=== PATIENT | male | born 1970 ===

== ENCOUNTER 2020-07-17 12:56 | Outpatient (REF) | payer OTHER, SELFPAY | END 2020-07-17 12:57 | disposition home or self-care (01) | LOC: HO.LAB 12:56 | PROVIDERS: Visit Provider Internal Medicine | DX: Z20.828 Contact with and (suspected) exposure to other viral communicable diseases (principal) | CPT/HCPCS: 36415; 87635 ==

== ENCOUNTER → 2020-08-03 09:22 | Outpatient (BNVA) | payer OTHER, SELFPAY | PROVIDERS: Visit Provider Internal Medicine Gastroenterology | DX: K29.70 Gastritis, unspecified, without bleeding (principal); K57.30 Diverticulosis of large intestine without perforation or abscess without bleeding; D12.6 Benign neoplasm of colon, unspecified; F11.90 Opioid use, unspecified, uncomplicated; Z98.890 Other specified postprocedural states | CPT/HCPCS: 99212 ==

== ENCOUNTER 2020-09-14 10:16 | Outpatient (REF) | payer OTHER, SELFPAY | END 2020-09-14 10:17 | disposition home or self-care (01) | LOC: HO.LAB 10:16 | PROVIDERS: Visit Provider Internal Medicine | DX: Z20.828 Contact with and (suspected) exposure to other viral communicable diseases (principal) | CPT/HCPCS: C9803; U0003 ==

== ENCOUNTER 2020-10-12 20:07 | Inpatient (IN) | payer OTHER, SELFPAY ==
--- NOTE | 2020-10-12 | XR_ITS ---
EXAMINATION: XR FINGER, LEFT CLINICAL INFORMATION: Index finger swelling. COMPARISON: No old films available for comparison at TECHNIQUE: 3 views of the left index finger. FINDINGS: There are 2 pins traversing the DIP joint and mid segment mid phalanx fracture second digit. A third pin is seen. Traversing obliquely through the fracture. There is moderate soft tissue swelling distal index finger. Is amputation of third digit beyond the proximal phalanx. No other abnormality seen. XR/XR finger LT min 2V IMPRESSION: Satisfactory alignment of mid segment mid phalanx fracture second digit with [address] There are 2 pins traversing the PIP joint. There is moderate soft tissue swelling involving the index finger. There is amputation of third digit beyond the proximal phalanx.
[2020-10-12 21:14] VITALS: BP 156/95; PULSE 111; RESP 18; TEMP 37.2; O2SAT 98; BMI 34.0
[2020-10-12 22:46] LABS: MANUAL DIFF FLAG NO
[2020-10-12 22:47] LABS: Basophils Percent Auto 0.2 % (0-2); Eosinophils Percent Auto 0.3 % (0-4); Hematocrit 44.1 % (42-52); Hemoglobin 15.7 g/dl (14.0-18.0); Imm Gran Abs Auto 0.04 X10*3/uL (0.00-0.03); Imm Gran Pct Auto 0.3 % (0.0-0.4); Lymphocytes Absolute Auto 1.8 X10*3/uL (1.2-4.9); Lymphocytes Percent Auto 14.3 % (20-40); Mean Corpuscular HGB Conc 35.6 g/dl (31.0-36.0); Mean Corpuscular Hemoglobin 29.5 pg (27.0-33.0); Mean Corpuscular Volume 82.9 fL (80-98); Monocytes Absolute Auto 0.9 X10*3/uL (0.1-1.2); Monocytes Percent Auto 7.1 % (2-11); Neutrophils Absolute Auto 9.8 X10*3/uL (2.0-8.3); Neutrophils Percent Auto 77.8 % (45-73); Platelet Count 212 X10*3/uL (160-400); Red Blood Count 5.32 X10*6/uL (4.60-5.80); Red Cell Distribution Width 12.2 % (11.0-16.0); White Blood Count 12.5 X10*3/uL (4.8-10.8)
[2020-10-12 23:05] LABS: Anion Gap 14 (12-20); Blood Urea Nitrogen 21 mg/dL (9-16); Calcium 9.1 mg/dL (8.4-10.2); Carbon Dioxide 27 mmol/L (22-29); Chloride 104 mmol/L (96-108); Creatinine Clr Calc Pharmacy 100.9; Estimated Glomerular Filt Rate > 60; Glucose Random 106 mg/dL (60-115); Potassium 4.1 mmol/l (3.3-5.1); Sodium 141 mmol/L (135-145)
[2020-10-12 23:07] LABS: INTERNATIONAL NORM RATIO 1.1 (0.9-1.1)
[2020-10-12 23:10] LABS: Partial Thromboplastin Time 32.9 SEC (24.1-38.0)
[2020-10-13] VITALS (8 sets, daily range): BP systolic 116–148; BP diastolic 64–108; PULSE 52–89; RESP 14–18; TEMP 36.6–36.9; O2SAT 95–99
--- NOTE | 2020-10-13 00:43 | CT_ITS ---
Patient name: Camilo Alejandre Date of : 1970 EXAMINATION: CT HEAD, LEFT WITH CONTRAST CLINICAL INFORMATION: Swelling of the left index finger. Question tenosynovitis. COMPARISON: Radiographs 10/12/2020 TECHNIQUE: Multidetector volumetric imaging of the left hand performed after administration of 85 mL of Omnipaque 350 IV contrast. Coronal and sagittal reformatted images are obtained and reviewed. This CT examination was performed using dose optimization techniques as appropriate, variously including the following: *Automated exposure control *Adjustment of mA and/or kV according to patient size (this includes techniques or standardized protocols for targeted exams where dose is matched to indication/reason for exam; i.e. extremities or head) *Use of iterative reconstruction technique DLP: 123 mGy-cm FINDINGS: There is a radiopaque pin in place in the second digit across the distal interphalangeal joint. There is a separate radiopaque wire at the middle phalanx. Alignment is maintained. There is soft tissue swelling of the second digit distally. No gross evidence of fluid collection. There is no definite fluid seen along the course of the extensor flexor tendons. Chronic appearing posttraumatic deformity at the distal radius. Amputation of the third digit at the head of the proximal phalanx. CT/CT hand LT w con IMPRESSION: Soft tissue swelling of the distal aspect of the second digit. No definite fluid collection. No gross evidence of fluid tracking along the tendon sheaths.
--- NOTE | 2020-10-13 01:07 | ED_ITS ---
HPI - Extremity Problem General Chief complaint: Extremity Injury, Upper Stated complaint: FINGER INFECTION Time Seen by Provider: 10/13/20 00:39 Source: patient Mode of arrival: ambulatory Limitations: no limitations History of Present Illness HPI Narrative: Patient presents to the left index finger swelling/redness, and pain that has been occurring since . Patient has history of crush injury and right index finger that had multiple wires placed by [facility] hand surgeon Dr. Vela. Patient states since incident he was informed by the surgeon he would not be able to flex his finger all the way. . Patient states small pus from fingertip MD Complaint: extremity pain Related Data Allergies Allergy/AdvReac Type Severity Reaction Status Date / Time No Known Allergies Allergy Verified 10/12/20 21:14 [No Known Allergies*] none Allergy Unknown Unknown Uncoded 10/12/20 21:14 Review of Systems Review of Systems: Yes all other systems are reviewed and are negative Constitutional: Constitutional: Reports as per HPI and Reports no additional constitutional complaints Eyes: Eyes: Reports as per HPI and Reports no additional eye complaints ENT: Reports system reviewed and no additional complaints, except as documented and Reports as per HPI Cardiovascular: Cardiovascular: Reports as per HPI and Reports no additional cardiovascular complaints Respiratory: Respiratory: Reports as per HPI and Reports no additional r espiratory complaints Gastrointestinal: Gastrointestinal: Reports as per HPI and Reports no additi onal gastrointestinal complaints Genitourinary: Genitourinary: Reports no additional male genitourinary complaints and Reports as per HPI Musculoskeletal: Musculoskeletal: Reports no additional musculoskeletal complaints and Reports as per HPI Comments: Right index finger swollen PAIN. Neurologic: Reports system reviewed and no additional complaints, except as documented and Reports as per HPI Psychiatric: Psychiatric: Reports no additional psychiatric complaints and Reports as per HPI [facility] Past Medical History Surgical History (Updated 08/03/20 @ 09:27 by Nazia Hooper MA) History of colonoscopy Family History Family History (Updated 08/03/20 @ 09:30 by Nazia Hooper MA) Father History of cancer Mother History of high blood pressure Social History Social History (Updated 08/03/20 @ 09:28 by Nazia Hooper MA) Alcohol intake: never Smoking Status: Current every day smoker Tobacco Type: Cigarette Packs Per Day: 0.5 Cigarettes Per Day: 10.0 Use of substances other than those prescribed or required for medical reasons: No Advance Directives: No Advance Directives Information Provided: No Physical Exam Vital Signs: Vital Signs: Last Vital Signs Temp 98.5 F 10/13/20 00:24 Pulse 67 10/13/20 03:05 Resp 16 10/13/20 03:05 BP 121/86 10/13/20 03:05 Pulse Ox 97 10/13/20 00:24 Body Mass Index 34.0 Const: General: cooperative, healthy appearing, comfortable, no acute distress, well developed, alert and awake Orientation/consciousness: patient oriented x3 HENMT: Head: Yes normal to inspection and Yes No palpable skull fracture present Eyes: General: appearance normal, both eyes and all related structures Neck: Neck: Yes normal visual inspection, Yes full ROM, Yes no lymphadenopathy, Yes no meningeal signs, Yes trachea midline, Yes supple and No tender Chest: Chest palpation & inspection: normal inspection of the chest and normal palpation of entire chest wall Breast/axilla inspection: normal inspection of the breasts Resp: Effort & Inspection: normal respiratory effort and able to speak in complete sentences Auscultation: clear to auscultation bilaterally Cardio: Jugular venous distension: no JVD Heart sounds: S1 normal heart sound present and S2 normal heart sound present GI: Inspection: Yes normal to inspection and No abdominal wall ecchymosis Palpation (GI): Soft to palpation, not firm, nontender, no guarding and not rigid : General: Yes no CVA tenderness Back/Spine/Pelvis: Back: no CVA tenderness and No back tenderness Skin: General skin exam: no rashes or lesions noted and elasticity normal Neuro: General: patient oriented x3, gait normal, no meningeal signs and CN's II-XI intact bilaterally Cranial nerves: Yes CN's II-XII intact bilaterally Extrem: Other: left index finger is swollen with decreased flexion and mild serosangous liquid drainage from fingertip. finger is red.. Psych: Appearance: grossly normal, well kempt and not disheveled Course Course Course Narrative: Patient will have labs and be sent for CT scan to rule out for tenosynovitis. Patient started on antibiotics IV. Reevaluation(s) Reevaluation #1: CASE SIGNED OUT TO DR. ORNELAS. PENDING CT SCAN OF HAND RESULTS Time: 02:09 Reevaluation #2: PATIENT'S CT SCAN OF THE Hand NEGATIVE FOR ANY TENOSYNOVITIS, ABSCESS, OR CELLULITIS. Time: 03:00 Reevaluation #3: Patient to be admitted to hospitalist for IV antibiotics. Hospitalist accepted case Time: 04:02 MDM - Extremity (Nontraumatic) MDM Narrative Medical decision making narrative: Left index finger cellulitis Lab Data Result diagrams: 10/12/20 22:38 10/12/20 22:38 Labs: Lab Results 10/12/20 10/12/20 10/12/20 Range/Units 22:38 22:38 22:38 WBC 12.5 H (4.8-10.8) X10*3/uL RBC 5.32 (4.60-5.80) X10*6/uL Hgb 15.7 (14.0-18.0) g/dl Hct 44.1 (42-52) % MCV 82.9 (80-98) fL MCH 29.5 (27.0-33.0) pg MCHC 35.6 (31.0-36.0) g/dl RDW 12.2 (11.0-16.0) % Plt Count 212 (160-400) X10*3/uL MPV 10.0 (9.4-12.4) fL Immature Gran % (Auto) 0.3 (0.0-0.4) % Neut % (Auto) 77.8 H (45-73) % Lymph % (Auto) 14.3 L (20-40) % [place] % (Auto) 7.1 (2-11) % Eos % (Auto) 0.3 (0-4) % Baso % (Auto) 0.2 (0-2) % Lymph # (Auto) 1.8 (1.2-4.9) X10*3/uL [place] # (Auto) 0.9 (0.1-1.2) X10*3/uL Eos # (Auto) 0.0 (0.0-0.4) X10*3/uL Baso # (Auto) 0.0 (0.0-0.2) X10*3/uL Abs Immat Gran (auto) 0.04 H (0.00-0.03) X10*3/uL Absolute Neuts (auto) 9.8 H (2.0-8.3) X10*3/uL Absolute Nucleated RBC 0.000 (0.0-0.012) X10*3/uL Nucleated RBC % (auto) 0.0 (0.0-0.2) /100WBC PT 13.0 (10.8-13.0) SEC INR 1.1 (0.9-1.1) APTT 32.9 (24.1-38.0) SEC Sodium 141 (135-145) mmol/L Potassium 4.1 (3.3-5.1) mmol/l Chloride 104 (96-108) mmol/L Carbon Dioxide 27 (22-29) mmol/L Anion Gap 14 (12-20) BUN 21 H (9-16) mg/dL Creatinine 1.03 (0.5-1.4) mg/dL Estim Creat Clear Calc 100.9 Estimated GFR > 60 Random Glucose 106 (60-115) mg/dL Lactic Acid (0.5-2.0) mmol/L Calcium 9.1 (8.4-10.2) mg/dL COVID-19 ([facility]) (Negative) COVID-19 Clin Com 10/13/20 10/13/20 Range/Units 01:11 03:40 WBC (4.8-10.8) X10*3/uL RBC (4.60-5.80) X10*6/uL Hgb (14.0-18.0) g/dl Hct (42-52) % MCV (80-98) fL MCH (27.0-33.0) pg MCHC (31.0-36.0) g/dl RDW (11.0-16.0) % Plt Count (160-400) X10*3/uL MPV (9.4-12.4) fL Immature Gran % (Auto) (0.0-0.4) % Neut % (Auto) (45-73) % Lymph % (Auto) (20-40) % [place] % (Auto) (2-11) % Eos % (Auto) (0-4) % Baso % (Auto) (0-2) % Lymph # (Auto) (1.2-4.9) X10*3/uL [place] # (Auto) (0.1-1.2) X10*3/uL Eos # (Auto) (0.0-0.4) X10*3/uL Baso # (Auto) (0.0-0.2) X10*3/uL Abs Immat Gran (auto) (0.00-0.03) X10*3/uL Absolute Neuts (auto) (2.0-8.3) X10*3/uL Absolute Nucleated RBC (0.0-0.012) X10*3/uL Nucleated RBC % (auto) (0.0-0.2) /100WBC PT (10.8-13.0) SEC INR (0.9-1.1) APTT (24.1-38.0) SEC Sodium (135-145) mmol/L Potassium (3.3-5.1) mmol/l Chloride (96-108) mmol/L Carbon Dioxide (22-29) mmol/L Anion Gap (12-20) BUN (9-16) mg/dL Creatinine (0.5-1.4) mg/dL Estim Creat Clear Calc Estimated GFR Random Glucose (60-115) mg/dL Lactic Acid 0.7 (0.5-2.0) mmol/L Calcium (8.4-10.2) mg/dL COVID-19 ([facility]) Negative (Negative) COVID-19 Clin Com See Note Discharge Plan Discharge Clinical Impression: Cellulitis Patient Disposition: Admitted As Inpatient
[2020-10-13 01:33] LABS: Lactic Acid 0.7 mmol/L (0.5-2.0)
[2020-10-13] MEDS: Piperacillin Sodium/Tazobactam 3.375 GM in 0.9 % Sodium Chloride 50 ML IV ×4 (01:39→20:11)
--- NOTE | 2020-10-13 02:24 | PC.NURSE ---
20 left ac placed, panfilo well no complications
[2020-10-13] MEDS: iohexoL 350 MG/ML 100 ML INFUS..BTL 85 ML IV (02:25)
--- NOTE | 2020-10-13 03:58 | PM.IMHP ---
History of Present Illness Date of Service: 10/13/20 Chief Complaint: Right index finger pain and swelling 50-year-old male with a past medical history of IV drug abuse, hep C, tobacco dependence, recent history of right index finger surgery after fracture with wires in place about a month ago at [facility] by Dr. Vela; not able to completely flex the finger since the surgery; has been having increased pain and swelling and some discharge from the index finger tip since [place]. The symptoms were not improving decided to come to the ER for further help. Denies any fever chills cough. Denies any recent travel or sick contacts. Denies any numbness tingling. Review of all other systems is negative except mentioned above ER course: For ER team finger noted to be swollen, decreased flexion as mentioned prior, CT scan showed soft tissue swelling; Given broad-spectrum IV antibiotics, blood cultures were sent, admitted to the hospital for further management Review of Systems Neurologic: Reports system reviewed and no additional complaints, except as documented and Reports as per [facility] Family History (Updated 08/03/20 @ 09:30 by Nazia Hooper MA) Father History of cancer Mother History of high blood pressure Surgical History (Updated 08/03/20 @ 09:27 by Nazia Hooper MA) History of colonoscopy Social History (Updated 08/03/20 @ 09:28 by Nazia Hooper MA) Alcohol intake: never Smoking Status: Current every day smoker Tobacco Type: Cigarette Packs Per Day: 0.5 Cigarettes Per Day: 10.0 Use of substances other than those prescribed or required for medical reasons: No Advance Directives: No Advance Directives Information Provided: No Meds Allergies Allergy/AdvReac Type Severity Reaction Status Date / Time No Known Allergies Allergy Verified 10/12/20 21:14 [No Known Allergies*] none Allergy Unknown Unknown Uncoded 10/12/20 21:14 Physical Exam Vital Signs and Narrative: Vital Signs: Last Vital Signs Temp 98.5 F 10/13/20 00:24 Pulse 67 10/13/20 03:05 Resp 16 10/13/20 03:05 BP 121/86 10/13/20 03:05 Pulse Ox 97 10/13/20 00:24 Body Mass Index 34.0 Gen: Appears be in no acute distress HEENT: NCAT, Moist mucosa. Pulmonary: Vesicular breath sounds, fair air entry CVS: Normal S1-S2 Abdomen: BS+, Soft, Nontender Extremities: Warm well perfused; right index finger is swollen, erythematous on the dorsum and tender. Right middle finger is amputated. Neuro: Alert and awake. Results Labs CBC and Chem 7: 10/12/20 22:38 10/12/20 22:38 Labs: Laboratory Results - last 24 hr 10/12/20 10/12/20 10/12/20 22:38 22:38 22:38 MCV 82.9 MCH 29.5 MCHC 35.6 RDW 12.2 Plt Count 212 MPV 10.0 Immature Gran % (Auto) 0.3 Neut % (Auto) 77.8 H Lymph % (Auto) 14.3 L [place] % (Auto) 7.1 Eos % (Auto) 0.3 Baso % (Auto) 0.2 Lymph # (Auto) 1.8 [place] # (Auto) 0.9 Eos # (Auto) 0.0 Baso # (Auto) 0.0 Abs Immat Gran (auto) 0.04 H Absolute Neuts (auto) 9.8 H Absolute Nucleated RBC 0.000 Nucleated RBC % (auto) 0.0 PT 13.0 INR 1.1 APTT 32.9 Anion Gap 14 Estim Creat Clear Calc 100.9 Estimated GFR > 60 Random Glucose 106 Lactic Acid Calcium 9.1 10/13/20 01:11 MCV MCH MCHC RDW Plt Count MPV Immature Gran % (Auto) Neut % (Auto) Lymph % (Auto) [place] % (Auto) Eos % (Auto) Baso % (Auto) Lymph # (Auto) [place] # (Auto) Eos # (Auto) Baso # (Auto) Abs Immat Gran (auto) Absolute Neuts (auto) Absolute Nucleated RBC Nucleated RBC % (auto) PT INR APTT Anion Gap Estim Creat Clear Calc Estimated GFR Random Glucose Lactic Acid 0.7 Calcium Imaging Radiologist's Impressions: Impressions Finger X-Ray 10/12/20 00:00 IMPRESSION: Satisfactory alignment of mid segment mid phalanx fracture second digit with [address] There are 2 pins traversing the PIP joint. There is moderate soft tissue swelling involving the index finger. There is amputation of third digit beyond the proximal phalanx. Hand CT 10/13/20 00:43 IMPRESSION: Soft tissue swelling of the distal aspect of the second digit. No definite fluid collection. No gross evidence of fluid tracking along the tendon sheaths. Assessment and Plan (1) Cellulitis: Status: Acute 50-year-old male with a past medical history of tobacco dependence, IV drug abuse, hep C, recent history of right finger surgery at [facility] presented with pain/swelling for the past 4 days. Noted to have cellulitis. Admitted to the hospital for further management Right hand index finger cellulitis: No crepitus noticed CT scan showed soft tissue swelling Continue IV vanc and Zosyn Hand surgery consulted Pain control Tobacco dependence: Offered nicotine patch DVT prophylaxis: Subcu heparin Full code
[2020-10-13 04:00] LABS: COVID-19 Test Negative (Negative)
[2020-10-13] MEDS: 0.9 % Sodium Chloride 1,000 ML 100 ML IVCONT ×2 (04:41→15:37)
[2020-10-13] MEDS: Heparin Sodium,Porcine 5,000 UNIT/ML VIAL 5000 UNIT SUBCUT (06:45)
--- NOTE | 2020-10-13 07:07 | PC.NURSE ---
attempted to give report to [facility]. no one answered the phone when transfered to the pod.
--- NOTE | 2020-10-13 08:11 | PC.NURSE ---
REPORT TO [facility].
[2020-10-13] MEDS: Nicotine 14 MG PATCH.TD24 TRANSDERMA (09:30)
--- NOTE | 2020-10-13 12:26 | MHC.CM.PN ---
Male 50 Dx Hand Cellulitis He lives with Family. He works and is independent all functional mobility. PCP is @ [facility]. He will be evaluated by a Hand Surgeon. DP home no services family transport. CM will follow.
[2020-10-13 13:59] LABS: Vancomycin Trough 9.7 mcg/mL (10.0-20.0)
[2020-10-13] MEDS: vancomycin HCL 1,000 MG in 0.9 % Sodium Chloride 250 ML 270 MG IV (15:00)
[2020-10-14] VITALS (15 sets, daily range): BP systolic 116–141; BP diastolic 71–99; PULSE 50–87; RESP 16–18; TEMP 36.1–36.9; O2SAT 96–99; BMI 34.0
[2020-10-14] MEDS: Piperacillin Sodium/Tazobactam 3.375 GM in 0.9 % Sodium Chloride 50 ML IV ×4 (01:15→19:22)
[2020-10-14] MEDS: 0.9 % Sodium Chloride 1,000 ML 100 ML IVCONT (01:41)
[2020-10-14] MEDS: vancomycin HCL 1,000 MG in 0.9 % Sodium Chloride 250 ML 270 MG IV ×2 (01:42→17:47)
[2020-10-14 06:00] LABS: Hematocrit 41.1 % (42-52); Hemoglobin 14.5 g/dl (14.0-18.0); Mean Corpuscular HGB Conc 35.3 g/dl (31.0-36.0); Mean Corpuscular Hemoglobin 29.5 pg (27.0-33.0); Mean Corpuscular Volume 83.5 fL (80-98); Mean Platelet Volume 10.8 fL (9.4-12.4); Platelet Count 182 X10*3/uL (160-400); Red Blood Count 4.92 X10*6/uL (4.60-5.80); Red Cell Distribution Width 12.1 % (11.0-16.0); White Blood Count 6.4 X10*3/uL (4.8-10.8)
[2020-10-14 06:48] LABS: Anion Gap 13 (12-20); Blood Urea Nitrogen 18 mg/dL (9-16); Calcium 8.4 mg/dL (8.4-10.2); Carbon Dioxide 23 mmol/L (22-29); Chloride 108 mmol/L (96-108); Creatinine Clr Calc Pharmacy 119.5; Estimated Glomerular Filt Rate > 60; Glucose Random 86 mg/dL (60-115); Potassium 4.2 mmol/l (3.3-5.1); Sodium 140 mmol/L (135-145)
[2020-10-14] MEDS: Nicotine 14 MG PATCH.TD24 TRANSDERMA (09:13)
[2020-10-14] MEDS: 0.9 % Sodium Chloride Flush 3 ML SYRINGE IVFLUSH ×2 (09:15→22:20)
--- NOTE | 2020-10-14 10:32 | MHC.CDI.CONC ---
CDI Concurrent Query Service Date: 10/14/20 Documentation Clarification: Please clarify if you are treating a probable/suspected/likely or confirmed: Please clarify laterality: Left index finger cellulitis Right index finger cellulitis Provider Response: Other Other Diagnosis: Left index finger cellulitis PLEASE DO NOT DELETE/MODIFY EXISTING CONTENT Additional information is needed in order to code to the highest accuracy and appropriate Severity of Illness (SOI). Please clarify the information noted below in your progress notes and discharge summary. Risk Factors/Clinical Indicators/Treatments 50 year old male admitted with upper extremity injury. Recent finger surgery at [facility]. Per ED Impression: Left Index Finger Cellulitis Per H&P: Right Index Finger Cellulitis CDS: Monica Wang RN Contact Number: [phone] Please Review the information above and exercise your independent professional judgment in responding to the query. If you concur, pleas document in the PROGRESS NOTES and DISCHARGE SUMMARY. If you do not agree with the query, please document in the query above. THIS QUERY IS PART OF THE PERMANENT MEDICAL RECORD
--- NOTE | 2020-10-14 11:57 | P.HPSUR_ITS ---
Pre-Procedural Eval Section A The patient is an INPATIENT: Yes Section B Chief Complaint: Hand Cellulitis Details of Present Illness: Left index finger infection with retained implants. Relevant Family History (Specify if Yes): No Relevant Social History: Other (specify) (ivdu hx) Present Medications: see Short Stay Collaborative assessment Medical History: Significant History (ivdu) History of Previous Operations: Relevant previous surgery/procedure and date(s) (left IF CRPP at [facility] approx 2 mos ago) Allergies: Allergies Allergy/AdvReac Type Severity Reaction Status Date / Time No Known Allergies Allergy Verified 10/12/20 21:14 [No Known Allergies*] none Allergy Unknown Unknown Uncoded 10/12/20 21:14 Review of Systems Sugical H&P ROS: Negative: Constitution, Cardiovascular, Respiratory, Neurological, Psychiatric, Hem-Onc, Allergic/Immunologic, Gastrointestinal, Genitourinary, Integumentary, Endocrine and Eyes/Ears/Nose/Throat and Yes, Specify: Musculoskeletal (s/p crpp at outside facility 2 mos ago. drainage x approx 5 days) Exam Surgical H&P Exam: Not Evaluated: HEENT, Not Evaluated: Heart and Not Evaluated: Lungs and Significant Findings: Extremities (left index finger + red, swollen , mild ttp, + purulent drainage from tip. XR shows kwires x3 and comminuted partially healed fx of P2 with radiolucency about 2 kwires) Plan Diagnosis/Plan: Unchanged I have reviewed the history and physical and performed a pertinent physical examination on my patient. No changes have occurred unless specified. Pt for Left IF I& D, and removal of implants
--- NOTE | 2020-10-14 13:11 | MHC.CM.PN ---
Patient is on IV Zosyn and IV Vanco for cellulitis of left index finger and does have a history of IVDA. Per surgical cons, patient will be going for I&D and hardware removal. Discharge plan is home no services. CM will continue to follow patient for discharge needs.
--- NOTE | 2020-10-14 13:27 | MHC.CM.PN ---
Patient is currently on IV Zosyn and IV Vanco for cellulitis to left index finger. Per surgical cons patient will need I&D with hardware removal. Patient does have a history of IVDA. Discharge plan is home no services at this time. CM will continue to follow patient for discharge needs.
--- NOTE | 2020-10-14 14:13 | P.PNIM_ITS ---
Subjective Subjective Date of Service: 10/14/20 Interval History: the patient was seen and evaluated this morning Laying in bed, feels comfortable Denies any fever, chills or shortness of breath Swelling and pain in his left index finger No reported other overnight events. Systemic review: No fever, chills or weakness No chest pain, palpitation No shortness of breath or coughing No abdominal pain, nausea or vomiting No urinary symptoms Left index finger swelling and pain Physical Exam Vital Signs: Vital Signs: Last Vital Signs Temp 97.7 F 10/14/20 11:38 Pulse 61 10/14/20 11:38 Resp 18 10/14/20 11:38 BP 140/90 H 10/14/20 11:38 Pulse Ox 97 10/14/20 11:38 Body Mass Index 34.0 Constitutional : Alert, oriented, not in distress Neck : Normal inspection, Supple Cardiovascular : RRR, S1 S2, no lower extremity edema Respiratory : Good bilateral air entry, no crackles, wheezes or rhonchi Gastrointestinal: soft, lax, Normal bowel sounds, Non tender Skin : Warm/Dry, No rash Musculoskeletal: Left index finger swollen, erythematous, tender to touch, puncture area with dry secretions. Lost the middle finger and left hand. Neurological : Alert & oriented x3, No focal deficit Objective Data Current Medications Generic Name Dose Route Start Last Admin Trade Name Freq PRN Reason Stop Dose Admin Acetaminophen 650 mg 10/13/20 03:31 Acetaminophen 325 Mg Tablet PO Q6H PRN Pain, Mild (Pain Scale 1-3) Heparin Sodium (Porcine) 5,000 unit 10/13/20 04:00 10/14/20 13:02 Heparin Sodium,Porcine 5,000 Unit/Ml Vial SUBCUT Not Given Q8H [place] Hydroxyzine HCl 50 mg 10/13/20 17:26 Hydroxyzine Hcl 50 Mg Tablet PO Q6H PRN anxiety/restlessness Piperacillin Sod/Tazobactam 50 mls @ 100 mls/hr 10/13/20 08:00 10/14/20 13:14 Sod 3.375 gm/ Sodium Chloride IV 100 mls/hr Q6H [place] Administration Vancomycin HCl 1,000 mg/ 270 mls @ 270 mls/hr 10/13/20 14:00 10/14/20 03:02 Sodium Chloride IV Infused Q12H [place] Infusion Ketorolac Tromethamine 15 mg 10/13/20 03:31 Ketorolac Tromethamine 15 Mg/Ml Vial IV 10/18/20 03:30 Q6H PRN Pain, Severe (Pain Scale 7-10) Nicotine 14 mg 10/13/20 09:00 10/14/20 09:13 Nicotine 14 Mg Patch.Td24 TRANSDERMA 14 mg DAILY [place] Administration Sodium Chloride 3 ml 10/13/20 08:00 10/14/20 09:15 0.9 % Sodium Chloride Flush 3 Ml Syringe IVFLUSH 3 ml QSHIFT [place] Administration Labs CBC & Chem 7: 10/14/20 05:20 10/14/20 05:20 Microbiology Microbiology Results: Microbiology 10/13/20 01:11 Blood - Venous Blood Culture - Preliminary No growth after 24 hours. 10/13/20 01:11 Blood - Venous Blood Culture - Preliminary No growth after 24 hours. Assessment and Plan (1) Cellulitis: Status: Acute Assessment and Plan: 50-year-old male with a past medical history of tobacco dependence, IV drug abuse, hep C, recent history of right finger surgery at [facility] presented with pain/swelling for the past 4 days. Noted to have cellulitis. Admitted to the hospital for further management Left index finger cellulitis Retained implants in the finger post operation previously Not septic CT scan showed soft tissue swelling Continue IV vanc and Zosyn Follow vancomycin trough Follow BMP Hand surgery input appreciated, for I&D and removal of the implants today Pain control Tobacco dependence: Offered nicotine patch DVT prophylaxis Subcu heparin
--- NOTE | 2020-10-14 14:40 | P.CONAN_ITS ---
HPI - Anesthesia Eval Consult details Narrative: 50 M with hx of heroine use p/f I&D PMFSH Family History Family History Father History of cancer Mother History of high blood pressure Surgical History Surgical History History of colonoscopy Social History Social History Household Members: Family Housing: House Alcohol intake: never Smoking Status: Current every day smoker Tobacco Type: Cigarette Packs Per Day: 0.5 Cigarettes Per Day: 10.0 Substance Use Type: Heroin service: No Current occupational status: employed Meds Allergies Allergy/AdvReac Type Severity Reaction Status Date / Time No Known Allergies Allergy Verified 10/12/20 21:14 [No Known Allergies*] none Allergy Unknown Unknown Uncoded 10/12/20 21:14 Home Medications Medication Instructions Recorded Confirmed Type No Known Home Meds 10/13/20 10/13/20 History Exam Exam Date and Time: October 14, 2020 1440 Height,Weight and Vital Signs: Height 5 ft 9 in Weight 104.326 kg Last Vital Signs Temp 97.3 F 10/14/20 14:02 Pulse 56 10/14/20 14:02 Resp 16 10/14/20 14:02 BP 141/99 H 10/14/20 14:02 Pulse Ox 98 10/14/20 14:02 Pertinent Lab Results Pertinent Lab Results: Laboratory Tests 10/12/20 10/12/20 10/12/20 22:38 22:38 22:38 WBC 12.5 H RBC 5.32 Hgb 15.7 Hct 44.1 MCV 82.9 MCH 29.5 MCHC 35.6 RDW 12.2 Plt Count 212 MPV 10.0 Immature Gran % (Auto) 0.3 Neut % (Auto) 77.8 H Lymph % (Auto) 14.3 L [place] % (Auto) 7.1 Eos % (Auto) 0.3 Baso % (Auto) 0.2 Lymph # (Auto) 1.8 [place] # (Auto) 0.9 Eos # (Auto) 0.0 Baso # (Auto) 0.0 Abs Immat Gran (auto) 0.04 H Absolute Neuts (auto) 9.8 H Absolute Nucleated RBC 0.000 Nucleated RBC % (auto) 0.0 PT 13.0 INR 1.1 APTT 32.9 Sodium 141 Potassium 4.1 Chloride 104 Carbon Dioxide 27 Anion Gap 14 BUN 21 H Creatinine 1.03 Estim Creat Clear Calc 100.9 Estimated GFR > 60 Random Glucose 106 Lactic Acid Calcium 9.1 Vancomycin Trough COVID-19 ([facility]) COVID-19 Clin Com 10/13/20 10/13/20 10/13/20 01:11 03:40 13:08 WBC RBC Hgb Hct MCV MCH MCHC RDW Plt Count MPV Immature Gran % (Auto) Neut % (Auto) Lymph % (Auto) [place] % (Auto) Eos % (Auto) Baso % (Auto) Lymph # (Auto) [place] # (Auto) Eos # (Auto) Baso # (Auto) Abs Immat Gran (auto) Absolute Neuts (auto) Absolute Nucleated RBC Nucleated RBC % (auto) PT INR APTT Sodium Potassium Chloride Carbon Dioxide Anion Gap BUN Creatinine Estim Creat Clear Calc Estimated GFR Random Glucose Lactic Acid 0.7 Calcium Vancomycin Trough 9.7 L COVID-19 ([facility]) Negative COVID-19 Clin Com See Note 10/14/20 10/14/20 05:20 05:20 WBC 6.4 RBC 4.92 Hgb 14.5 Hct 41.1 L MCV 83.5 MCH 29.5 MCHC 35.3 RDW 12.1 Plt Count 182 MPV 10.8 Immature Gran % (Auto) Neut % (Auto) Lymph % (Auto) [place] % (Auto) Eos % (Auto) Baso % (Auto) Lymph # (Auto) [place] # (Auto) Eos # (Auto) Baso # (Auto) Abs Immat Gran (auto) Absolute Neuts (auto) Absolute Nucleated RBC 0.000 Nucleated RBC % (auto) 0.0 PT INR APTT Sodium 140 Potassium 4.2 Chloride 108 Carbon Dioxide 23 Anion Gap 13 BUN 18 H Creatinine 0.87 Estim Creat Clear Calc 119.5 Estimated GFR > 60 Random Glucose 86 Lactic Acid Calcium 8.4 D Vancomycin Trough COVID-19 ([facility]) COVID-19 Clin Com Airway Mallampati Class: III TM Dist: >3cm Neck ROM: Full Loose/Missing/Broken Teeth: No Heart: RRR Lungs: NL Other: AO Assessment and Plan Assessment Anesthesia Assessment: Anesthesia Plan Discussed Final Anesthetic Review NPO: Yes ASA Class: III Final Preanesthetic Review: No Changes in Pt Med Stat, Meds/Allgs Chart R lily, Consent Obtained/Reviewed and Anes Risks/Benef Reviewed Patient Risk: Intermediate Procedure Risk: Low Anesthetic Plan Anesthetic Plan: GA Disposition: Standard PACU
--- NOTE | 2020-10-14 14:44 | FL_ITS ---
EXAMINATION: XR FLUOROSCOPY WITH IMAGES CLINICAL INFORMATION: Hardware removal left index finger. COMPARISON: CT of the left hand dated 10/13/2020. TECHNIQUE: Fluoroscopy performed by Maggie Colon. Fluoroscopy time: 23.3 seconds DAP: 33874.7 mGycm2 Images: 3 FINDINGS: Fluoroscopic images demonstrate interval removal of fixation hardware in the second middle phalanx as well as pin fixation through the second DIP joint. FL/FL guidance in OR IMPRESSION: Interval removal of hardware previously extending through the second DIP joint and in the second middle phalanx.
[2020-10-14] MEDS: Lactated Ringers 1,000 ML 50 ML IVCONT (14:45)
[2020-10-14 15:08] LABS: Vancomycin Trough 11.1 mcg/mL (10.0-20.0)
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
[2020-10-15] VITALS (7 sets, daily range): BP systolic 119–148; BP diastolic 67–92; PULSE 55–70; RESP 16–20; TEMP 36.3–37.1; O2SAT 95–99
[2020-10-15] MEDS: Piperacillin Sodium/Tazobactam 3.375 GM in 0.9 % Sodium Chloride 50 ML IV ×4 (02:01→21:02)
[2020-10-15] MEDS: Heparin Sodium,Porcine 5,000 UNIT/ML VIAL 5000 UNIT SUBCUT ×2 (04:12→12:58)
[2020-10-15] MEDS: vancomycin HCL 1,000 MG in 0.9 % Sodium Chloride 250 ML 270 MG IV ×2 (05:49→18:10)
[2020-10-15 07:04] LABS: Anion Gap 15 (12-20); Blood Urea Nitrogen 15 mg/dL (9-16); Calcium 8.5 mg/dL (8.4-10.2); Carbon Dioxide 22 mmol/L (22-29); Chloride 106 mmol/L (96-108); Creatinine Clr Calc Pharmacy 108.3; Estimated Glomerular Filt Rate > 60; Glucose Random 93 mg/dL (60-115); Sodium 139 mmol/L (135-145)
--- NOTE | 2020-10-15 08:56 | HO.POSTANES ---
Post Anesthesia Evaluation Post Anesthesia Evaluation Vital Signs: Vital Signs Temp Pulse Resp BP Pulse Ox 10/15/20 08:00 97.8 F 55 17 140/86 H 99 10/15/20 03:34 98 F 56 18 119/67 95 10/15/20 00:00 98.1 F 64 18 130/85 96 Anesthesia: General LMA Mental Status: Sedated Pain Control: Satisfactory Nausea/Vomiting: None Hydration: Adequate Anesthesia-Related Issues: No Anes. Related Issues
[2020-10-15] MEDS: Nicotine 14 MG PATCH.TD24 TRANSDERMA (09:38)
[2020-10-15] MEDS: 0.9 % Sodium Chloride Flush 3 ML SYRINGE IVFLUSH (09:39)
[2020-10-15] MEDS: oxyCODONE HCl Immed Release 5 MG TABLET PO (09:39)
--- NOTE | 2020-10-15 14:38 | HO.PM.IMPN ---
Subjective Subjective Date of Service: 10/15/20 Interval History: seen and examined with sign builder supervisor services no complaints willing to go to [facility] if needed ROS General - no fevers or chills Cardiovascular - no chest pain Respiratory - no shortness of breath or cough Abdominal- no abdominal pain, nausea, vomiting, diarrhea Physical Exam Vital Signs: Vital Signs: Last Vital Signs Temp 97.3 F 10/15/20 11:50 Pulse 66 10/15/20 11:50 Resp 16 10/15/20 11:50 BP 126/81 10/15/20 11:50 Pulse Ox 98 10/15/20 13:59 Body Mass Index 34.0 Const: Other: General - no acute distress, appears comfortable Cardiovascular - regular rate and rhythm, S1-S2 Lungs - normal respiratory effort, clear to auscultation bilaterally, no wheezing Abdomen - soft, nontender, no rebound or guarding Extremities - no edema bilaterally Neuro - awake and alert, no focal deficits Skin - L index in dressing Objective Data Current Medications Generic Name Dose Route Start Last Admin Trade Name Freq PRN Reason Stop Dose Admin Acetaminophen 650 mg 10/13/20 03:31 Acetaminophen 325 Mg Tablet PO Q6H PRN Pain, Mild (Pain Scale 1-3) Heparin Sodium (Porcine) 5,000 unit 10/13/20 04:00 10/15/20 12:58 Heparin Sodium,Porcine 5,000 Unit/Ml Vial SUBCUT 5,000 unit Q8H FR[facility]LIN Administration Hydromorphone HCl 0.25 mg 10/14/20 14:44 Hydromorphone Hcl 0.5 Mg/0.5 Ml Syringe IVPUSH Q5M PRN Pain, Severe (Pain Scale 7-10) Hydroxyzine HCl 50 mg 10/13/20 17:26 Hydroxyzine Hcl 50 Mg Tablet PO Q6H PRN anxiety/restlessness Piperacillin Sod/Tazobactam 50 mls @ 100 mls/hr 10/13/20 08:00 10/15/20 13:30 Sod 3.375 gm/ Sodium Chloride IV Infused Q6H FR[facility]LIN Infusion Lactated Ringer's 1,000 mls @ 50 mls/hr 10/14/20 14:45 10/15/20 13:35 Lr IVCONT Not Given .Q20H FRANKLIN Promethazine HCl 12.5 mg/ 50.5 mls @ 202 mls/hr 10/14/20 14:44 Sodium Chloride IV ONCE PRN Nausea and Vomiting Vancomycin HCl 1,000 mg/ 270 mls @ 270 mls/hr 10/14/20 18:00 10/15/20 06:53 Sodium Chloride IV Infused Q12H [facility]LIN Infusion Ketorolac Tromethamine 15 mg 10/13/20 03:31 Ketorolac Tromethamine 15 Mg/Ml Vial IV 10/18/20 03:30 Q6H PRN Pain, Severe (Pain Scale 7-10) Ketorolac Tromethamine 15 mg 10/14/20 14:44 Ketorolac Tromethamine 15 Mg/Ml Vial IVPUSH ONCE PRN Pain, Moderate (Pain Scale 4-6 Nicotine 14 mg 10/13/20 09:00 10/15/20 09:38 Nicotine 14 Mg Patch.Td24 TRANSDERMA 14 mg DAILY [facility]LIN Administration Ondansetron HCl 4 mg 10/14/20 14:44 Ondansetron Hcl 4 Mg/2 Ml Vial IVPUSH ONCE PRN Nausea and Vomiting Sodium Chloride 3 ml 10/13/20 08:00 10/15/20 09:39 0.9 % Sodium Chloride Flush 3 Ml Syringe IVFLUSH 3 ml QSHIFT FRANKLIN Administration Labs CBC & Chem 7: 10/14/20 05:20 10/15/20 06:02 Microbiology Microbiology Results: Microbiology 10/14/20 Unknown Finger Left Index Gram Stain - Final 10/14/20 Unknown Finger Left Index Routine Culture - Preliminary Gram negative ty 10/14/20 Unknown Bone Gram Stain - Final 10/14/20 Unknown Bone Routine Culture - Preliminary Gram negative ty 10/13/20 01:11 Blood - Venous Blood Culture - Preliminary No growth after 48 hours. 10/13/20 01:11 Blood - Venous Blood Culture - Preliminary No growth after 48 hours. Assessment and Plan (1) Osteomyelitis of finger of left hand: Status: Acute Assessment and Plan: 50 yo M with a PMH of documented IV drug abuse (which he denies), tobacco dependence, hep C, recent finger surgery at [facility] who presented with pain and swelling for pain / swelling for 4 days prior to admission. 1. L Index finger cellulitis / osteo s/p I&D in the OR with bone + soft tissue cx growing GNB thus far vacocmyin + zosyn for now, tailor cultures pending results blood cx negative to date BMP daily while on vancomcyin 2. Tobacco dependence patch if patient desires educated on cessation 3. Opiate dependence denies IV use, reports snorting offered MAT, declines at this time Full Code DVT pptx, heparin
--- NOTE | 2020-10-15 16:00 | MHC.CM.PN ---
CM met with pt with the assistance of a hand shaper. Pt is aware he will need 6 weeks of IV Abx and will have to go to a facility. Pt reports he does not have a preference regarding which facility he goes to. pt did ask if he could go home in between DC and SNF admission to drop off his car, get clothes and check on his children however CM explained this would not be possible. He reports his car is outside but he will see if someone can pick it up for him. he reports his is in [place] until the 27 of October. CM explained if he could not get anyone to pick it up soon he should let CM know so security can be alerted as to how long the car will be in the lot. Pt is aware he will likely be here through the weekend and during that time, CM will attempt to secure a facility. LOU received a call from pts daughter, Ragini ([phone]) who reported she spoke to her father but did not think he was giving her accurate information. She reports he told her he was going to a different facility for 6 weeks of Abx but she did not think that could be correct. She reports she called her mother in [place] who told her the Abx could only be 6 says. CM explained the pt would need 6 weeks of IV Abx and would have to fo to a facility. CM explained the facility was not yet secured but when it was she would be notified of which one it would be.
--- NOTE | 2020-10-15 18:43 | P.CNID_ITS ---
History of Present Illness Data of Consult Service Date: 10/15/20 Requesting physician: Luisito Olivares Primary Care Provider: Unknown Physician HPI Reason for consult: osteomyelitis finger He presents to hospital with discomfo rt left hand as well as purulence from index finger, worse over last month. He was well until July 27 when had degloving injury after getting hand stuck in machine at work. He had degloving injury and fractures left hand as well as partial traumatic amputation of 3rd finger. He had left index finger middle phalanx fracture and had ORIF with.045 K wires and then K wires exposed He had some purulence from K wires and no cultures seen but took Keflex twice. He was scheduled for removal K-wires on October 01 but cancelled due to snow and was rescheduled to 10/14 but presented to ER here He has been seen by Hand Surgeon and has had debridement and K wires removed and cultures taken. Gram negative rods appear so far. Review of Systems Review of Systems: Yes all other systems are reviewed and are negative Neurologic: Reports system reviewed and no additional complaints, except as documented and Reports as per HPI COUNT INCLUDES [facility] Family History Family History Father History of cancer Mother History of high blood pressure Family history: reviewed and not pertinent Surgical History Surgical History History of colonoscopy Social History Social History Household Members: Family Housing: House Alcohol intake: never Smoking Status: Current every day smoker Tobacco Type: Cigarette Packs Per Day: 0.5 Cigarettes Per Day: 10.0 Substance Use Type: Heroin service: No Current occupational status: employed Meds Allergies Allergy/AdvReac Type Severity Reaction Status Date / Time No Known Allergies Allergy Verified 10/12/20 21:14 [No Known Allergies*] none Allergy Unknown Unknown Uncoded 10/12/20 21:14 Home Medications Medication Instructions Recorded Confirmed Type No Known Home Meds 10/13/20 10/13/20 History Physical Exam Vital Signs: Vital Signs: Last Vital Signs Temp 98.5 F 10/15/20 15:23 Pulse 70 10/15/20 15:23 Resp 20 10/15/20 15:23 BP 148/92 H 10/15/20 15:23 Pulse Ox 97 10/15/20 15:23 Body Mass Index 34.0 Const: General: cooperative Orientation/consciousness: oriented to person, oriented to place and oriented to time HENMT: Head: Yes normal to inspection Mouth: Normal oral and palatal mucosa present Resp: Effort & Inspection: normal respiratory effort Cardio: Rate: regular rate Rhythm: regular rhythm GI: Palpation (GI): Soft to palpation and nontender : General: Yes no CVA tenderness Back/Spine/Pelvis: Back: no CVA tenderness Skin: General skin exam: no rashes or lesions noted Neuro: Other: extremity see above picture General: oriented to person, oriented to place and oriented to time Assessment and Plan (1) Osteomyelitis of finger of left hand: Problem details: He has ORIF in finger and this is infected and patient with osteomyelitis after injury Possibly gram negative or gram positive [facility] records reviewed, Dr Vela [facility] Dr Colon is seeing patient here Status: Acute Patient will need 6 weeks IV or oral depending on culture results. (2) Displaced fracture of middle phalanx of left index finger with delayed healing: Status: Acute Results Labs CBC & Chem 7: 10/14/20 05:20 10/15/20 06:02 Labs: BMP 10/15/20 06:02 Sodium 139 Potassium 4.0 Chloride 106 Carbon Dioxide 22 BUN 15 Creatinine 0.96 Calcium 8.5 Microbiology Microbiology Results: Microbiology 10/14/20 Unknown Finger Left Index Gram Stain - Final 10/14/20 Unknown Finger Left Index Routine Culture - Preliminary Gram negative ty 10/14/20 Unknown Bone Gram Stain - Final 10/14/20 Unknown Bone Routine Culture - Preliminary Gram negative ty 10/13/20 01:11 Blood - Venous Blood Culture - Preliminary No growth after 48 hours. 10/13/20 01:11 Blood - Venous Blood Culture - Preliminary No growth after 48 hours.
[2020-10-15] MEDS: Enoxaparin Sodium 40 MG/0.4 ML SYRINGE SUBCUT (21:02)
[2020-10-16] VITALS (7 sets, daily range): BP systolic 123–148; BP diastolic 83–91; PULSE 54–78; RESP 16–20; TEMP 36.4–37.1; O2SAT 95–97
[2020-10-16] MEDS: Acetaminophen 325 MG TABLET 650 MG PO ×2 (00:16→18:02)
[2020-10-16] MEDS: 0.9 % Sodium Chloride Flush 3 ML SYRINGE IVFLUSH ×3 (00:16→17:48)
[2020-10-16] MEDS: Piperacillin Sodium/Tazobactam 3.375 GM in 0.9 % Sodium Chloride 50 ML IV ×4 (02:50→19:41)
[2020-10-16 05:18] LABS: Anion Gap 14 (12-20); Blood Urea Nitrogen 11 mg/dL (9-16); Carbon Dioxide 24 mmol/L (22-29); Chloride 107 mmol/L (96-108); Creatinine Clr Calc Pharmacy 101.9; Estimated Glomerular Filt Rate > 60; Glucose Random 105 mg/dL (60-115); Potassium 3.7 mmol/l (3.3-5.1); Sodium 141 mmol/L (135-145)
[2020-10-16 05:22] LABS: Vancomycin Trough 10.3 mcg/mL (10.0-20.0)
[2020-10-16] MEDS: vancomycin HCL 1,000 MG in 0.9 % Sodium Chloride 250 ML 270 MG IV ×2 (06:16→17:49)
[2020-10-16] MEDS: Nicotine 14 MG PATCH.TD24 TRANSDERMA (08:00)
--- NOTE | 2020-10-16 10:34 | HO.PM.IMPN ---
Subjective Subjective Date of Service: 10/16/20 Interval History: seen and examined with diplomatic interpreter/translator services no complaints pain controlled this AM ROS General - no fevers or chills Cardiovascular - no chest pain Respiratory - no shortness of breath or cough Abdominal- no abdominal pain, nausea, vomiting, diarrhea Physical Exam Vital Signs: Vital Signs: Last Vital Signs Temp 97.8 F 10/16/20 04:30 Pulse 54 10/16/20 10:14 Resp 16 10/16/20 10:14 BP 134/83 10/16/20 10:14 Pulse Ox 95 10/16/20 10:14 Body Mass Index 34.0 Const: Other: General - no acute distress, appears comfortable Cardiovascular - regular rate and rhythm, S1-S2 Lungs - normal respiratory effort, clear to auscultation bilaterally, no wheezing Abdomen - soft, nontender, no rebound or guarding Extremities - no edema bilaterally Neuro - awake and alert, no focal deficits Skin - L index in dressing Objective Data Current Medications Generic Name Dose Route Start Last Admin Trade Name Freq PRN Reason Stop Dose Admin Acetaminophen 650 mg 10/13/20 03:31 10/16/20 00:16 Acetaminophen 325 Mg Tablet PO 650 mg Q6H PRN Administration Pain, Mild (Pain Scale 1-3) Enoxaparin Sodium 40 mg 10/15/20 21:00 10/15/20 21:02 Enoxaparin Sodium 40 Mg/0.4 Ml Syringe SUBCUT 40 mg Q24H FRANKLIN Administration Hydromorphone HCl 0.25 mg 10/14/20 14:44 Hydromorphone Hcl 0.5 Mg/0.5 Ml Syringe IVPUSH Q5M PRN Pain, Severe (Pain Scale 7-10) Hydroxyzine HCl 50 mg 10/13/20 17:26 Hydroxyzine Hcl 50 Mg Tablet PO Q6H PRN anxiety/restlessness Piperacillin Sod/Tazobactam 50 mls @ 100 mls/hr 10/13/20 08:00 10/16/20 08:31 Sod 3.375 gm/ Sodium Chloride IV Infused Q6H FRANKLIN Infusion Promethazine HCl 12.5 mg/ 50.5 mls @ 202 mls/hr 10/14/20 14:44 Sodium Chloride IV ONCE PRN Nausea and Vomiting Vancomycin HCl 1,000 mg/ 270 mls @ 270 mls/hr 10/14/20 18:00 10/16/20 07:36 Sodium Chloride IV Infused Q12H FRANKLIN Infusion Ketorolac Tromethamine 15 mg 10/14/20 14:44 Ketorolac Tromethamine 15 Mg/Ml Vial IVPUSH ONCE PRN Pain, Moderate (Pain Scale 4-6 Nicotine 14 mg 10/13/20 09:00 10/16/20 08:00 Nicotine 14 Mg Patch.Td24 TRANSDERMA 14 mg DAILY FRANKLIN Administration Ondansetron HCl 4 mg 10/14/20 14:44 Ondansetron Hcl 4 Mg/2 Ml Vial IVPUSH ONCE PRN Nausea and Vomiting Sodium Chloride 3 ml 10/13/20 08:00 10/16/20 07:36 0.9 % Sodium Chloride Flush 3 Ml Syringe IVFLUSH 3 ml QSHIFT FRANKLIN Administration Labs CBC & Chem 7: 10/14/20 05:20 10/16/20 04:46 Microbiology Microbiology Results: Microbiology 10/14/20 Unknown Bone Gram Stain - Final 10/14/20 Unknown Bone Routine Culture - Final Escherichia coli 10/14/20 Unknown Finger Left Index Gram Stain - Final 10/14/20 Unknown Finger Left Index Routine Culture - Preliminary Gram negative ty 10/13/20 01:11 Blood - Venous Blood Culture - Preliminary No growth after 48 hours. 10/13/20 01:11 Blood - Venous Blood Culture - Preliminary No growth after 48 hours. Assessment and Plan (1) Osteomyelitis of finger of left hand: Status: Acute Assessment and Plan: 50 yo M with a PMH of documented IV drug abuse (which he denies), tobacco dependence, hep C, recent finger surgery at [facility] who presented with pain and swelling for pain / swelling for 4 days prior to admission. 1. L Index finger cellulitis / osteo s/p I&D in the OR with bone + soft tissue cx growing GNB thus far vacocmyin + zosyn for now, tailor cultures pending results blood cx negative to date BMP daily while on vancomcyin ID input appreciated -- likely 6 weeks 2. Tobacco dependence patch if patient desires educated on cessation 3. Opiate dependence denies IV use, reports snorting offered MAT, declines at this time Full Code DVT pptx, heparin
--- NOTE | 2020-10-16 13:22 | MHC.CM.PN ---
NURSE CARE MANGER NOTE ELECTRONIC MEDICAL RECORD REFIEWED ALONG WITH CASE DISCUSSED WITH STAFF NURSE , PATIENT PER DOCUMENTATION WITH IV DRUG USE (WHICH PATIENT DENIES) SWELING PAINFUL INDEX FINGER. CELULITIS WITH OSTEOMYELITIS S/P INCISIONA AND DRAINAGE IN THE OR WITH BONE AND SPOFT TISSUE GROWING GRAM NEGATIVE BACILLIUS HE IS NOW ON IV VANCOMYCIN AND IV ZOSYN FINAL CULTURE REPORTS PENDING PLAN CONTINUE IV ANTIBIIOTICS AND PAIN MEDIUCATIONS , MONITOR FR FINAL CULTURESS , DAILY LABS BMP LABS WHILE ON VAN=OMYCIN PER DOCUEMNETATIN DENIES IV DRUG ABUSE ADMITS TO SNORTING OFFEREDMAT AND DECLINED DISCHARGE PLAN ANTICIPATE NEED FOR [facility] IV ABX , ONCE CULTURES CVOME BACK , PLAN FOR PIC LINE INSERTIONS IF PATIEN T AGREES TO GO TO REHAB. VIA ALL SCRIPT UPDATES SENT TO THEM
[2020-10-16] MEDS: Enoxaparin Sodium 40 MG/0.4 ML SYRINGE SUBCUT (19:42)
[2020-10-17] MEDS: Piperacillin Sodium/Tazobactam 3.375 GM in 0.9 % Sodium Chloride 50 ML IV (01:08)
[2020-10-17] MEDS: 0.9 % Sodium Chloride Flush 3 ML SYRINGE IVFLUSH ×2 (01:09→08:40)
[2020-10-17 04:00] VITALS: BP 130/80; PULSE 59; RESP 18; TEMP 36.4; O2SAT 97
[2020-10-17] MEDS: vancomycin HCL 1,000 MG in 0.9 % Sodium Chloride 250 ML 166.7 MG IV (06:19)
[2020-10-17 07:41] VITALS: BP 148/89; PULSE 61; RESP 16; TEMP 36.4; O2SAT 99
[2020-10-17 07:44] LABS: Anion Gap 13 (12-20); Blood Urea Nitrogen 14 mg/dL (9-16); Carbon Dioxide 25 mmol/L (22-29); Chloride 108 mmol/L (96-108); Creatinine Clr Calc Pharmacy 115.5; Estimated Glomerular Filt Rate > 60; Glucose Random 101 mg/dL (60-115); Potassium 3.8 mmol/l (3.3-5.1); Sodium 142 mmol/L (135-145)
[2020-10-17] MEDS: levoFLOXacin 750 MG TABLET PO (08:40)
[2020-10-17] MEDS: Nicotine 14 MG PATCH.TD24 TRANSDERMA (08:40)
[2020-10-17 11:34] VITALS: BP 154/88; PULSE 88; RESP 18; TEMP 36.2; O2SAT 98
--- NOTE | 2020-10-17 12:45 | HO.PM.IMPN ---
Subjective Subjective Date of Service: 10/17/20 Interval History: seen and examined with director experimental medicine services no complaints d/w him re: antibiotics ROS General - no fevers or chills Cardiovascular - no chest pain Respiratory - no shortness of breath or cough Abdominal- no abdominal pain, nausea, vomiting, diarrhea Physical Exam Vital Signs: Vital Signs: Last Vital Signs Temp 97.2 F 10/17/20 11:34 Pulse 88 10/17/20 11:34 Resp 18 10/17/20 11:34 BP 154/88 H 10/17/20 11:34 Pulse Ox 98 10/17/20 11:34 Body Mass Index 34.0 Const: Other: General - no acute distress, appears comfortable Cardiovascular - regular rate and rhythm, S1-S2 Lungs - normal respiratory effort, clear to auscultation bilaterally, no wheezing Abdomen - soft, nontender, no rebound or guarding Extremities - no edema bilaterally Neuro - awake and alert, no focal deficits Skin - L index in dressing Objective Data Current Medications Generic Name Dose Route Start Last Admin Trade Name Freq PRN Reason Stop Dose Admin Acetaminophen 650 mg 10/13/20 03:31 10/16/20 18:02 Acetaminophen 325 Mg Tablet PO 650 mg Q6H PRN Administration Pain, Mild (Pain Scale 1-3) Enoxaparin Sodium 40 mg 10/15/20 21:00 10/16/20 19:42 Enoxaparin Sodium 40 Mg/0.4 Ml Syringe SUBCUT 40 mg Q24H FRANKLIN Administration Hydroxyzine HCl 50 mg 10/13/20 17:26 Hydroxyzine Hcl 50 Mg Tablet PO Q6H PRN anxiety/restlessness Levofloxacin 750 mg 10/17/20 09:00 10/17/20 08:40 Levofloxacin 750 Mg Tablet PO 750 mg Q24H FRANKLIN Administration Nicotine 14 mg 10/13/20 09:00 10/17/20 08:40 Nicotine 14 Mg Patch.Td24 TRANSDERMA 14 mg DAILY FRANKLIN Administration Sodium Chloride 3 ml 10/13/20 08:00 10/17/20 08:40 0.9 % Sodium Chloride Flush 3 Ml Syringe IVFLUSH 3 ml QSHIFT FRANKLIN Administration Labs CBC & Chem 7: 10/14/20 05:20 10/17/20 07:11 Microbiology Microbiology Results: Microbiology 10/14/20 Unknown Bone Gram Stain - Final 10/14/20 Unknown Bone Routine Culture - Final Escherichia coli 10/14/20 Unknown Bone Anaerobic Culture - Preliminary Culture in progress. 10/14/20 Unknown Finger Left Index Gram Stain - Final 10/14/20 Unknown Finger Left Index Routine Culture - Final Escherichia coli 10/13/20 01:11 Blood - Venous Blood Culture - Preliminary No growth after 48 hours. 10/13/20 01:11 Blood - Venous Blood Culture - Preliminary No growth after 48 hours. Assessment and Plan (1) Osteomyelitis of finger of left hand: Status: Acute Assessment and Plan: 50 yo M with a PMH of documented IV drug abuse (which he denies), tobacco dependence, hep C, [place] [facility] [place] presented with pain and swelling for pain / swelling for 4 days prior to admission. 1. L Index finger cellulitis / osteo s/p I&D Cultures growing E. Coli sensitive to Levaquin. Changed today. Will d/w ID today about final antibiotics. If PICC not required -- will d/c on PO levaquin 2. Tobacco dependence patch if patient desires educated on cessation 3. Opiate dependence denies IV use, reports snorting offered MAT, declines at this time Full Code DVT pptx, heparin dispo: possibly home this afternoon pending final discussion with ID
--- NOTE | 2020-10-17 15:29 | P.DS_ITS ---
DS: Providers Provider Date of admission: 10/13/20 03:31 Primary care physician: [facility] Consults: 10/13/20 03:31 Consult to Orthopedics Routine Consulting Provider: Kayce Colon Reason for consultation: recent finger surgery; now cellulitis. Has provider been notified: No 10/14/20 12:52 Consult to Infectious Diseases Routine Consulting Provider: Luz Spain Reason for consultation: Cellulitis of index finger, Hx surgery, for your kind eval DS: Diagnosis Discharge Diagnosis (1) Osteomyelitis of finger of left hand: Status: Acute (2) Cellulitis: Status: Acute DS: Medications Discharge Medications Home Medications: Previous Rx's Medication Instructions Recorded levofloxacin 750 mg PO Q24H #41 tab 10/17/20 DS: Summary Hospital Course Hospital Course: Patient presented with left index finger cellulitis and concern for oste omyelitis. He was seen in consultation by Orthopedics and subsequently underwent I and D in the OR along with soft tissue and bone cultures which ultimately returned positive for E coli which was sensitive to Levaquin. Infectious Disease was consulted and recommended p.o. Levaquin 750 mg for total 6 weeks. Patient needs to follow up next week with both Infectious Disease (to determine if he needs any further antibiotics, final anaerobic cultures are pending at this time) as well as Orthopedics. He has been informed of this information with the help of a Veterinarian Laboratory Animal Care. Time Spent with Patient Time attestation: Total time spent providing and/or coordinating discharge services: Physical Exam Vital Signs: Vital Signs: Last Vital Signs Temp 97.2 F 10/17/20 11:34 Pulse 88 10/17/20 11:34 Resp 18 10/17/20 11:34 BP 154/88 H 10/17/20 11:34 Pulse Ox 98 10/17/20 11:34 Body Mass Index 34.0 Const: Other: General - no acute distress, appears comfortable Cardiovascular - regular rate and rhythm, S1-S2 Lungs - normal respiratory effort, clear to auscultation bilaterally, no wheezing Abdomen - soft, nontender, no rebound or guarding Extremities - no edema bilaterally; LUE in dressing Neuro - awake and alert, no focal deficits DS: Data Data Completed and Pending Labs on day of discharge: Laboratory Last Values WBC 6.4 X10*3/uL (4.8-10.8) 10/14/20 05:20 RBC 4.92 X10*6/uL (4.60-5.80) 10/14/20 05:20 Hgb 14.5 g/dl (14.0-18.0) 10/14/20 05:20 Hct 41.1 % (42-52) L 10/14/20 05:20 MCV 83.5 fL (80-98) 10/14/20 05:20 MCH 29.5 pg (27.0-33.0) 10/14/20 05:20 MCHC 35.3 g/dl (31.0-36.0) 10/14/20 05:20 RDW 12.1 % (11.0-16.0) 10/14/20 05:20 Plt Count 182 X10*3/uL (160-400) 10/14/20 05:20 MPV 10.8 fL (9.4-12.4) 10/14/20 05:20 Immature Gran % (Auto) 0.3 % (0.0-0.4) 10/12/20 22:38 Neut % (Auto) 77.8 % (45-73) H 10/12/20 22:38 Lymph % (Auto) 14.3 % (20-40) L 10/12/20 22:38 Hawkins % (Auto) 7.1 % (2-11) 10/12/20 22:38 Eos % (Auto) 0.3 % (0-4) 10/12/20 22:38 Baso % (Auto) 0.2 % (0-2) 10/12/20 22:38 Lymph # (Auto) 1.8 X10*3/uL (1.2-4.9) 10/12/20 22:38 Hawkins # (Auto) 0.9 X10*3/uL (0.1-1.2) 10/12/20 22:38 Eos # (Auto) 0.0 X10*3/uL (0.0-0.4) 10/12/20 22:38 Baso # (Auto) 0.0 X10*3/uL (0.0-0.2) 10/12/20 22:38 Abs Immat Gran (auto) 0.04 X10*3/uL (0.00-0.03) H 10/12/20 22:38 Absolute Neuts (auto) 9.8 X10*3/uL (2.0-8.3) H 10/12/20 22:38 Absolute Nucleated RBC 0.000 X10*3/uL (0.0-0.012) 10/14/20 05:20 Nucleated RBC % (auto) 0.0 /100WBC (0.0-0.2) 10/14/20 05:20 PT 13.0 SEC (10.8-13.0) 10/12/20 22:38 INR 1.1 (0.9-1.1) 10/12/20 22:38 APTT 32.9 SEC (24.1-38.0) 10/12/20 22:38 Sodium 142 mmol/L (135-145) 10/17/20 07:11 Potassium 3.8 mmol/l (3.3-5.1) 10/17/20 07:11 Chloride 108 mmol/L (96-108) 10/17/20 07:11 Carbon Dioxide 25 mmol/L (22-29) 10/17/20 07:11 Anion Gap 13 (12-20) 10/17/20 07:11 BUN 14 mg/dL (9-16) 10/17/20 07:11 Creatinine 0.90 mg/dL (0.5-1.4) 10/17/20 07:11 Estim Creat Clear Calc 115.5 10/17/20 07:11 Estimated GFR > 60 10/17/20 07:11 Random Glucose 101 mg/dL (60-115) 10/17/20 07:11 Lactic Acid 0.7 mmol/L (0.5-2.0) 10/13/20 01:11 Calcium 9.0 mg/dL (8.4-10.2) 10/17/20 07:11 Vancomycin Trough 10.3 mcg/mL (10.0-20.0) 10/16/20 04:46 COVID-19 (MARQUIS) Negative (Negative) 10/13/20 03:40 COVID-19 Clin Com See Note 10/13/20 03:40 Preliminary micro results at discharge 10/14/20 Unknown Anaerobic Culture - Preliminary Bone Culture in progress. 10/13/20 01:11 Blood Culture - Preliminary Blood - Venous No growth after 48 hours. 10/13/20 01:11 Blood Culture - Preliminary Blood - Venous No growth after 48 hours. Discharge Plan Discharge Patient Disposition: Home, Self-Care Referrals: Luz Spain MD [Physician] - 10/20/20 (call office to schedule follow up) Kayce Colon MD [Physician] - 10/20/20 (call office to schedule follow up) Physician,Unknown [Primary Care Provider] - Name,MD Greg [Physician] - Discharge Medications: New levofloxacin 750 mg Tablet 750 mg PO Q24H Qty: 41 RF: 0 Discharge Orders: Discharge Order (Routine); Ordered 10/17/20 Ordered By: Luisito Olivares Diet: advance to usual diet Activity on Discharge: As tolerated Visit Report Forms: Patient Portal Discharge page Care Plan Goals: To stay healthy and out of the hospital. Health Concerns: Bone Infection Plan of Treatment: Take Levaquin (Levofloxacin for 41 more days). Call to follow up Dr. Spain (ID) next week Call to follow up Dr. Shi (Ortho) next week
--- NOTE | 2020-10-17 15:41 | MHC.CM.PN ---
NURSE PHYSICS TEACHER NOTE ELECTRONIC MEDICAL RECORD REVIEWED ALONG WITH CASE DISCUSSED WITH STAFF NURSE, PATIENT WILL BE DISCHARGED HOME TODAY NO SERVICES , SHE WILL HAVE A NEW SCRIPT TO FILL FOR LEVOFLOXACIN DISCHARGED HOME NO SERVICES TRANSPORTATION PATIENT TO SELF ARRANGE PCP PATIENT TO CALL FOR POST HOSPITAL DISCHARGE FOLLOW UP
== END 2020-10-17 16:15 | disposition home or self-care (01) | DRG 711 ==
LOC: HO.ED 10-13 04:08 → HO.IMC 10-13 07:01 → HO.S3 10-14 18:59
PROVIDERS: Orthopaedic Surgery; Physician Assistant; Student in an Organized Health Care Education/Training Program; Admitting Provider Hospitalist; Emergency Provider Emergency Medicine; Visit Provider Family Medicine
PROC: 0J9K0ZZ Drainage of Left Hand Subcutaneous Tissue and Fascia, Open Approach (ICD-10-PCS; principal; 2020-10-14 15:00)
DX: T85.79XA Infection and inflammatory reaction due to other internal prosthetic devices, implants and grafts, initial encounter (principal); F11.20 Opioid dependence, uncomplicated; M86.9 Osteomyelitis, unspecified; S62.621 Displaced fracture of middle phalanx of left index finger; X58.XXXD Exposure to other specified factors, subsequent encounter; B96.20 Unspecified Escherichia coli [E. coli] as the cause of diseases classified elsewhere; F17.210 Nicotine dependence, cigarettes, uncomplicated; L03.012 Cellulitis of left finger; Z20.828 Contact with and (suspected) exposure to other viral communicable diseases; Z71.6 Tobacco abuse counseling
CPT/HCPCS: 36415; 73140; 73201; 80048; 80202; 83605; 85025; 85027; 85610; 85730; 87040; 87071; 87073; 87077; 87186; 87205; 87635; 96365; 96367; 99284; 99285; J1650; J2250; J2543; J3010; J3370; Q9967

== ENCOUNTER 2020-10-20 12:31 | Outpatient (REF) | payer SELFPAY ==
--- NOTE | 2020-10-20 12:50 | XR_ITS ---
EXAMINATION: XR HAND, LEFT CLINICAL INFORMATION: Trauma, followup. COMPARISON: Radiographs left hand 10/12/2020 TECHNIQUE: PA, lateral, and oblique views of the left hand. FINDINGS: When compared with prior study 10/12/2020, the orthopedic pin fixation hardware has been removed. Fracture fragments mid phalanx index finger in near-anatomic alignment. There is callus formation although the fracture line is still clearly visible. Again, there is osteolysis involving distal phalangeal tuft of the index finger and degenerative changes DIP joint. Old post-traumatic changes again seen distal radius and prior amputation 3rd finger at level neck proximal phalanx again seen. There is widening neck 4th finger proximal phalanx perhaps related to old injury or benign cortical lesion, stable. XR/XR hand LT min 3V IMPRESSION: 1. Hardware removed index finger. Some interval callus formation. Fracture line still visible. 2. Osteolysis distal phalangeal tuft index finger, similar to prior study.
== END 2020-10-20 12:32 | disposition home or self-care (01) ==
LOC: HO.HOSX 12:31
PROVIDERS: Visit Provider Orthopaedic Surgery
DX: S62.621 Displaced fracture of middle phalanx of left index finger (principal); M86.9 Osteomyelitis, unspecified
CPT/HCPCS: 73130; 99212

== ENCOUNTER → 2020-10-27 12:23 | Outpatient (BNVA) | payer OTHER, SELFPAY | PROVIDERS: Visit Provider Orthopaedic Surgery | DX: Z48.817 Encounter for surgical aftercare following surgery on the skin and subcutaneous tissue (principal); M86.9 Osteomyelitis, unspecified; L03.90 Cellulitis, unspecified; S62.621 Displaced fracture of middle phalanx of left index finger | CPT/HCPCS: 99212 ==

== ENCOUNTER → 2020-11-17 11:21 | Outpatient (BNVA) | payer OTHER, SELFPAY | PROVIDERS: Visit Provider Internal Medicine | DX: M86.9 Osteomyelitis, unspecified (principal) | CPT/HCPCS: 99212 ==

== ENCOUNTER → 2020-11-24 09:09 | Outpatient (BNVA) | payer OTHER, SELFPAY | PROVIDERS: Visit Provider Orthopaedic Surgery | DX: M86.9 Osteomyelitis, unspecified (principal); S62.621 Displaced fracture of middle phalanx of left index finger | CPT/HCPCS: 99212 ==

== ENCOUNTER 2021-01-01 11:08 | Outpatient (REF) | payer OTHER, SELFPAY ==
--- NOTE | ~2021-01-01 | XR_ITS ---
EXAMINATION: XR HAND, LEFT CLINICAL INFORMATION: M79.642 - Pain in left hand COMPARISON: Radiographs left hand 10/20/2020 and left index finger 10/12/2020. TECHNIQUE: PA, lateral, and oblique views of the left hand. FINDINGS: There is some interval osseous bridging of the fracture middle phalanx index finger since prior exam 10/20/2020. Fracture line is still faintly seen on the lateral view. There is prior fixation pin track along the long axis of the index finger. Other findings as previously described are stable. There is no acute fracture, dislocation, or destructive process. XR/XR hand LT min 3V IMPRESSION: Healing fracture middle phalanx index finger.
== END 2021-01-01 11:09 | disposition home or self-care (01) ==
LOC: HO.HOSX 11:08
PROVIDERS: Visit Provider Orthopaedic Surgery
DX: M86.9 Osteomyelitis, unspecified (principal); S62.621 Displaced fracture of middle phalanx of left index finger; M79.642 Pain in left hand; F17.210 Nicotine dependence, cigarettes, uncomplicated
CPT/HCPCS: 73130; 99212

== ENCOUNTER 2021-01-11 18:42 | Emergency (ER) | payer OTHER, SELFPAY ==
[2021-01-11 20:10] VITALS: BP 178/96; PULSE 85; RESP 16; TEMP 37.1; O2SAT 99; BMI 35.4
--- NOTE | 2021-01-11 22:38 | ED.EYEPROB ---
HPI - Eye Problem General Chief complaint: Eye Problems Stated complaint: ?Fb in eye and ear Time Seen by Provider: 01/11/21 22:24 Source: patient Mode of arrival: ambulatory Limitations: no limitations History of Present Illness HPI Narrative: 50-year-old male with past medical history of tubular adenoma of colon, and active heroin addiction presents with suspected foreign body to his left eye since Monday and bilateral ear pain. He reports using heroin just prior to arrival, reports that his eye is in 10/10 pain and that he sees little spots to the left eye. He states that the heroin has been helping him with pain. Does not know when his last Tdap vaccine was updated. He was not wearing eye protection while working under his car. He denies fevers, chills, chest pain or pressure, palpitations, shortness of breath, abdominal pain, abdominal distention, dysuria, hematuria, and any other concerning symptoms. 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 hammering/grinding Severity: severe Severity scale (1-10): 10 If Pain, Quality: burning Associated symptoms: other (Bilateral ear pain) Treatments Prior to Arrival: irrigated eye Related Data Patient tetanus UTD: No Previous Rx's Medication Instructions Recorded levofloxacin 750 mg PO Q24H #41 tab 10/17/20 amoxicillin-pot clavulanate 1 tab PO Q12H 10 Days #20 tab 01/11/21 [Augmentin] erythromycin 0.5 inch OPHTHALMIC (EYE) Q4H 7 01/11/21 Days #1 g Allergies Allergy/AdvReac Type Severity Reaction Status Date / Time No Known Allergies Allergy Verified 01/01/21 11:43 [No Known Allergies*] none Allergy Unknown Unknown Uncoded 10/12/20 21:14 Review of Systems Review of Systems: Constitutional: Positive headache, No Fever, No Chills ENT/Mouth: Positive bilateral ear pain, No sore throat, No Rhinorrhea Eyes: Positive left Eye Pain, No Swelling, positive Redness Cardiovascular: No Chest Pain, No SOB Respiratory: No Cough, No Sputum Gastrointestinal: No Nausea, No Vomiting, No Diarrhea, No abdominal Pain Genitourinary: No Dysuria, No Hematuria Musculoskeletal: No joint pain, No Myalgias, No Joint Swelling Skin: No Skin Lesions, No rash Neuro: No Weakness, No Numbness, No Loss of Consciousness, No Dizziness, No Headache Psych: Positive substance abuse, No Anxiety, No Depression, No SI/HI/AH/VH Heme/Lymph: No Bruising, No Bleeding,No Lymphadenopathy Endocrine: No Polyuria, No Polydipsia Yes all other systems are reviewed and are negative [facility] Past Medical History Attestation statement: The following information was validated with the patient. Source: old records reviewed Medical History (Updated 01/11/21 @ 23:46 by Lucille Calvo NP) Patient denies significant medical history Surgical History History of colonoscopy Family History Family History Father History of cancer Mother History of high blood pressure Social History Social History Household Members: Family Housing: House Alcohol intake: unknown Smoking Status: Unknown if ever smoked Tobacco Type: Cigarette Packs Per Day: 0.5 Cigarettes Per Day: 10.0 Use of substances other than those prescribed or required for medical reasons: Yes Substance Use Type: Heroin Substance Use Frequency: Daily Last Used Substance: Hours (ago) Advance Directives: No Advance Directives Information Provided: Yes service: No Current occupational status: employed Physical Exam Vital Signs: Vital Signs: Last Vital Signs Temp 98.1 F 01/12/21 00:00 Pulse 92 01/12/21 00:00 Resp 17 01/12/21 00:00 BP 148/83 H 01/12/21 00:00 Pulse Ox 96 01/12/21 00:00 Body Mass Index 35.4 Appearance: Alert. Oriented X3. Moderate distress. Eyes: Pupils equal, round and reactive to light. EOMI, visible foreign body to the left conjunctiva, positive fluorescein uptake ENT: Pharynx normal. Bilateral otitis media, tympanic membranes are bulging and supportive without perforation Neck: Normal inspection. Neck supple. No cervical lymphadenopathy noted CVS: Normal heart rate and rhythm. Pulses normal. Respiratory: No respiratory distress. Breath sounds normal. Abdomen: Soft and nontender. Skin: Skin warm and dry. Normal skin color. Normal skin turgor. Extremities: No lower extremity edema. Neuro: No motor deficit. No sensory deficit. Course Course Course Narrative: 50-year-old male presents for left eye foreign body and bilateral earache. Exam indicates bulging tympanic membranes, supportive without perforation. Will treat with Augmentin Left eye positive for corneal abrasion, multiple fragments of metal removed from his eye, small metal maame to the cornea with abrasion unable to be removed. We updated Tdap, and referred to Ophthalmology. Detailed discussion with patient regarding importance of following up with ophthalmology tomorrow. He does decline detox and recovery rn assistance at this time. Patient verbalized understanding of and agrees plan of care discharge home. quality lab technician utilized for all correspondence, Google translate utilized for discharge instructions. Procedures FB Removal Eye Location: eye (L) Topical anesthetic used: tetracaine Foreign body: metal Evidence of corneal penetration: No Technique: irrigation, cotton tip swab and needle Procedure performed under: direct visualization with magnification Post-procedure medication: ophthalmic antibiotic and topical anesthetic Patient tolerated procedure: well and no complications Complications: incomplete foreign body removal and residual rust ring MDM - Eye Problem MDM Narrative Medical decision making narrative: Otitis media, eustachian tube dysfunction, otitis externa Differential Diagnosis Differential diagnosis: Likely corneal abrasion, conjunctivitis, acute iritis, hyphema and corneal ulcer Medical Records Attestation: I reviewed the patient's medical records. Lab Data Attestation: I reviewed the patient's lab results. Discharge Plan Discharge Clinical Impression: Corneal abrasion Qualifiers: Encounter type: initial encounter Laterality: left Qualified Code(s): S05.02XA - Injury of conjunctiva and corneal abrasion without foreign body, left eye, initial encounter Acute foreign body of left cornea Qualifiers: Encounter type: initial encounter Qualified Code(s): T15.02XA - Foreign body in cornea, left eye, initial encounter Otitis media Qualifiers: Otitis media type: suppurative Chronicity: acute Laterality: bilateral Recurrence: non-recurrent Spontaneous tympanic membrane rupture: without spontaneous rupture Qualified Code(s): H66.003 - Acute suppurative otitis media without spontaneous rupture of ear drum, bilateral Patient Disposition: Home, Self-Care Instructions: Corneal Abrasion (ED), Ear Infection (ED), Eye Foreign Body (ED) Additional Instructions: Te evaluaron por metal en el natalie. Quit? varios trozos de metal, sin embargo todav?a te queda yoshi pieza en la c?rnea. Debes hacer un seguimiento con Oftalmolog?aIvnoe De León por la ma?nyasia para yoshi imelda. Use carola?ento ocular de eritromicina cada 4 horas mientras est? despierto. L?vese las mynro antes y despu?s de aplicar el carola?ento ocular. Te estamos tratando para otitis media, que es yoshi infecci?n del o?do. Por favor, tome Augmentin patricia se indica. Complete todo el curso de jonathon medicamento. Por favor, considere la desintoxicaci?n para la adicci?n a la hero?na. Nestor por elegir jonathon departamento de emergencias para [place] evaluaci?n. Por favor, kamlesh un seguimiento con el m?dico de atenci?n primaria seg?n sea necesario. Regrese al servicio de emergencias para cualquier s?ntoma nuevo, preocupante o que empeore. You were evaluated for metal in your eye. I removed several pieces of metal, however you still have a piece left on your cornea. You must follow-up with Ophthalmology. Please call Dr. De León in the morning for an appointment. Use erythromycin eye ointment every 4 hours while awake. Wash your hands before and after applying the eye ointment. We are treating you for otitis media, which is an ear infection. Please take Augmentin as directed. Complete the entire course of this medication. Please consider detox for heroin addiction. Thank you for choosing this emergency department for evaluation. Please follow-up with primary care physician as needed. Return to the emergency department for any new, concerning, or worsening symptoms. Prescriptions: New amoxicillin-pot clavulanate [Augmentin] 875-125 mg tablet 1 tab PO Q12H 10 Days Qty: 20 RF: 0 erythromycin 5 mg/gram (0.5 %) ointment 0.5 inch ophthalmic (eye) Q4H 7 Days Qty: 1 RF: 0 No Action levofloxacin 750 mg Tablet 750 mg PO Q24H Qty: 41 RF: 0 Referrals: Vikash De León [Physician] - 2 days (Corneal abrasion with foreign body) Interventions: ED Discharge Assessment Last Done: 01/12/21 00:25 Discharge Date/Time: 01/12/21 00:27
[2021-01-11] MEDS: Fluorescein Sodium STRIP 1 STRIP EYE-LEFT (22:53)
[2021-01-11] MEDS: Eye Irrigation Solution 118 ML IRRIG.SOLN 1 APPL EYE-LEFT (22:53)
[2021-01-11] MEDS: Diphth,Pertus(ACell),Tet Adult 0.5 ML SYRINGE IM (22:54)
[2021-01-11] MEDS: Erythromycin Base 0.5% Oph Oin 1 GM TUBE 1 CM EYE-LEFT (22:54)
[2021-01-11] MEDS: Tetracaine HCl/PF 0.5% Oph Sol 4 ML DROPS 3 DROP EYE-LEFT (22:54)
[2021-01-12] VITALS: BP 148/83; PULSE 92; RESP 17; TEMP 36.7; O2SAT 96
[2021-01-12] MEDS: Amoxicillin/Potassium Clav 875 MG TABLET PO (00:06)
== END 2021-01-12 00:27 | disposition home or self-care (01) ==
PROVIDERS: Emergency Provider Emergency Medicine Emergency Medical Services
DX: H66.003 Acute suppurative otitis media without spontaneous rupture of ear drum, bilateral (principal); T15.02XA Foreign body in cornea, left eye, initial encounter; X58.XXXA Exposure to other specified factors, initial encounter; F11.10 Opioid abuse, uncomplicated; Y93.89 Activity, other specified; Y92.015 Private garage of single-family (private) house as the place of occurrence of the external cause; Y99.9 Unspecified external cause status
CPT/HCPCS: 65220; 90471; 90715; 99284

== ENCOUNTER 2021-01-25 21:37 | Emergency (ER) | payer OTHER, SELFPAY ==
--- NOTE | ~2021-01-25 | XR_ITS ---
EXAMINATION: XR CHEST CLINICAL INFORMATION: Chest pain COMPARISON: 11/11/2019 chest radiograph and 09/03/2019 CT abdomen pelvis TECHNIQUE: Frontal view of the chest was obtained. FINDINGS: No significant abnormality is noted involving the heart, lungs, mediastinum, bony thorax or soft tissues. 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
--- NOTE | 2021-01-25 21:40 | ECG_ITS ---
Test Reason : CHEST PAIN Blood Pressure : / mmHG Vent. Rate : 107 BPM Atrial Rate : 107 BPM P-R Int : 158 ms QRS Dur : 102 ms QT Int : 354 ms P-R-T Axes : 039 -04 037 degrees QTc Int : 472 ms Sinus tachycardia Incomplete right bundle branch block Minimal voltage criteria for LVH, may be normal variant Borderline ECG When compared with ECG of 19-DEC-2019 21:54, No significant change was found Referred By: Generic ED Physician Electronically Signed By:CRIS ROBLERO
[2021-01-25 22:30] VITALS: BP 144/95; PULSE 110; RESP 18; TEMP 36.8; O2SAT 95; BMI 35.4
[2021-01-25 22:36] LABS: MANUAL DIFF FLAG NO
[2021-01-25 22:37] LABS: Basophils Percent Auto 0.1 % (0-2); Eosinophils Percent Auto 0.1 % (0-4); Hematocrit 48.1 % (42-52); Hemoglobin 16.8 g/dl (14.0-18.0); Imm Gran Abs Auto 0.04 X10*3/uL (0.00-0.03); Imm Gran Pct Auto 0.3 % (0.0-0.4); Lymphocytes Absolute Auto 1.5 X10*3/uL (1.2-4.9); Lymphocytes Percent Auto 11.1 % (20-40); Mean Corpuscular HGB Conc 34.9 g/dl (31.0-36.0); Mean Corpuscular Hemoglobin 28.8 pg (27.0-33.0); Mean Corpuscular Volume 82.5 fL (80-98); Monocytes Absolute Auto 0.8 X10*3/uL (0.1-1.2); Monocytes Percent Auto 5.9 % (2-11); Neutrophils Absolute Auto 11.1 X10*3/uL (2.0-8.3); Neutrophils Percent Auto 82.5 % (45-73); Platelet Count 285 X10*3/uL (160-400); Red Blood Count 5.83 X10*6/uL (4.60-5.80); Red Cell Distribution Width 12.6 % (11.0-16.0); White Blood Count 13.5 X10*3/uL (4.8-10.8)
[2021-01-25 23:02] LABS: Anion Gap 17 (12-20); Blood Urea Nitrogen 22 mg/dL (9-16); Calcium 9.9 mg/dL (8.4-10.2); Carbon Dioxide 27 mmol/L (22-29); Chloride 103 mmol/L (96-108); Creatinine Clr Calc Pharmacy 81.1; Estimated Glomerular Filt Rate 58; Glucose Random 122 mg/dL (60-115); Potassium 4.7 mmol/L (3.3-5.1); Sodium 142 mmol/L (135-145)
[2021-01-25 23:08] LABS: Troponin-I High Sensitivity 27.1 ng/L (<3.5-35.0)
[2021-01-25 23:48] VITALS: BP 153/107; PULSE 102; RESP 18; TEMP 36.9; O2SAT 98
--- NOTE | 2021-01-26 00:30 | PC.NURSE ---
Attempted to call patient into room, pt not in waiting room
--- NOTE | 2021-01-26 00:46 | PC.NURSE ---
Attempted to call patient into room, no answer in waiting room
== END 2021-01-26 00:50 | disposition left against medical advice (07) ==
LOC: HO.ED 01-26 00:49
PROVIDERS: Emergency Provider Emergency Medicine
DX: R07.9 Chest pain, unspecified (principal)
CPT/HCPCS: 36415; 71045; 80048; 84484; 85025; 93005; 99283

== ENCOUNTER 2021-03-26 20:53 | Emergency (ER) | payer OTHER, SELFPAY ==
--- NOTE | ~2021-03-26 | XR_ITS ---
EXAMINATION: XR FOREARM, LEFT CLINICAL INFORMATION: Abscess with question of foreign body COMPARISON: None TECHNIQUE: AP and lateral views of the left forearm were obtained. FINDINGS: There is what appears to be a 1.3 cm needle fragment present ventral surface of the mid left forearm. Soft tissue swelling is present. No bony abnormality is seen. There is evidence of an old healed fracture involving the distal radius with degenerative changes at the wrist. XR/XR forearm LT 2V IMPRESSION: Needle fragment present in the forearm as described above.
[2021-03-26 22:36] VITALS: BP 130/97; PULSE 66; RESP 18; TEMP 36.5; O2SAT 100; BMI 34.0
--- NOTE | 2021-03-26 23:24 | ED_ITS ---
HPI - Skin/Abscess/Foreign Bdy General Chief complaint: Skin/Abscess/Foreign Body Stated complaint: abcess Source: patient Mode of arrival: ambulatory Limitations: language barrier History of Present Illness HPI narrative: 50-year-old male with history of IVDA heroin abuse presents with abscess to the left forearm. States that he injected earlier and he thinks that a needle might have broken off. He does not report any fevers or chills, chest pain or pressure, palpitations, shortness breath, abdominal pain, abdominal distention, dysuria, hematuria, or any other concerning symptoms. MD complaint: abscess/boil and foreign body Onset (ago): day(s) (Several) Tetanus up to date: no Location: LUE Severity: moderate Severity scale (1-10): 6 Quality: aching Pain Consistency: constant Relieving factors: none Exacerbating factors: palpation and movement Context: IVDA Associated symptoms: denies other symptoms Treatments prior to arrival: none Related Data Previous Rx's Medication Instructions Recorded levofloxacin 750 mg PO Q24H #41 tab 10/17/20 amoxicillin-pot clavulanate 1 tab PO Q12H 10 Days #20 tab 01/11/21 [Augmentin] erythromycin 0.5 inch OPHTHALMIC (EYE) Q4H 7 01/11/21 Days #1 g amoxicillin-pot clavulanate 1 tab PO Q12H 10 Days #20 tab 03/26/21 [Augmentin] Allergies Allergy/AdvReac Type Severity Reaction Status Date / Time No Known Allergies Allergy Verified 03/26/21 22:36 [No Known Allergies*] none Allergy Unknown Unknown Uncoded 10/12/20 21:14 Review of Systems Review of Systems: Constitutional: No Fever, No Chills ENT/Mouth: No Ear Pain, No Hoarseness, No sore throat Eyes: No Eye Pain, No Swelling, No Redness, No Foreign Body Cardiovascular: No Chest Pain, No SOB Respiratory: No Cough, No Dyspnea Gastrointestinal: No Nausea, No Vomiting, No Diarrhea, No abdominal Pain Genitourinary: No Dysuria, No Hematuria Musculoskeletal: positive left forearm pain and swelling, No Myalgias, No Joint Swelling Skin: Positive abscess to left forearm, No Skin lacerations, No rash Neuro: No Weakness, No Numbness, No Paresthesias, No Loss of Consciousness, No Dizziness, No Headache Psych: No Anxiety/Panic, No Depression Heme/Lymph: no easy bruising, no Lymphadenopathy Endocrine: No Polyuria, No Polydipsia Yes all other systems are reviewed and are negative [facility] Past Medical History Attestation statement: The following information was validated with the patient. Source: old records reviewed Medical History (Updated 03/26/21 @ 23:51 by Lucille Calvo NP) Patient denies significant medical history Surgical History History of colonoscopy Family History Family History Father History of cancer Mother History of high blood pressure Social History Social History Household Members: Family Housing: House Alcohol intake: unknown Cigarette Packs Per Day: 0.5 Cigarettes Per Day: 10.0 Substance Use Type: Heroin Advance Directives: No service: No Current occupational status: employed Physical Exam Vital Signs: Vital Signs: Last Vital Signs Temp 97.7 F 03/26/21 22:36 Pulse 66 03/26/21 22:36 Resp 18 03/26/21 22:36 BP 130/97 H 03/26/21 22:36 Pulse Ox 100 03/26/21 22:36 Body Mass Index 34.0 Appearance: Alert. Oriented X3. No acute distress. Eyes: Pupils equal, round and reactive to light. ENT: Pharynx normal. Neck: Normal inspection. Neck supple. CVS: Normal heart rate and rhythm. Pulses normal. Respiratory: No respiratory distress. Breath sounds normal. Abdomen: Soft and nontender. Skin: Skin warm and dry. Normal skin color. Normal skin turgor. Extremities: Positive swelling and erythema to the left dorsal aspect of the forearm. Open indurated area. Full range of motion to the extremity, strength 5/5, equal pulses and brisk capillary refill. Neuro: No motor deficit. No sensory deficit. Course Course Course Narrative: 50-year-old male presents with abscess to left forearm after injecting heroin. Does not know how long the swelling has been on his forearm however he does think that he may have broken a needle off in his arm. Wound cleaned, irrigated and dressed with topical antibiotic ointment and Cachorro. X-rays positive for foreign body, will refer to surgery as an outpatient and start Augmentin twice a day. Detailed discussion with patient regarding need for follow-up with surgery as well as taking antibiotics. Patient is not interested in detox at this time. Tdap vaccine updated today. Patient verbalized understanding of and agrees to plan of care discharge home. MDM - Skin/Abscess/Foreign Bdy MDM Narrative Medical decision making narrative: Foreign body Differential Diagnosis Differential diagnosis: Likely abscess of skin or subcutaneous tissue Medical Records Attestation: I reviewed the patient's medical records. Lab Data Attestation: I reviewed the patient's lab results. Imaging Data Left forearm x-ray: Attestation: I personally reviewed and interpreted this imaging study as follows: Radiologist's impression: TECHNIQUE: AP and lateral views of the left forearm were obtained. FINDINGS: There is what appears to be a 1.3 cm needle fragment present ventral surface of the mid left forearm. Soft tissue swelling is present. No bony abnormality is seen. There is evidence of an old healed fracture involving the distal radius with degenerative changes at the wrist. XR/XR forearm LT 2V IMPRESSION: Needle fragment present in the forearm as described above. Discharge Plan Discharge Clinical Impression: Heroin use, Foreign body (FB) in soft tissue Abscess of skin or subcutaneous tissue Qualifiers: Site of cutaneous abscess: extremity Site of cutaneous abscess of extremity: upper extremity Laterality: left Qualified Code(s): L02.414 - Cutaneous abscess of left upper limb Patient Disposition: Home, Self-Care Instructions: Soft Tissue Foreign Body (ED) Additional Instructions: Fue evaluado por inflamaci?n del brazo harish. Las radiograf?as muestran yoshi aguja alojada en el antebrazo harish. Debe hacer un seguimiento con un cirujano. Te recomend? al Dr. Montes De Oca?nae. [place] Augmentin dos veces al d?a. Jonathon medicamento es un antibi?savanna y se usa para ayudar a las infecciones. Debe ger jonathon medicamento. Tiene riesgo de sepsis. La sepsis es yoshi infecci?n de la ema. Si tiene fiebre, escalofr?os, diaforesis o cualquier enfermedad que no se sienta patricia s?ntomas de abstinencia, regrese al departamento de emergencias de inmediato para yoshi evaluaci?n. Nestor por elegir jonathon departamento de emergencias para [place] evaluaci?n. Candice un seguimiento con [place] m?dico de atenci?n primaria seg?n sea necesario. Regrese al departamento de emergencias por cualquier s?ntoma nuevo, preocupante o que empeore. Divine esta declaraci?n al Dr. Montes De Oca?nae. Me evaluaron en el departamento de emergencias por hinchaz?n en el antebrazo harish. La radiograf?a muestra yoshi aguja rota. El departamento de emergencias no pudo obtener la aguja y necesito yoshi consulta quir?rgica para retirar la aguja. El departamento de emergencias me recet? Augmentin 875 mg que he estado tomando dos veces al d?a. El departamento de emergencias actualiz? mi vacuna contra el t?tanos mientras estuve all?. You were evaluated for left arm swelling. X-rays show a needle lodged in the left forearm. You must follow-up with a surgeon. I referred you to Dr. Gunn. Please take Augmentin twice a day. This medication is an antibiotic and is used to help infections. You must take this medication. You are at risk for sepsis. Sepsis is a blood infection. If you develop fevers, chills, diaphoresis, or any illness that does not feel like withdrawal symptoms please return to the emergency department immediately for evaluation. Thank you for choosing this emergency department for evaluation. Please follow-up with primary care physician as needed. Return to the emergency department for any new, concerning, or worsening symptoms. Please read this statement to Dr. Gunn. I was evaluated in the emergency department for swelling to the left forearm. The x-ray shows a broken needle. The emergency department was unable to obtain the needle and I need a surgical consult to remove the needle. The emergency department prescribed me Augmentin 875 mg which I have been taking twice a day. The emergency department updated my tetanus vaccine while I was there. Prescriptions: New amoxicillin-pot clavulanate [Augmentin] 875-125 mg tablet 1 tab PO Q12H 10 Days Qty: 20 RF: 0 No Action levofloxacin 750 mg Tablet 750 mg PO Q24H Qty: 41 RF: 0 amoxicillin-pot clavulanate [Augmentin] 875-125 mg tablet 1 tab PO Q12H 10 Days Qty: 20 RF: 0 erythromycin 5 mg/gram (0.5 %) ointment 0.5 inch ophthalmic (eye) Q4H 7 Days Qty: 1 RF: 0 Referrals: Kashif Gunn MD [Physician] - 2 days (Broken needle in left forearm) Interventions: ED Discharge Assessment Last Done: 03/27/21 00:16 Discharge Date/Time: 03/27/21 00:17
[2021-03-27] MEDS: Amoxicillin/Potassium Clav 875 MG TABLET PO (00:06)
[2021-03-27] MEDS: Diphth,Pertus(ACell),Tet Adult 0.5 ML SYRINGE IM (00:06)
== END 2021-03-27 00:17 | disposition home or self-care (01) ==
PROVIDERS: Emergency Provider Emergency Medicine Emergency Medical Services
DX: L02.414 Cutaneous abscess of left upper limb (principal); M79.5 Residual foreign body in soft tissue; F11.10 Opioid abuse, uncomplicated
CPT/HCPCS: 73090; 90471; 90715; 99282; 99284

== ENCOUNTER → 2021-04-01 10:42 | Outpatient (BNVA) | payer OTHER, SELFPAY | PROVIDERS: Visit Provider Surgery | DX: M79.5 Residual foreign body in soft tissue (principal) | CPT/HCPCS: 99202 ==

== ENCOUNTER 2021-04-09 14:13 | Outpatient (REF) | payer OTHER, SELFPAY ==
--- NOTE | ~2021-04-09 | US_ITS ---
EXAMINATION: ULTRASOUND EXTREMITY NONVASCULAR CLINICAL INFORMATION: Rule out foreign body COMPARISON: Previous x-ray 09/04/2020 TECHNIQUE: Grayscale and color imaging of the left forearm is a severe FINDINGS: There is a linear echogenic density in the soft tissues along the radial side that measures 1.1 x 0.1 x 0.1 cm in longitudinal AP and transverse dimension. This likely corresponds to the foreign body on x-ray 03/26/2021 compatible with a broken needle. This is 0.9 cm deep from the skin surface. This area could be marked preoperatively if that would be helpful. US/US extremity nonvascular vickers IMPRESSION: Soft tissue foreign body in the left forearm.
== END 2021-04-09 14:14 | disposition home or self-care (01) ==
LOC: HO.HMGCX 14:13
PROVIDERS: Visit Provider Surgery
DX: M79.5 Residual foreign body in soft tissue (principal)
CPT/HCPCS: 76882

== ENCOUNTER → 2021-04-22 10:34 | Outpatient (BNVA) | payer OTHER, SELFPAY | PROVIDERS: Visit Provider Surgery | DX: M79.5 Residual foreign body in soft tissue (principal); F19.20 Other psychoactive substance dependence, uncomplicated | CPT/HCPCS: 99212 ==

== ENCOUNTER 2021-06-22 19:21 | Emergency (ER) | payer MEDICAID, SELFPAY ==
[2021-06-22 19:26] VITALS: BP 131/84; PULSE 84; RESP 18; TEMP 36.7; O2SAT 96; BMI 35.4
[2021-06-22 21:01] LABS: MANUAL DIFF FLAG NO
[2021-06-22 21:02] LABS: Basophils Percent Auto 0.1 % (0-2); Eosinophils Percent Auto 0.3 % (0-4); Hemoglobin 13.8 g/dl (14.0-18.0); Imm Gran Abs Auto 0.04 X10*3/uL (0.00-0.03); Imm Gran Pct Auto 0.4 % (0.0-0.4); Lymphocytes Percent Auto 9.5 % (20-40); Mean Corpuscular HGB Conc 34.5 g/dl (31.0-36.0); Mean Corpuscular Hemoglobin 28.7 pg (27.0-33.0); Mean Corpuscular Volume 83.2 fL (80-98); Mean Platelet Volume 10.7 fL (9.4-12.4); Monocytes Absolute Auto 0.7 X10*3/uL (0.1-1.2); Monocytes Percent Auto 6.7 % (2-11); Platelet Count 194 X10*3/uL (160-400); Red Blood Count 4.81 X10*6/uL (4.60-5.80); Red Cell Distribution Width 12.8 % (11.0-16.0); White Blood Count 10.8 X10*3/uL (4.8-10.8)
[2021-06-22] MEDS: Lidocaine HCl 2 % MPF 5 ML VIAL SUBCUT (21:38)
--- NOTE | 2021-06-22 21:39 | PC.NURSE ---
CARDIOTHORACIC ANESTHESIA TECHNICIAN at bedside to angie abscess.
--- NOTE | 2021-06-22 22:12 | ED.GENADULT ---
HPI - General Adult General Chief complaint: Skin/Abscess/Foreign Body Stated complaint: Abscess Time Seen by Provider: 06/22/21 21:20 Source: patient Mode of arrival: ambulatory Limitations: no limitations History of Present Illness HPI narrative: 51-year-old male with a past medical history of IV drug abuse here with abscess to the right forearm for several days. No fevers or chills. Patient tells me he injects both heroin and cocaine daily. Related Data Previous Rx's Medication Instructions Recorded levofloxacin 750 mg tablet 750 mg PO Q24H #41 tab 10/17/20 amoxicillin 875 mg-potassium 1 tab PO Q12H 10 Days #20 tab 01/11/21 clavulanate 125 mg tablet (Augmentin) erythromycin 5 mg/gram (0.5 %) eye 0.5 inch OPHTHALMIC (EYE) Q4H 7 01/11/21 ointment Days #1 g amoxicillin 875 mg-potassium 1 tab PO Q12H 10 Days #20 tab 03/26/21 clavulanate 125 mg tablet (Augmentin) doxycycline monohydrate 100 mg 100 mg PO BID #20 tab 06/22/21 tablet Allergies Allergy/AdvReac Type Severity Reaction Status Date / Time No Known Allergies Allergy Verified 04/22/21 10:44 [No Known Allergies*] Review of Systems Review of Systems: Yes all other systems are reviewed and are negative Constitutional: Constitutional: Reports no additional constitutional complaints, Denies body ache(s), Denies chills, Denies fever(s), Denies headache(s) and Denies weakness Eyes: Eyes: Reports no additional eye complaints and Denies change in vision ENT: Reports system reviewed and no additional complaints, except as documented, Denies dizziness, Denies headache(s), Denies nasal congestion, Denies nasal discharge and Denies neck pain Cardiovascular: Cardiovascular: Reports no additional cardiovascular complaints, Denies chest pain, Denies leg edema and Denies dyspnea Respiratory: Respiratory: Reports no additional respiratory complaints, Denies cough and Denies dyspnea Gastrointestinal: Gastrointestinal: Reports no additional gastrointestinal complaints, Denies abdominal pain, Denies diarrhea, Denies nausea and Denies vomiting Genitourinary: Genitourinary: Denies urinary incontinence Musculoskeletal: Musculoskeletal: Reports no additional musculoskeletal complaints, Denies back pain, Denies arthralgias, Denies joint swelling, Denies neck pain, Denies numbness and Denies tingling Integumentary/Breasts: Skin/Breast: Reports system reviewed and no additional complaints, except as docu, Reports swelling, Reports erythema and Denies rash Neurologic: Reports system reviewed and no additional complaints, except as documented, Denies Abnormal speech present, Denies dizziness, Denies headache(s), Denies numbness, Denies tingling and Denies weakness PMFSH Past Medical History Attestation statement: The following information was validated with the patient. Source: old records reviewed and nursing notes reviewed Medical History Drug abuse and dependence Foreign body (FB) in soft tissue Patient denies significant medical history Surgical History History of colonoscopy Family History Family History Father History of cancer Mother History of high blood pressure Social History Social History Household Members: Family Housing: House Alcohol intake: never Patient Tobacco Use Status: Current everyday Tobacco user Cigarette Packs Per Day: 0.5 Cigarettes Per Day: 10.0 Substance Use Type: Heroin Advance Directives: No Advance Directives Information Provided: No service: No Current occupational status: employed Physical Exam Vital Signs: Vital Signs: Last Vital Signs Temp 98.0 F 06/22/21 19:26 Pulse 84 06/22/21 19:26 Resp 18 06/22/21 19:26 BP 131/84 06/22/21 19:26 Pulse Ox 96 06/22/21 19:26 Body Mass Index 35.4 Const: General: cooperative, healthy appearing, comfortable and no acute distress Orientation/consciousness: patient oriented x3 Limitations: no limitations HENMT: Head: Yes normal to inspection Ears: hearing grossly normal bilaterally General nose exam: Normal external nose present Face and sinus: Yes normal facial exam Mouth: Normal oral and palatal mucosa present Throat: Yes posterior oropharynx normal Eyes: General: appearance normal, both eyes and all related structures Pupils: Equal, round and reactive pupils present Neck: Neck: Yes normal visual inspection Chest: Chest palpation & inspection: normal inspection of the chest Resp: Effort & Inspection: normal respiratory effort Auscultation: clear to auscultation bilaterally Cardio: Rate: regular rate Rhythm: regular rhythm Peripheral pulses: Peripheral pulses 2+ throughout GI: Inspection: Yes normal to inspection Palpation (GI): Soft to palpation and nontender Auscultation: normal bowel sounds Back/Spine/Pelvis: Thoracic/Lumbar Spine: thoracic and lumbar spine normal to inspection Skin: General skin exam: no rashes or lesions noted Neuro: General: patient oriented x3, no focal motor deficits and normal sensation to monofilament Cranial nerves: Yes Equal, round and reactive pupils present Cognition (Neuro): normal cognition Speech: No Abnormal speech present Gait exam (Neuro): Normal gait present Motor exam (neuro): 5/5 motor strength present throughout Extrem: Other: To the dorsal aspect of the right forearm there is a large abscess with central fluctuance and tenderness and warmth. It is not circumferential. The patient has full range of motion of the elbow and the wrist. General: Yes normal to inspection Course Course Course Narrative: Large abscess to right forearm. See procedure note. Afebrile. Well-appearing. Discussed Suboxone/methadone with the patient. This time he is not interested. He did receive information on the [facility] and will follow-up as he desires to. Reviewed worrisome signs and symptoms of when to return to the emergency department. Comfortable discharge home. Procedures Abscess I/D Site: upper extremity Side (if applicable): right Local Anesthetic: lidocaine 2% Amount of anesthesia used (mL): 5 Technique: incised with blade Sent for culture/gram staining?: No Irrigation: No Packing used?: iodoform Medical Decision Making Lab Data Result diagrams: 06/22/21 20:50 Labs: Lab Results 06/22/21 Range/Units 20:50 WBC 10.8 (4.8-10.8) X10*3/uL RBC 4.81 (4.60-5.80) X10*6/uL Hgb 13.8 L (14.0-18.0) g/dl Hct 40.0 L (42-52) % MCV 83.2 (80-98) fL MCH 28.7 (27.0-33.0) pg MCHC 34.5 (31.0-36.0) g/dl RDW 12.8 (11.0-16.0) % Plt Count 194 D (160-400) X10*3/uL MPV 10.7 (9.4-12.4) fL Immature Gran % (Auto) 0.4 (0.0-0.4) % Neut % (Auto) 83.0 H (45-73) % Lymph % (Auto) 9.5 L (20-40) % [place] % (Auto) 6.7 (2-11) % Eos % (Auto) 0.3 (0-4) % Baso % (Auto) 0.1 (0-2) % Lymph # (Auto) 1.0 L (1.2-4.9) X10*3/uL [place] # (Auto) 0.7 (0.1-1.2) X10*3/uL Eos # (Auto) 0.0 (0.0-0.4) X10*3/uL Baso # (Auto) 0.0 (0.0-0.2) X10*3/uL Abs Immat Gran (auto) 0.04 H (0.00-0.03) X10*3/uL Absolute Neuts (auto) 9.0 H (2.0-8.3) X10*3/uL Absolute Nucleated RBC 0.000 (0.0-0.012) X10*3/uL Nucleated RBC % (auto) 0.0 (0.0-0.2) /100WBC Discharge Plan Discharge Clinical Impression: Abscess of skin or subcutaneous tissue Patient Disposition: Home, Self-Care Instructions: Abscess (ED) Additional Instructions: packing removal in 48 hrs Return for fever, worsening redness, swelling Prescriptions: New doxycycline monohydrate 100 mg tablet 100 mg PO BID Qty: 20 RF: 0 No Action levofloxacin 750 mg Tablet 750 mg PO Q24H Qty: 41 RF: 0 amoxicillin-pot clavulanate [Augmentin] 875-125 mg tablet 1 tab PO Q12H 10 Days Qty: 20 RF: 0 erythromycin 5 mg/gram (0.5 %) ointment 0.5 inch ophthalmic (eye) Q4H 7 Days Qty: 1 RF: 0 amoxicillin-pot clavulanate [Augmentin] 875-125 mg tablet 1 tab PO Q12H 10 Days Qty: 20 RF: 0 Referrals: Physician,Unknown [Primary Care Provider] - 2 days Interventions: ED Discharge Assessment Last Done: 06/22/21 22:16 Discharge Date/Time: 06/22/21 22:18 Print Language: [place]
--- NOTE | 2021-06-22 22:14 | PC.NURSE ---
PT medicated per DEC. Discharge instructions given to PT. PT ready to go home.
== END 2021-06-22 22:18 | disposition home or self-care (01) ==
PROVIDERS: Emergency Provider Internal Medicine
DX: L02.413 Cutaneous abscess of right upper limb (principal); F19.10 Other psychoactive substance abuse, uncomplicated
CPT/HCPCS: 10060; 36415; 85025; 87040; 99283; 99284

== ENCOUNTER 2021-10-15 21:17 | Emergency (ER) | payer MEDICAID, SELFPAY ==
--- NOTE | ~2021-10-15 | XR_ITS ---
EXAMINATION: XR CHEST CLINICAL INFORMATION: Chest pain COMPARISON: 01/25/2021 TECHNIQUE: Frontal view of the chest was obtained. FINDINGS: Lung volumes are symmetric. No acute consolidation is seen. Redemonstrated density, previously characterized as a lipoma. No evidence of pneumothorax, pleural effusion, or pulmonary edema. The cardiomediastinal contour is unremarkable. No acute osseous findings are seen. XR/XR chest 1V IMPRESSION: No acute cardiopulmonary findings.
[2021-10-15 22:58] VITALS: BP 149/86; PULSE 81; RESP 15; TEMP 37; O2SAT 97; BMI 32.5
[2021-10-15 23:19] LABS: COVID-19 Test Negative (Negative); IDNOW Serial# 9DD0AD1C
--- NOTE | 2021-10-16 00:45 | ECG_ITS ---
Test Reason : cp Blood Pressure : / mmHG Vent. Rate : 091 BPM Atrial Rate : 091 BPM P-R Int : 160 ms QRS Dur : 110 ms QT Int : 384 ms P-R-T Axes : 053 000 038 degrees QTc Int : 472 ms Normal sinus rhythm Incomplete right bundle branch block Minimal voltage criteria for LVH, may be normal variant ( R in aVL ) Borderline ECG When compared with ECG of 25-JAN-2021 21:43, No significant change was found Referred By: Marguerite Vanegas Electronically Signed By:Travis Ewing
--- NOTE | 2021-10-16 00:47 | ED_ITS ---
HPI - General Adult General Chief complaint: Upper Respiratory Symptoms Stated complaint: chest pain Time Seen by Provider: 10/16/21 00:38 Source: patient Mode of arrival: ambulatory Limitations: no limitations History of Present Illness HPI narrative: Patient comes to the emergency room complaining of cough, wheezi ng. Patient states that all his symptoms started 2 days ago. Patient also complaining of chest pressure, states that she feels that he has a Cork stop in the middle of the chest. This sensation started approximately 12 hours ago. Patient states it is not pain, ileus feels that there is something stuck in his chest. Patient denies eating anything that might have gotten stuck. Patient denies vomiting or diarrhea. Patient complaining of chills, cold sweats, denies fever. Related Data Previous Rx's Medication Instructions Recorded levofloxacin 750 mg tablet 750 mg PO Q24H #41 tab 10/17/20 amoxicillin 875 mg-potassium 1 tab PO Q12H 10 Days #20 tab 01/11/21 clavulanate 125 mg tablet (Augmentin) erythromycin 5 mg/gram (0.5 %) eye 0.5 inch OPHTHALMIC (EYE) Q4H 7 01/11/21 ointment Days #1 g amoxicillin 875 mg-potassium 1 tab PO Q12H 10 Days #20 tab 03/26/21 clavulanate 125 mg tablet (Augmentin) doxycycline monohydrate 100 mg 100 mg PO BID #20 tab 06/22/21 tablet Allergies Allergy/AdvReac Type Severity Reaction Status Date / Time No Known Allergies Allergy Verified 04/22/21 10:44 [No Known Allergies*] Review of Systems Review of Systems: Constitutional : No Weight loss, No Fever, complaining of chills, cold sweats, fatigue, generalized malaise ENT/Mouth : No Hearing loss, No Ear Pain, No Nasal Congestion, No Sinus Pain, No Hoarseness, No sore throat, No Rhinorrhea, No Swallowing Difficulty Eyes: No Eye Pain, No Swelling, No Redness, No Foreign Body, No Discharge, No Vision Changes Cardiovascular : No Chest Pain, complaining of chest pressure in the middle of the chest for 12 hours. No SOB, No Dyspnea on Exertion, No Orthopnea, No Edema, No Palpitations Respiratory : Complaining of dry Cough, No Sputum, complaining of intermittent Wheezing, No Smoke Exposure, No Dyspnea Gastrointestinal : No Nausea, No Vomiting, No Diarrhea, No Constipation, No abdo essence Pain, No Hematochezia, No Melena Genitourinary : no irregular bleeding, No Dysuria, No Urinary Frequency, No Hematuria, No Urinary Incontinence, No Urgency, No Flank Pain, No Urinary Flow Changes, No Hesitancy Musculoskeletal : No joint pain, No Myalgias, No Joint Swelling Skin : No Skin Lesions, No rash Neuro : No Weakness, No Numbness, No Paresthesias, No Loss of Consciousness, No Dizziness, No Headache Psych : No Anxiety/Panic, No Depression, No SI/HI/AH/VH, No Social Issues, Heme/Lymph: No Bruising, No Bleeding,No Lymphadenopathy Endocrine : No Polyuria, No Polydipsia, No Temperature Intolerance [facility] Past Medical History Medical History Drug abuse and dependence Foreign body (FB) in soft tissue Patient denies significant medical history Surgical History History of colonoscopy Family History Family History Father History of cancer Mother History of high blood pressure Social History Social History Household Members: Family Housing: House Alcohol intake: never Patient Tobacco Use Status: Current everyday Tobacco user Cigarette Packs Per Day: 0.5 Cigarettes Per Day: 10.0 Substance Use Type: Heroin Advance Directives: No Advance Directives Information Provided: Yes service: No Current occupational status: employed Physical Exam Vital Signs: Vital Signs: Last Vital Signs Temp 98.6 F 10/15/21 22:58 Pulse 78 10/16/21 03:38 Resp 22 H 10/16/21 03:38 BP 148/79 H 10/16/21 03:38 Pulse Ox 96 10/16/21 03:38 BMI result Body Mass Index 32.5 Const: Other: Appearance: Alert. Oriented X3. No acute distress. Eyes: Pupils equal, round and reactive to light. Amblyopia on the left eye ENT: Pharynx normal. Neck: Normal inspection. Neck supple. No lymph nodes noted. No crepitus CVS: Normal heart rate and rhythm. Pulses normal. Normal S1 and S2 Respiratory: No respiratory distress. Breath sounds normal. No Wheezing. No rales Abdomen: Soft and nontender. No rigidity. No distention. Skin: Skin warm, clammy, patient diaphoretic. Extremities: No lower extremity edema. Neuro: Oriented X 3. No motor deficit. No sensory deficit. Moving all extermities. No slurred speech. Course Course Course Narrative: Patient's COVID test is negative, patient's vitals are normal, no fever. However, patient is diaphoretic. Patient states that he admits to using heroin, cocaine. At this time, patient states that he has no significant chest pain, just that Cork like sensations stuck in the middle of the chest that is been present for almost 13 hours now. Labs, EKG pending Patient's labs do not show any acute pathology, dimer negative, troponin negative. Patient's urinalysis is positive for opiates, fentanyl, cocaine, yareli nevaeh. Medical Decision Making Lab Data Result diagrams: 10/16/21 00:57 10/16/21 00:57 Labs: Lab Results 10/15/21 10/16/21 10/16/21 Range/Units 22:54 00:57 00:57 WBC 9.4 (4.8-10.8) X10*3/uL RBC 5.13 (4.60-5.80) X10*6/uL Hgb 14.6 (14.0-18.0) g/dl Hct 41.6 L (42.0-52.0) % MCV 81.1 (80.0-98.0) fL MCH 28.5 (27.0-33.0) pg MCHC 35.1 (31.0-36.0) g/dl RDW 13.1 (11.0-16.0) % Plt Count 228 (160-400) X10*3/uL MPV 10.0 (9.4-12.4) fL Immature Gran % (Auto) 0.3 (0.0-0.4) % Neut % (Auto) 63.8 (45-73) % Lymph % (Auto) 24.4 (20-40) % [place] % (Auto) 8.4 (2-11) % Eos % (Auto) 2.8 (0-4) % Baso % (Auto) 0.3 (0-2) % Lymph # (Auto) 2.3 (1.2-4.9) X10*3/uL [place] # (Auto) 0.8 (0.1-1.2) X10*3/uL Eos # (Auto) 0.3 (0.0-0.4) X10*3/uL Baso # (Auto) 0.0 (0.0-0.2) X10*3/uL Abs Immat Gran (auto) 0.03 (0.00-0.03) X10*3/uL Absolute Neuts (auto) 6.0 (2.0-8.3) x10*3/uL Absolute Nucleated RBC 0.000 (0.0-0.012) X10*3/uL Nucleated RBC % (auto) 0.0 (0.0-0.2) /100WBC PT 12.6 (9.9-13.0) SEC INR 1.1 (0.9-1.1) D-Dimer High Sensitivty NG/ML Sodium (135-145) mmol/L Potassium (3.3-5.1) mmol/L Chloride (96-108) mmol/L Carbon Dioxide (22-29) mmol/L Anion Gap (12-20) BUN (9-16) mg/dL Creatinine (0.5-1.4) mg/dL Estim Creat Clear Calc Estimated GFR Random Glucose (60-115) mg/dL Lactic Acid (0.5-2.0) mmol/L Calcium (8.4-10.2) mg/dL Total Bilirubin (0.0-1.0) mg/dL Direct Bilirubin (0.0-0.5) mg/dL AST (5-37) U/L ALT (0-40) U/L Alkaline Phosphatase (39-117) U/L Troponin I High Sens (<3.5-35.0) ng/L B-Natriuretic Peptide (<100) pg/mL Total Protein (6.5-8.0) g/dL Albumin (3.5-5.0) g/dL Lipase (8-78) U/L Urine Color Urine Appearance Urine pH (5.0-8.0) Ur Specific [place] (1.005-1.025) Urine Protein (NEG-TRACE) MG/DL Urine Glucose (UA) (NEG) MG/DL Urine Ketones (NEG) MG/DL Urine Blood (NEG) Urine Nitrite (NEG) Ur Leukocyte Esterase (NEG) Urine Opiates Screen (Not Detect) Urine Fentanyl Screen (Not Detect) Ur Barbiturates Screen (Not Detect) Ur Phencyclidine Scrn (Not Detect) Ur Amphetamines Screen (Not Detect) U Benzodiazepines Scrn (Not Detect) Urine Cocaine Screen (Not Detect) U Marijuana (THC) Screen (Not Detect) Ethyl Alcohol mg/dL COVID-19 ([facility]) Negative (Negative) COVID-19 Clin Com See Note 10/16/21 10/16/21 10/16/21 Range/Units 00:57 00:57 00:57 WBC (4.8-10.8) X10*3/uL RBC (4.60-5.80) X10*6/uL Hgb (14.0-18.0) g/dl Hct (42.0-52.0) % MCV (80.0-98.0) fL MCH (27.0-33.0) pg MCHC (31.0-36.0) g/dl RDW (11.0-16.0) % Plt Count (160-400) X10*3/uL MPV (9.4-12.4) fL Immature Gran % (Auto) (0.0-0.4) % Neut % (Auto) (45-73) % Lymph % (Auto) (20-40) % [place] % (Auto) (2-11) % Eos % (Auto) (0-4) % Baso % (Auto) (0-2) % Lymph # (Auto) (1.2-4.9) X10*3/uL [place] # (Auto) (0.1-1.2) X10*3/uL Eos # (Auto) (0.0-0.4) X10*3/uL Baso # (Auto) (0.0-0.2) X10*3/uL Abs Immat Gran (auto) (0.00-0.03) X10*3/uL Absolute Neuts (auto) (2.0-8.3) x10*3/uL Absolute Nucleated RBC (0.0-0.012) X10*3/uL Nucleated RBC % (auto) (0.0-0.2) /100WBC PT (9.9-13.0) SEC INR (0.9-1.1) D-Dimer High Sensitivty NG/ML Sodium 140 (135-145) mmol/L Potassium 4.4 (3.3-5.1) mmol/L Chloride 104 (96-108) mmol/L Carbon Dioxide 28 (22-29) mmol/L Anion Gap 12 (12-20) BUN 22 H (9-16) mg/dL Creatinine 1.22 (0.5-1.4) mg/dL Estim Creat Clear Calc 82.4 Estimated GFR > 60 Random Glucose 135 H (60-115) mg/dL Lactic Acid 1.3 (0.5-2.0) mmol/L Calcium 9.7 (8.4-10.2) mg/dL Total Bilirubin 1.2 H (0.0-1.0) mg/dL Direct Bilirubin 0.5 (0.0-0.5) mg/dL AST 24 (5-37) U/L ALT 11 (0-40) U/L Alkaline Phosphatase 52 (39-117) U/L Troponin I High Sens < 3.5 (<3.5-35.0) ng/L B-Natriuretic Peptide 45 (<100) pg/mL Total Protein 7.7 (6.5-8.0) g/dL Albumin 4.5 (3.5-5.0) g/dL Lipase 22 (8-78) U/L Urine Color Urine Appearance Urine pH (5.0-8.0) Ur Specific [place] (1.005-1.025) Urine Protein (NEG-TRACE) MG/DL Urine Glucose (UA) (NEG) MG/DL Urine Ketones (NEG) MG/DL Urine Blood (NEG) Urine Nitrite (NEG) Ur Leukocyte Esterase (NEG) Urine Opiates Screen (Not Detect) Urine Fentanyl Screen (Not Detect) Ur Barbiturates Screen (Not Detect) Ur Phencyclidine Scrn (Not Detect) Ur Amphetamines Screen (Not Detect) U Benzodiazepines Scrn (Not Detect) Urine Cocaine Screen (Not Detect) U Marijuana (THC) Screen (Not Detect) Ethyl Alcohol mg/dL COVID-19 ([facility]) (Negative) COVID-19 Clin Com 10/16/21 10/16/21 10/16/21 Range/Units 00:57 00:57 03:46 WBC (4.8-10.8) X10*3/uL RBC (4.60-5.80) X10*6/uL Hgb (14.0-18.0) g/dl Hct (42.0-52.0) % MCV (80.0-98.0) fL MCH (27.0-33.0) pg MCHC (31.0-36.0) g/dl RDW (11.0-16.0) % Plt Count (160-400) X10*3/uL MPV (9.4-12.4) fL Immature Gran % (Auto) (0.0-0.4) % Neut % (Auto) (45-73) % Lymph % (Auto) (20-40) % [place] % (Auto) (2-11) % Eos % (Auto) (0-4) % Baso % (Auto) (0-2) % Lymph # (Auto) (1.2-4.9) X10*3/uL [place] # (Auto) (0.1-1.2) X10*3/uL Eos # (Auto) (0.0-0.4) X10*3/uL Baso # (Auto) (0.0-0.2) X10*3/uL Abs Immat Gran (auto) (0.00-0.03) X10*3/uL Absolute Neuts (auto) (2.0-8.3) x10*3/uL Absolute Nucleated RBC (0.0-0.012) X10*3/uL Nucleated RBC % (auto) (0.0-0.2) /100WBC PT (9.9-13.0) SEC INR (0.9-1.1) D-Dimer High Sensitivty 172 NG/ML Sodium (135-145) mmol/L Potassium (3.3-5.1) mmol/L Chloride (96-108) mmol/L Carbon Dioxide (22-29) mmol/L Anion Gap (12-20) BUN (9-16) mg/dL Creatinine (0.5-1.4) mg/dL Estim Creat Clear Calc Estimated GFR Random Glucose (60-115) mg/dL Lactic Acid (0.5-2.0) mmol/L Calcium (8.4-10.2) mg/dL Total Bilirubin (0.0-1.0) mg/dL Direct Bilirubin (0.0-0.5) mg/dL AST (5-37) U/L ALT (0-40) U/L Alkaline Phosphatase (39-117) U/L Troponin I High Sens (<3.5-35.0) ng/L B-Natriuretic Peptide (<100) pg/mL Total Protein (6.5-8.0) g/dL Albumin (3.5-5.0) g/dL Lipase (8-78) U/L Urine Color YELLOW Urine Appearance CLEAR Urine pH 5.5 (5.0-8.0) Ur Specific [place] >= 1.030 H (1.005-1.025) Urine Protein NEG (NEG-TRACE) MG/DL Urine Glucose (UA) NEG (NEG) MG/DL Urine Ketones NEG (NEG) MG/DL Urine Blood NEG (NEG) Urine Nitrite NEG (NEG) Ur Leukocyte Esterase NEG (NEG) Urine Opiates Screen (Not Detect) Urine Fentanyl Screen (Not Detect) Ur Barbiturates Screen (Not Detect) Ur Phencyclidine Scrn (Not Detect) Ur Amphetamines Screen (Not Detect) U Benzodiazepines Scrn (Not Detect) Urine Cocaine Screen (Not Detect) U Marijuana (THC) Screen (Not Detect) Ethyl Alcohol < 10 mg/dL COVID-19 ([facility]) (Negative) COVID-19 Clin Com 10/16/21 Range/Units 03:46 WBC (4.8-10.8) X10*3/uL RBC (4.60-5.80) X10*6/uL Hgb (14.0-18.0) g/dl Hct (42.0-52.0) % MCV (80.0-98.0) fL MCH (27.0-33.0) pg MCHC (31.0-36.0) g/dl RDW (11.0-16.0) % Plt Count (160-400) X10*3/uL MPV (9.4-12.4) fL Immature Gran % (Auto) (0.0-0.4) % Neut % (Auto) (45-73) % Lymph % (Auto) (20-40) % [place] % (Auto) (2-11) % Eos % (Auto) (0-4) % Baso % (Auto) (0-2) % Lymph # (Auto) (1.2-4.9) X10*3/uL [place] # (Auto) (0.1-1.2) X10*3/uL Eos # (Auto) (0.0-0.4) X10*3/uL Baso # (Auto) (0.0-0.2) X10*3/uL Abs Immat Gran (auto) (0.00-0.03) X10*3/uL Absolute Neuts (auto) (2.0-8.3) x10*3/uL Absolute Nucleated RBC (0.0-0.012) X10*3/uL Nucleated RBC % (auto) (0.0-0.2) /100WBC PT (9.9-13.0) SEC INR (0.9-1.1) D-Dimer High Sensitivty NG/ML Sodium (135-145) mmol/L Potassium (3.3-5.1) mmol/L Chloride (96-108) mmol/L Carbon Dioxide (22-29) mmol/L Anion Gap (12-20) BUN (9-16) mg/dL Creatinine (0.5-1.4) mg/dL Estim Creat Clear Calc Estimated GFR Random Glucose (60-115) mg/dL Lactic Acid (0.5-2.0) mmol/L Calcium (8.4-10.2) mg/dL Total Bilirubin (0.0-1.0) mg/dL Direct Bilirubin (0.0-0.5) mg/dL AST (5-37) U/L ALT (0-40) U/L Alkaline Phosphatase (39-117) U/L Troponin I High Sens (<3.5-35.0) ng/L B-Natriuretic Peptide (<100) pg/mL Total Protein (6.5-8.0) g/dL Albumin (3.5-5.0) g/dL Lipase (8-78) U/L Urine Color Urine Appearance Urine pH (5.0-8.0) Ur Specific [place] (1.005-1.025) Urine Protein (NEG-TRACE) MG/DL Urine Glucose (UA) (NEG) MG/DL Urine Ketones (NEG) MG/DL Urine Blood (NEG) Urine Nitrite (NEG) Ur Leukocyte Esterase (NEG) Urine Opiates Screen POSITIVE H (Not Detect) Urine Fentanyl Screen POSITIVE H (Not Detect) Ur Barbiturates Screen Not Detected (Not Detect) Ur Phencyclidine Scrn Not Detected (Not Detect) Ur Amphetamines Screen Not Detected (Not Detect) U Benzodiazepines Scrn Not Detected (Not Detect) Urine Cocaine Screen POSITIVE H (Not Detect) U Marijuana (THC) Screen POSITIVE H (Not Detect) Ethyl Alcohol mg/dL COVID-19 ([facility]) (Negative) COVID-19 Clin Com Imaging Data Chest x-ray: Radiologist's impression: Lung volumes are symmetric. No acute conso lidation is seen. Redemonstrated density, previously characterized as a lipoma. No evidence of pneumothorax, pleural effusion, or pulmonary edema. The cardiomediastinal contour is unremarkable. No acute osseous findings are seen. XR/XR chest 1V IMPRESSION: No acute cardiopulmonary findings. ECG Data Attestation: I personally reviewed and interpreted this ECG as follows: (Senna rhythm, heart rate 91, no ST segment depression or elevation, no T-wave inversion, QTC 472) Discharge Plan Discharge Clinical Impression: Malaise, Polysubstance abuse Patient Disposition: Home, Self-Care Instructions: Polysubstance Abuse (ED) Additional Instructions: Please follow-up with your primary care physician tomorrow. If you have any worsening or new symptoms, please return to the emergency room or call 911 Prescriptions: No Action levofloxacin 750 mg Tablet 750 mg PO Q24H Qty: 41 RF: 0 amoxicillin-pot clavulanate [Augmentin] 875-125 mg tablet 1 tab PO Q12H 10 Days Qty: 20 RF: 0 erythromycin 5 mg/gram (0.5 %) ointment 0.5 inch ophthalmic (eye) Q4H 7 Days Qty: 1 RF: 0 amoxicillin-pot clavulanate [Augmentin] 875-125 mg tablet 1 tab PO Q12H 10 Days Qty: 20 RF: 0 doxycycline monohydrate 100 mg tablet 100 mg PO BID Qty: 20 RF: 0
[2021-10-16 01:27] LABS: Basophils Percent Auto 0.3 % (0-2); Eosinophils Absolute Auto 0.3 X10*3/uL (0.0-0.4); Eosinophils Percent Auto 2.8 % (0-4); Hematocrit 41.6 % (42.0-52.0); Hemoglobin 14.6 g/dl (14.0-18.0); Imm Gran Abs Auto 0.03 X10*3/uL (0.00-0.03); Imm Gran Pct Auto 0.3 % (0.0-0.4); Lymphocytes Absolute Auto 2.3 X10*3/uL (1.2-4.9); Lymphocytes Percent Auto 24.4 % (20-40); MANUAL DIFF FLAG NO; Mean Corpuscular HGB Conc 35.1 g/dl (31.0-36.0); Mean Corpuscular Hemoglobin 28.5 pg (27.0-33.0); Mean Corpuscular Volume 81.1 fL (80.0-98.0); Monocytes Absolute Auto 0.8 X10*3/uL (0.1-1.2); Monocytes Percent Auto 8.4 % (2-11); Neutrophils Percent Auto 63.8 % (45-73); Platelet Count 228 X10*3/uL (160-400); Red Blood Count 5.13 X10*6/uL (4.60-5.80); Red Cell Distribution Width 13.1 % (11.0-16.0); White Blood Count 9.4 X10*3/uL (4.8-10.8)
[2021-10-16 01:33] LABS: INTERNATIONAL NORM RATIO 1.1 (0.9-1.1); Prothrombin Time 12.6 SEC (9.9-13.0)
[2021-10-16 01:34] LABS: D Dimer High Sensitivity 172 NG/ML
[2021-10-16 01:41] LABS: Ethanol < 10 mg/dL; Lactic Acid 1.3 mmol/L (0.5-2.0)
[2021-10-16 01:45] LABS: Alanine Aminotransferase 11 U/L (0-40); Albumin Level 4.5 g/dL (3.5-5.0); Alkaline Phosphatase 52 U/L (39-117); Anion Gap 12 (12-20); Aspartate Amino Transferase 24 U/L (5-37); Bilirubin Direct 0.5 mg/dL (0.0-0.5); Bilirubin Total 1.2 mg/dL (0.0-1.0); Blood Urea Nitrogen 22 mg/dL (9-16); Calcium 9.7 mg/dL (8.4-10.2); Carbon Dioxide 28 mmol/L (22-29); Chloride 104 mmol/L (96-108); Creatinine Clr Calc Pharmacy 82.4; Estimated Glomerular Filt Rate > 60; Glucose Random 135 mg/dL (60-115); Lipase 22 U/L (8-78); Potassium 4.4 mmol/L (3.3-5.1); Sodium 140 mmol/L (135-145); Total Protein 7.7 g/dL (6.5-8.0)
[2021-10-16 01:49] LABS: B Type Natriuretic Peptide 45 pg/mL (<100); Troponin-I High Sensitivity < 3.5 ng/L (<3.5-35.0)
[2021-10-16] MEDS: 0.9 % Sodium Chloride 1,000 ML 999 ML IVCONT (02:04)
--- NOTE | 2021-10-16 02:09 | PC.NURSE ---
IV placed to Left upper arm, labs drawn to lab. NS up and running w/o site intact. pt awaiting for pending orders. pt alert, sitting up in stretcher c/o im thirsty respirations easy, n/l. skin moist. pt admits to using crack tonight.
[2021-10-16 03:38] VITALS: BP 148/79; PULSE 78; RESP 22; O2SAT 96
[2021-10-16 03:51] LABS: Appearance Urine CLEAR; Color Urine YELLOW; Glucose Urine UA NEG (NEG); Leukocyte Esterase Urine NEG (NEG); Nitrite Urine NEG (NEG); PH 5.5 (5.0-8.0); Specific Gravity - Urine >= 1.030 (1.005-1.025); Urine Blood NEG (NEG); Urine Ketones NEG (NEG); Urine Protein NEG (NEG-TRACE)
[2021-10-16 04:10] LABS: Amphetamine Screen Urine Not Detected (Not Detect); Barbiturates, Urine Not Detected (Not Detect); Benzodiazepines Screen Urine Not Detected (Not Detect); Cannabinoid Screen Urine POSITIVE (Not Detect); Cocaine Screen Urine POSITIVE (Not Detect); Fentanyl, urine POSITIVE (Not Detect); Opiate Screen Urine POSITIVE (Not Detect); Phencyclidine Screen Urine Not Detected (Not Detect)
--- NOTE | 2021-10-16 04:16 | PC.NURSE ---
pt sleeping, wakes to voice, respirations easy, n/l. skin warm, dry. pt awaiting for further orders.
== END 2021-10-16 05:24 | disposition home or self-care (01) ==
PROVIDERS: Emergency Provider Emergency Medicine
DX: R53.81 Other malaise (principal); F19.10 Other psychoactive substance abuse, uncomplicated; F11.20 Opioid dependence, uncomplicated; Z20.822 Contact with and (suspected) exposure to COVID-19; F17.200 Nicotine dependence, unspecified, uncomplicated
CPT/HCPCS: 36415; 71045; 80048; 80076; 80307; 81003; 82077; 83605; 83690; 83880; 84484; 85025; 85379; 85610; 87040; 87635; 93005; 96360; 99284

== ENCOUNTER 2022-03-31 00:40 | Emergency (ER) | payer MEDICAID, SELFPAY ==
--- NOTE | ~2022-03-31 | CT_ITS ---
EXAMINATION: CT ABDOMEN AND PELVIS WITHOUT CONTRAST CLINICAL INFORMATION: Pelvic pain. COMPARISON: CT dated 09/03/2019 TECHNIQUE: Multidetector volumetric imaging was performed from the superior aspect of the liver through the pubic symphysis. Sagittal and coronal reformatted images were obtained on the technologist's workstation. This CT examination was performed using dose optimization techniques as appropriate, variously including the following: *Automated exposure control *Adjustment of mA and/or kV according to patient size (this includes techniques or standardized protocols for targeted exams where dose is matched to indication/reason for exam; i.e. 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 LIVER, GALLBLADDER, AND BILIARY TREE: The liver is normal in size, shape, and attenuation. No focal hepatic lesion or biliary ductal dilatation is present. The gallbladder is unremarkable with no evidence of radiopaque gallstones, gallbladder wall thickening, or obvious pericholecystic inflammatory changes. PANCREAS: Unremarkable. SPLEEN: Unremarkable. ADRENAL GLANDS: Unremarkable. KIDNEYS AND URETERS: The kidneys are normal in size, shape, and attenuation. No hydronephrosis, hydroureter, or calculi seen. No perinephric stranding. BLADDER: Unremarkable. GASTROINTESTINAL TRACT: The small and large bowel are unremarkable. The appendix is unremarkable. ABDOMINAL WALL: Small fat-containing umbilical hernia without inflammation. LYMPH NODES: Normal. VASCULAR: Unremarkable. PELVIC VISCERA: Prostate and seminal vesicles unremarkable. OSSEOUS STRUCTURES: No acute or suspicious osseous abnormalities. Posterior spinal fusion at L5-S1 with bilateral paraspinal rods and transpedicular screws. CT/CT abdomen pelvis wo con IMPRESSION: No acute findings within the abdomen or pelvis to explain patient's symptomatology. Fleischner guidelines were followed.
[2022-03-31 01:11] VITALS: BP 149/94; PULSE 71; RESP 16; O2SAT 99; BMI 35.4
--- NOTE | 2022-03-31 01:14 | ED.MALEGU ---
HPI - Male Genitourinary General Chief complaint: Abdominal Pain Stated complaint: testicle pain? 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 Reporting poor appetite also reporting foul odor in the urine no hernia no trauma no fever no chills no constipation Related Data Previous Rx's Medication Instructions Recorded levofloxacin 750 mg tablet 750 mg PO Q24H #41 tabs 10/17/20 amoxicillin 875 mg-potassium 1 tab PO Q12H 10 days #20 tabs 01/11/21 clavulanate 125 mg tablet (Augmentin) erythromycin 5 mg/gram (0.5 %) eye 0.5 inch ophthalmic (eye) Q4H 7 01/11/21 ointment days #1 g amoxicillin 875 mg-potassium 1 tab PO Q12H 10 days #20 tabs 03/26/21 clavulanate 125 mg tablet (Augmentin) doxycycline monohydrate 100 mg 100 mg PO BID #20 tabs 06/22/21 tablet Allergies Allergy/AdvReac Type Severity Reaction Status Date / Time No Known Allergies Allergy Verified 03/31/22 01:14 [No Known Allergies*] Review of Systems Review of Systems: Yes all other systems are reviewed and are negative [facility] Past Medical History Medical History Patient denies significant medical history Surgical History History of colonoscopy Family History Family History Father History of cancer Mother History of high blood pressure Social History Social History Household Members: Family Housing: House Alcohol intake: never Patient Tobacco Use Status: Current everyday Tobacco user Cigarette Packs Per Day: 0.5 Cigarettes Per Day: 10.0 Substance Use Type: Heroin Advance Directives: No Advance Directives Information Provided: Yes service: No Current occupational status: employed Physical Exam Vital Signs: Vital Signs: Last Vital Signs Pulse 64 06/16/22 02:07 Resp 18 03/31/22 02:07 BP 137/79 03/31/22 02:07 Pulse Ox 98 03/31/22 02:07 O2 Del Method 03/31/22 02:07 BMI result Body Mass Index 35.4 Appearance: Alert. Oriented X3. No acute distress. Eyes: PERRLA, No Nystagmus ENT: Pharynx normal. Oral Mucosa moist Neck: Normal inspection. Neck supple. CVS: Normal heart rate and rhythm. Pulses normal. Respiratory: No respiratory distress. Equal air entry bilateral, no wheezing/rales/rhonchi Abdomen: Soft, mild suprapubic tenderness, no rebound tenderness or guarding Bowel sounds are present, no mass palpable, no CVA tenderness Genitalia: Normal nontender testicles no inguinal hernia no hydrocele Skin: Skin warm and dry. Normal skin color. Normal skin turgor. Extremities: No lower extremity edema. 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 No motor deficit. MDM - Male Genitourinary MDM Narrative Medical decision making narrative: Is nonspecific suprapubic pain CT scan abdomen negative for any acute pathology urine is negative will discharge patient home advised to follow with detox for substance abuse Lab Data Attestation: I reviewed the patient's lab results. Labs: Lab Results 03/31/22 Range/Units 01:28 Urine Color DK YELLOW Urine Appearance HAZY Urine pH 5.5 (5.0-8.0) Ur Specific [place] >= 1.030 H (1.005-1.025) Urine Protein 1+ H (NEG-TRACE) MG/DL Urine Glucose (UA) NEG (NEG) MG/DL Urine Ketones NEG (NEG) MG/DL Urine Blood NEG (NEG) Urine Nitrite NEG (NEG) Ur Leukocyte Esterase NEG (NEG) Urine RBC 0-2 (0) /HPF Urine WBC 0-2 (0-4) /HPF Ur Squamous Epith Cells 1+ /LPF Calcium Phosphate Cryst 1+ /LPF Urine Bacteria NONE /LPF Discharge Plan Discharge Clinical Impression: Abdominal pain, Drug abuse and dependence Patient Disposition: Home, Self-Care Instructions: Abdominal Pain (ED), Polysubstance Abuse (ED) Additional Instructions: Stop using heroin and cocaine Follow-up with detox and PCP for further evaluation Zenia de usar hero?na y coca?na. Seguimiento con desintoxicaci?n y PCP para yoshi evaluaci?n adicional Prescriptions: No Action levofloxacin 750 mg Tablet 750 mg PO Q24H Qty: 41 0RF amoxicillin-pot clavulanate [Augmentin] 875-125 mg tablet 1 tab PO Q12H 10 Days Qty: 20 0RF erythromycin 5 mg/gram (0.5 %) ointment 0.5 inch ophthalmic (eye) Q4H 7 Days Qty: 1 0RF amoxicillin-pot clavulanate [Augmentin] 875-125 mg tablet 1 tab PO Q12H 10 Days Qty: 20 0RF doxycycline monohydrate 100 mg tablet 100 mg PO BID Qty: 20 0RF Print Language: Chinese
[2022-03-31 01:33] LABS: Appearance Urine HAZY; Color Urine DK YELLOW; Glucose Urine UA NEG (NEG); Leukocyte Esterase Urine NEG (NEG); Nitrite Urine NEG (NEG); PH 5.5 (5.0-8.0); Specific Gravity - Urine >= 1.030 (1.005-1.025); UACC Culture Trigger NO; Urine Blood NEG (NEG); Urine Ketones NEG (NEG); Urine Protein 1+ MG/DL (NEG-TRACE)
[2022-03-31 01:38] LABS: Calcium Phosphate Crystals Ur 1+ /LPF; RBC Urine 0-2 /HPF (0); Squamous Epithelial Cell Urine 1+ /LPF; WBC Urine 0-2 /HPF (0-4)
[2022-03-31 02:07] VITALS: BP 137/79; PULSE 64; RESP 18; O2SAT 98
== END 2022-03-31 02:38 | disposition home or self-care (01) ==
PROVIDERS: Emergency Provider Internal Medicine
DX: R10.30 Lower abdominal pain, unspecified (principal); F19.20 Other psychoactive substance dependence, uncomplicated; F17.200 Nicotine dependence, unspecified, uncomplicated
CPT/HCPCS: 74176; 81001; 99283; 99284

== ENCOUNTER 2022-11-19 13:47 | Emergency (ER) | payer MEDICAID, SELFPAY ==
[2022-11-19 13:53] VITALS: BP 150/95; PULSE 71; RESP 16; TEMP 36.8; O2SAT 99; BMI 32.5
--- NOTE | 2022-11-19 14:06 | ED.GENADULT ---
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 He was previously on topical abx drops and completed the course a couple weeks ago. he has been putting water in the ear to wash it out. He feels like there may be part of a q-tip stuck in the ear. he reports decreased hearing and foul smelling drainage. he is from [place] and comes and goes from the area to visit family. MD complaint: left ear pain Onset (ago): week(s) Location: head and face Radiation: non-radiation Severity: moderate Severity scale (1-10): 7 Quality: aching Pain Consistency: constant Relieving factors: none Associated symptoms: denies other symptoms Treatments prior to arrival: none Related Data Previous Rx's Medication Instructions Recorded levofloxacin 750 mg tablet 750 mg PO Q24H #41 tabs 10/17/20 amoxicillin 875 mg-potassium 1 tab PO Q12H 10 days #20 tabs 01/11/21 clavulanate 125 mg tablet (Augmentin) erythromycin 5 mg/gram (0.5 %) eye 0.5 inch ophthalmic (eye) Q4H 7 01/11/21 ointment days #1 g amoxicillin 875 mg-potassium 1 tab PO Q12H 10 days #20 tabs 03/26/21 clavulanate 125 mg tablet (Augmentin) doxycycline monohydrate 100 mg 100 mg PO BID #20 tabs 06/22/21 tablet ciprofloxacin 0.3 %-dexamethasone 4 drp otic (ear) left BID 7 days 11/19/22 0.1 % ear drops,suspension #7.5 mL ciprofloxacin HCl 500 mg tablet 500 mg PO BID #20 tabs 11/19/22 ibuprofen 600 mg tablet 600 mg PO Q8H PRN fever or pain 11/19/22 #20 tabs Allergies Allergy/AdvReac Type Severity Reaction Status Date / Time No Known Allergies Allergy Verified 03/31/22 01:14 [No Known Allergies*] Review of Systems Review of Systems: Yes all other systems are reviewed and are negative PMFSH Past Medical History Medical History Patient denies significant medical history Surgical History History of colonoscopy Family History Family History Father History of cancer Mother History of high blood pressure Social History Social History Household Members: Family Housing: House Alcohol intake: never Patient Tobacco Use Status: Current everyday Tobacco user Cigarette Packs Per Day: 0.5 Cigarettes Per Day: 10.0 Substance Use Type: Heroin Advance Directives: No Advance Directives Information Provided: No service: No Current occupational status: employed Physical Exam ED Vital Signs: Vital Signs - 24 hr 11/19/22 13:53 Temperature 98.3 F Pulse Rate 71 Respiratory Rate 16 Blood Pressure 150/95 H Pulse Oximetry 99 Oxygen Delivery Method Room Air BMI result Body Mass Index 32.5 Appearance: Alert. Oriented X3. No acute distress. HEENT: left EAC with swelling, purulent drainage, TM with erythema and bulging. no mastoid tenderness or erythema. normal right EAC and TM CVS: Normal heart rate and rhythm. Pulses normal. Respiratory: No respiratory distress. Skin: Skin warm and dry. Normal skin color. Normal skin turgor. No rashes. Extremities: normal inspection x4 Neuro: Oriented X 3. No motor deficit. No sensory deficit. Course Course Course Narrative: 52 yo male presenting with left ear pain and drainage for the last month. completed a course of unknown topical abx. will treat with dual topical and oral quinoline. TM intact. will refer to ENT as well. stable for d/c home. staff registered nurse used to discuss diagnosis and management. Medical Decision Making Differential Diagnosis Differential Diagnoses: The differential diagnosis associated with the presentation includes otitis media, otits external, less likely mastoiditis, cholesteatoma External Record Review External record reviewed: Outpatient record, Prior outpatient labs and Prior outpatient radiology Tests considered The following testing was considered but not selected: CT scan of mastoid considered but not performed based off of physical examination Prescription Management I considered prescription management with: Pain Medication and Antibiotic Social Determinants Patient?s care significantly limited by Social Determinants of Health including: Alcoholism and drug addiction in family Critical Care Time Critical Care Time Critical Care Time: No Discharge Plan Discharge Clinical Impression: Otitis media, Otitis externa Patient Disposition: Home, Self-Care Instructions: Otitis Externa (ED), Ear Infection (ED) Additional Instructions: Take the prescribed antibiotics as directed - complete the entire course and do not miss any doses. Use the prescribed ear drops as directed. Do not get water in your ear, put a cotton ball in your ear when you bathe. [place] los antibi?ticos prescritos seg?n las indicaciones: complete todo el ciclo y no omita ninguna dosis. Use las gotas para los o?dos recetadas seg?n las indicaciones. No le entre agua en el o?do, ponga yoshi sabiha de algod?n en [place] o?do cuando se ba?e. Prescriptions: New ciprofloxacin-dexamethasone 0.3-0.1 % drops,suspension 4 drp otic (ear) left BID 7 Days Qty: 7.5 0RF ciprofloxacin HCl 500 mg tablet 500 mg PO BID Qty: 20 0RF ibuprofen 600 mg tablet 600 mg PO Q8H PRN (Reason: fever or pain) Qty: 20 0RF No Action levofloxacin 750 mg Tablet 750 mg PO Q24H Qty: 41 0RF amoxicillin-pot clavulanate [Augmentin] 875-125 mg tablet 1 tab PO Q12H 10 Days Qty: 20 0RF erythromycin 5 mg/gram (0.5 %) ointment 0.5 inch ophthalmic (eye) Q4H 7 Days Qty: 1 0RF amoxicillin-pot clavulanate [Augmentin] 875-125 mg tablet 1 tab PO Q12H 10 Days Qty: 20 0RF doxycycline monohydrate 100 mg tablet 100 mg PO BID Qty: 20 0RF Referrals: Luis Reis [Physician] - Print Language: Lebanese
--- OUTSIDE RECORDS SUMMARY | 2022-11-19 14:28 | XMS_ITS | Continuity of Care Document ---
:1970 Author Organization [facility] [place] Address [address] [place] [address] Drive [address] [place] [address]- Care Team Providers Name Role Phone Vernell GOLD, Massiel Primary Care Physician Encounter [facility] Date(s): 09/07/20 - 10/07/[address] [place], [place] [address] Allergies, Adverse Reactions, Alerts No Known Medication Allergies Immunizations Given and Recorded Vaccine Date Status Refusal Reason tetanus/diphtheria/pertussis, acel(Tdap) 07/27/20 Given Medications Tylenol 8 Hour 650 mg oral tablet, extended release 2 tablet = 1,300 mg, By Mouth, Every 8 hours, prn, 0 Refills, Maintenance, 08/05/20 10:01:00 EDT Start Date: 08/05/20 Status: Ordered
--- OUTSIDE RECORDS SUMMARY | 2022-11-19 14:28 | XMS_ITS | Continuity of Care Document ---
:1970 Author Organization [facility] Address [address] [place] [address]- Care Team Providers Name Role Phone Not on Staff, PCP Primary Care Physician Unavailable Encounter [facility] Date(s): 08/05/20 - 08/12/20 [facility] [address] [place] [address] Drive [address] [place] [address]- [facility] Attending Physician: Hector Vela MD Allergies, Adverse Reactions, Alerts No Known Medication Allergies Immunizations Given and Recorded Vaccine Date Status Refusal Reason tetanus/diphtheria/pertussis, acel(Tdap) 07/27/20 Given Medications Tylenol 8 Hour 650 mg oral tablet, extended release 2 tablet = 1,300 mg, By Mouth, Every 8 hours, 0 Refills, Maintenance, 08/05/20 10:01:00 EDT Start Date: 08/05/20 Status: Ordered Vital Signs Most recent to oldest [Reference Range]: 1 Height 173 cm (08/05/20 10:00 AM) Weight 104 kg (08/05/20 10:00 AM) Body Mass Index [18.5-24.99] 34.75 *>HHI* (08/05/20 10:00 AM) Temperature [96.8-100.4 DegF] 96.4 DegF *L* (08/05/20 10:00 AM)
--- OUTSIDE RECORDS SUMMARY | 2022-11-19 14:28 | XMS_ITS | Continuity of Care Document ---
:1970 Author Organization [facility] Address [address] [place] [address]- Care Team Providers Name Role Phone Not on Staff, PCP Primary Care Physician Unavailable Encounter [facility] Date(s): 07/27/20 - 07/27/[address] [address]- [facility] Encounter Diagnosis Partial traumatic amputation of finger through phalanx (Final) - 07/27/20 Fracture of finger of left hand (Final) - 07/27/20 Discharge Disposition: A-D/C Home Attending Physician: Bob Granado DO Admitting Physician: Bob Granado DO Referring Physician: Not on Staff, Referring MD Allergies, Adverse Reactions, Alerts No Known Medication Allergies Immunizations Given and Recorded Vaccine Date Status Refusal Reason tetanus/diphtheria/pertussis, acel(Tdap) 07/27/20 Given Medications doxycycline hyclate 100 mg oral capsule 1 capsule = 100 mg, By Mouth, 2 times a day, for 7 days, # 14 capsule, 0 Refills, Acute 08/03/20 16:39:00 EDT, 07/27/20 16:39:00 EDT, Capsule, [facility] 3, 173, cm, 07/27/20 11:26:00 EDT, Height, 110.5, kg, 07/27/20 11:26:00 EDT, Dry Weight Start Date: 07/27/20 Stop Date: 08/03/20 Status: Ordered Results Radiology Reports Exam Date Time Procedure Performing Provider Status 07/27/20 5:08 PM Hand Min 3 Views Left Yen Moses; Auth ( Verified) Notes:(Hand Min 3 Views Left) Reason For Exam: Post-ReductionRESULT: Hand Min 3 Views Left Hand Min 3 Views Left, 3 views Hx of Present Illness: partial amp L middle digit - on a machine at work; Reason: Post-Reduction; Clinical Question(s): Position Fixation COMPARISON: 07/27/2020. FINDINGS: Again demonstrated are comminuted displaced fractures at the second and third middle phalanges with adjacent soft tissue injury. There is interval placement of an overlying cast which obscures fine bone detail. Again demonstrated are posttraumatic changes at the imaged distal radius and ulna. IMPRESSION: Again demonstrated are comminuted and displaced fractures of the second and third middle phalanges. There is interval placement of an overlying cast which obscures fine bony detail. WSN: [id number] Ordering Physician: Belkis Jay Dictated By: Rebecca Enriquez MD Dictated Date/Time: 07/27/20 5:23 pm Reviewed By: Rebecca Enriquez MD Signed By: Rebecca Enriquez MD Signed Date/Time: 07/27/20 5:23 pm Transcribed By: CINDY Transcribed Date/Time: 07/27/20 5:20 pm Exam Date Time Procedure Performing Provider Status 07/27/20 3:06 PM Chest 2 Views Frontal and Lat Princess Saavedra; Adri (Verified) Notes:(Chest 2 Views Frontal and Lat) Reason For Exam: PreopRESULT: Chest 2 Views Frontal and Lat Chest 2 Views Frontal and Lat Hx of Present Illness: partial amp L middle digit - on a machine at work; Reason: Preop; Clinical Question(s): Pneumonia COMPARISON: None. FINDINGS: LINES AND TUBES: None. LUNGS AND PLEURA: Low lung volumes with mild basilar atelectasis. Lungs are otherwise clear with no consolidation. No pleural effusion. No pneumothorax. HEART, MEDIASTINUM AND HUGO: Heart is normal in size. Normal mediastinal and hilar contour. BONES AND SOFT TISSUES: No acute abnormality. Mild degenerative changes of both AC joints and the spine. IMPRESSION: No acute abnormality. I have personally reviewed the images and I agree with this report. WSN: [id number] Ordering Physician: Corinne Kim Dictated By: Alexsander Yip DO Dictated Date/Time: 07/27/20 3:18 pm Reviewed By: Jef Valencia MD Signed By: Jef Valencia MD Signed Date/Time: 07/27/20 3:23 pm Transcribed By: CINDY Transcribed Date/Time: 07/27/20 3:14 pm Exam Date Time Procedure Performing Provider Status 07/27/20 12:48 PM Hand Min 3 Views Left Lisha Guardado; Auth (V erified) Notes:(Hand Min 3 Views Left) Reason For Exam: with Pain;TraumaRESULT: Hand Min 3 Views Left Left hand , 3 views Hx of Present Illness: partial amp L middle digit - on a machine at work; COMPARISON: None. FINDINGS: Comminuted fractures of the 2nd and 3rd middle phalanges. One of the fractures is volarly displaced and dorsally angulated, probably the 2nd middle phalanx although it is difficult to tell on the lateral view which finger is which. No foreign bodies. Old deformity of the distal radius is probably due to trauma. There is moderate arthritic change of the radiocarpal joint. IMPRESSION: Comminuted fractures of the 2nd and 3rd middle phalanges. WSN: [id number] Ordering Physician: Corinne Kim Dictated By: Johnny Cardenas MD Dictated Date/Time: 07/27/20 12:53 p Reviewed By: Johnny Cardenas MD Signed By: Johnny Cardenas MD Signed Date/Time: 07/27/20 12:53 pm Transcribed By: CINDY Transcribed Date/Time: 07/27/20 12:51 pm Vital Signs Most recent to oldest 1 2 3 [Reference Range]: Height 173 cm 173 cm 173 cm (07/27/20 6:23 PM) (07/27/20 11:26 AM) (07/27/20 11:16 AM) Weight 110.5 kg 110.5 kg 110.5 kg (07/27/20 6:23 PM) (07/27/20 11:26 AM) (07/27/20 11:16 AM) Oxygen Saturation [94-100 99 % 100 % %] (07/27/20 6:23 PM) (07/27/20 11:16 AM) Pulse Rate [55-90 bpm] 76 bpm 70 bpm (07/27/20 6:23 PM) (07/27/20 11:16 AM) Body Mass Index 36.92 [18.5-24.99] *>HHI* (07/27/20 11:16 AM) Blood Pressure 136/76 mm Hg 138/86 mm Hg [90-138/55-84 mm Hg] (07/27/20 6:23 PM) (07/27/20 11:16 AM) Respiratory Rate [16-30 20 br/min 20 br/min br/min] (07/27/20 6:23 PM) (07/27/20 11:16 AM) Temperature [96.8-100.4 98.6 DegF 97.8 DegF DegF] (07/27/20 6:23 PM) (07/27/20 11:16 AM) Mode of Delivery (Oxygen) Room air Room air (07/27/20 6:23 PM) (07/27/20 11:16 AM) Blood pressure sites Arm, left Arm, right (07/27/20 6:23 PM) (07/27/20 11:16 AM) Temperature Route Oral Oral (07/27/20 6:23 PM) (07/27/20 11:16 AM) Dry Weight 110.5 kg 110.5 kg 110.5 kg (07/27/20 6:23 PM) (07/27/20 11:26 AM) (07/27/20 11:16 AM) Weight Obtained Via Patient/family stated (07/27/20 11:16 AM) Dry Weight Obtained Via Patient/family stated (07/27/20 11:16 AM)
--- OUTSIDE RECORDS SUMMARY | 2022-11-19 14:28 | XMS_ITS | Continuity of Care Document ---
:1970 Author Organization [facility] Address [address] [place] [address] Drive [address] [place] [address]- Care Team Providers Name Role Phone Vernell GOLD, Massiel Primary Care Physician Encounter [facility] Date(s): 11/23/20 - 11/30/20 [facility] [address] [place], [place] [address] Attending Physician: Hector Vela MD Allergies, Adverse [...] recent to oldest [Reference Range]: 1 Height 175.26 cm (11/23/20 11:23 AM) Weight 100 kg (11/23/20 11:23 AM) Body Mass Index [18.5-24.99] 32.56 *>HHI* (11/23/20 11:23 AM) Temperature [96.8-100.4 DegF] 97.5 DegF (11/23/20 11:23 AM) Social History Social History Type Response Smoking Status 5-9 cigarettes (between 1/4 to 1/2 pack)/day in last 30 days entered on: 10/28/20 Sex
--- OUTSIDE RECORDS SUMMARY | 2022-11-19 14:28 | XMS_ITS | Continuity of Care Document ---
:1970 Author Organization [facility] Address [address] [place] [address] Drive [address] [place] [address]- Care Team Providers Name Role Phone Vernell GOLD, Massiel Primary Care Physician Encounter [facility] Date(s): 08/25/20 - 09/24/[address] [place], [place] [address] Allergies, Adverse Reactions, Alerts No Known Medication Allergies Immunizations Given and Recorded Vaccine Date Status Refusal Reason tetanus/diphtheria/pertussis, acel(Tdap) 07/27/20 Given Medications Tylenol 8 Hour 650 mg oral tablet, extended release 2 tablet = 1,300 mg, By Mouth, Every 8 hours, prn, 0 Refills, Maintenance, 08/05/20 10:01:00 EDT Start Date: 08/05/20 Status: Ordered
--- OUTSIDE RECORDS SUMMARY | 2022-11-19 14:28 | XMS_ITS | Continuity of Care Document ---
:1970 Author Organization [facility] Address [address] [place] [address] Drive [address] [place] [address]- Care Team Providers Name Role Phone Vernell GOLD, Massiel Primary Care Physician Encounter [facility] Date(s): 10/28/20 - 11/04/[address] [place], [place] [address] Attending Physician: Hector Vela MD Referring Physician: Massiel Matt MD Allergies, Adverse Reactions, Alerts No Known [...] oldest [Reference Range]: 1 Height 175.26 cm (10/28/20 2:31 PM) Weight 110 kg (10/28/20 2:31 PM) Body Mass Index [18.5-24.99] 35.81 *>HHI* (10/28/20 2:31 PM) Temperature [96.8-100.4 DegF] 97.7 DegF (10/28/20 2:31 PM) Social History Social History Type Response Smoking Status 5-9 cigarettes (between 1/4 to 1/2 pack)/day in last 30 days entered on: 10/28/20 Sex
--- OUTSIDE RECORDS SUMMARY | 2022-11-19 14:28 | XMS_ITS | Continuity of Care Document ---
:1970 Author Organization [facility] Address [address] [place] [address] Drive [address] [place] [address]- Care Team Providers Name Role Phone Vernell GOLD, Massiel Primary Care Physician Encounter [facility] Date(s): 12/21/20 - 12/28/20 [facility] [address] [place] [address] Drive [address] [place], [place] [address] Attending Physician: Hector Vela MD Allergies, Adverse [...] oldest [Reference Range]: 1 Height 175.26 cm (12/21/20 10:27 AM) Weight 100 kg (12/21/20 10:27 AM) Body Mass Index [18.5-24.99] 32.56 *>HHI* (12/21/20 10:27 AM) Temperature [96.8-100.4 DegF] 98.0 DegF (12/21/20 10:27 AM) Social History Social History Type Response Smoking Status 5-9 cigarettes (between 1/4 to 1/2 pack)/day in last 30 days entered on: 10/28/20 Sex
--- OUTSIDE RECORDS SUMMARY | 2022-11-19 14:29 | XMS_ITS | Continuity of Care Document ---
:1970 Author Organization [facility] Address [address] [place] [address]- Care Team Providers Name Role Phone Vernell GOLD, Massiel Primary Care Physician [facility] Date(s): 09/07/20 - 10/15/[address] [id number] Attending Physician: Hector Vela MD Allergies, Adverse [...]
--- OUTSIDE RECORDS SUMMARY | 2022-11-19 14:29 | XMS_ITS | Continuity of Care Document ---
:1970 Author Organization [facility] Address [address] [place] [address] Drive [address] [place] [address]- Care Team Providers Name Role Phone Vernell GOLD, Massiel Primary Care Physician Encounter [facility] Date(s): 12/21/20 - 01/20/21 [facility] [address] [place] [address] Drive [address] [place], [place] [address] Attending Physician: Vik Snow Admitting Physician: Vik Snow Referring Physician: AdmtrVik Allergies, Adverse Reactions, Alerts No Known Medication Allergies Immunizations Given and Recorded Vaccine Date Status Refusal Reason tetanus/diphtheria/pertussis, acel(Tdap) 07/27/20 Given Medications Tylenol 8 Hour 650 mg oral tablet, extended release 2 tablet = 1,300 mg, By Mouth, Every 8 hours, prn, 0 Refills, Maintenance, 08/05/20 10:01:00 EDT Start Date: 08/05/20 Status: Ordered Social History Social History Type Response Smoking Status 5-9 cigarettes (between 1/4 to 1/2 pack)/day in last 30 days entered on: 10/28/20 Sex
--- OUTSIDE RECORDS SUMMARY | 2022-11-19 14:29 | XMS_ITS | Continuity of Care Document ---
:1970 Author Organization [facility] Address [address] [place] [address] Drive [address] [place] [address]- Care Team Providers Name Role Phone Vernell GOLD, Massiel Primary Care Physician [facility]counter [facility] Date(s): 09/15/20 - 10/15/[address] [place], [place] [address] Allergies, Adverse Reactions, Alerts No Known Medication Allergies Immunizations Given and Recorded Vaccine Date Status Refusal Reason tetanus/diphtheria/pertussis, acel(Tdap) 07/27/20 Given Medications Tylenol 8 Hour 650 mg oral tablet, extended release 2 tablet = 1,300 mg, By Mouth, Every 8 hours, prn, 0 Refills, Maintenance, 08/05/20 10:01:00 EDT Start Date: 08/05/20 Status: Ordered
--- OUTSIDE RECORDS SUMMARY | 2022-11-19 14:29 | XMS_ITS | Continuity of Care Document ---
:1970 Author Organization [facility] Address [address] [place] [address] Drive [address] [place] [address]- Care Team Providers Name Role Phone Vernell GOLD, Massiel Primary Care Physician Encounter [facility] Date(s): 09/18/20 - 11/13/[address] [place], [place] [address] Attending Physician: Hector Vela [...]
--- OUTSIDE RECORDS SUMMARY | 2022-11-19 14:29 | XMS_ITS | Continuity of Care Document ---
:1970 Author Organization [facility] Address [address] [place] [address] Drive [address] [place] [address]- Care Team Providers Name Role Phone Vernell GOLD, Massiel Primary Care Physician [facility]counter [facility] Date(s): 12/24/20 - 01/23/21 [facility] [address] [place], [place] [address] Allergies, Adverse Reactions, Alerts No Known Medication [...]
--- OUTSIDE RECORDS SUMMARY | 2022-11-19 14:29 | XMS_ITS | Continuity of Care Document ---
:1970 Author Organization [facility] Address [address] [place] [address] Drive [address] [place] [address]- Care Team Providers Name Role Phone Vernell GOLD, Massiel Primary Care Physician [facility]counter [facility] Date(s): 10/14/20 - 11/14/[address] [place], [place] [address] Attending Physician: Hector Vela MD Allergies, Adverse [...]
--- OUTSIDE RECORDS SUMMARY | 2022-11-19 14:29 | XMS_ITS | Continuity of Care Document ---
:1970 Author Organization [facility] Address [address] [place] [address]- Care Team Providers Name Role Phone Not on Staff, PCP Primary Care Physician Unavailable Encounter [facility] Date(s): 07/30/20 - 07/30/[address] [address]- [facility] Discharge Disposition: A-D/C Home Attending Physician: Hector Vela MD Admitting Physician: Hector Vela MD Referring Physician: Hector Vela MD Allergies, Adverse Reactions, Alerts No Known Medication Allergies Immunizations Given and Recorded Vaccine Date Status Refusal Reason tetanus/diphtheria/pertussis, acel(Tdap) 07/27/20 Given Medications doxycycline hyclate 100 mg oral capsule 1 capsule = 100 mg, By Mouth, 2 times a day, for 7 days, # 14 capsule, 0 Refills, Acute 08/03/20 16:39:00 EDT, 07/27/20 16:39:00 EDT, Capsule, [facility] 3, 173, cm, 07/27/20 11:26:00 EDT, Height, 110.5, kg, 07/27/20 11:26:00 EDT, Dry Weight Start Date: 07/27/20 Stop Date: 08/03/20 Status: Ordered Vital Signs Most recent to oldest 1 2 3 [Reference Range]: Weight 104.6 kg (07/30/20 12:39 PM) Oxygen Saturation [94-100 100 % 97 % 100 % %] (07/30/20 6:15 PM) (07/30/20 6:00 PM) (07/30/20 5:45 PM) Pulse Rate [55-90 bpm] 59 bpm (07/30/20 12:39 PM) Blood Pressure 113/76 mm Hg 115/79 mm Hg 110/75 mm Hg [90-138/55-84 mm Hg] (07/30/20 6:15 PM) (07/30/20 6:00 PM) (07/16 03/04 5:45 PM) Respiratory Rate [16-30 20 br/min 11 br/min 10 br/mi n br/min] (07/30/20 6:15 PM) *L* *L* (07/30/20 6:00 PM) (07/30/20 5:4 5 PM) Temperature [96.8-100.4 97.2 DegF 98.3 DegF DegF] (07/30/20 5:00 PM) (07/30/20 12:39 PM) Liters per Minute 6 L/min 6 L/min 6 L/min (07/30/20 5:45 PM) (07/30/20 5:30 PM) (07/30/20 5:15 PM) Mode of Delivery (Oxygen) Room air Room air Simple face mask (07/30/20 6:15 PM) (07/30/20 6:00 PM) (07/30/20 5:45 PM) Blood pressure sites Arm, right Arm, right Arm, right (07/30/20 5:00 PM) (07/30/20 2:00 PM) (07/30/20 12:39 PM) Temperature Route Temporal Temporal (07/30/20 5:00 PM) (07/30/20 12:39 PM) Dry Weight 104.6 kg (07/30/20 12:39 PM) Weight Obtained Via Standing scale (07/30/20 12:39 PM)
--- OUTSIDE RECORDS SUMMARY | 2022-11-19 14:29 | XMS_ITS | Continuity of Care Document ---
:1970 Author Organization [facility] Address [address] [place] [address]- Care Team Providers Name Role Phone Vernell GOLD, Massiel Primary Care Physician Encounter [facility] Date(s): 09/17/20 - 10/31/[address] [address] Attending Physician: Hector Vela MD Admitting Physician: Hector Vela MD Allergies, Adverse Reactions, [...] oldest [Reference Range]: 1 Height 175.26 cm (09/24/20 5:16 PM) Weight 100 kg (09/24/20 5:16 PM) Body Mass Index [18.5-24.99] 32.56 *>HHI* (09/24/20 5:16 PM) Dry Weight 100 kg (09/24/20 5:16 PM) Weight Obtained Via Patient/family stated (09/24/20 5:16 PM) Dry Weight Obtained Via Patient/family stated (09/24/20 5:16 PM) Social History Social History Type Response Smoking Status 5-9 cigarettes (between 1/4 to 1/2 pack)/day in last 30 days entered on: 10/28/20 Sex
--- OUTSIDE RECORDS SUMMARY | 2022-11-19 14:29 | XMS_ITS | Continuity of Care Document ---
:1970 Author Organization [facility] Address [address] [place] [address] Drive [address] [place] [address]- Care Team Providers Name Role Phone Vernell GOLD, Massiel Primary Care Physician [facility]counter [facility] Date(s): 12/09/20 - 01/08/21 [facility] [address] [place], [place] [address] Allergies, Adverse Reactions, Alerts No Known [...]
--- OUTSIDE RECORDS SUMMARY | 2022-11-19 14:29 | XMS_ITS | Continuity of Care Document ---
:1970 Author Organization [facility] Address [address] [place] [address] [address] [place] [address]- Care Team Providers Name Role Phone Not on Staff, PCP Primary Care Physician Unavailable Encounter [facility] Date(s): 07/29/20 - 08/05/20 [facility] [address] [place] [address] Drive [address] [place] [address]- [facility] Attending Physician: Hector Vela MD [...] oldest [Reference Range]: 1 Height 173 cm (07/29/20 2:14 PM) Weight 110 kg (07/29/20 2:14 PM) Body Mass Index [18.5-24.99] 36.75 *>HHI* (07/29/20 2:14 PM) Temperature [96.8-100.4 DegF] 98.2 DegF (07/29/20 2:14 PM)
== END 2022-11-19 14:38 | disposition home or self-care (01) ==
PROVIDERS: Emergency Provider Student in an Organized Health Care Education/Training Program
DX: H66.92 Otitis media, unspecified, left ear (principal); H60.92 Unspecified otitis externa, left ear; H92.02 Otalgia, left ear; F17.210 Nicotine dependence, cigarettes, uncomplicated
CPT/HCPCS: 99282; 99283

== ENCOUNTER 2022-12-08 11:13 | Emergency (ER) | payer MEDICAID, SELFPAY | END 2022-12-08 12:30 | disposition left against medical advice (07) | PROVIDERS: Emergency Provider Emergency Medicine | DX: M25.512 Pain in left shoulder (principal) ==

== ENCOUNTER 2023-02-01 11:03 | Emergency (ER) | payer MEDICAID, SELFPAY ==
[2023-02-01 11:05] VITALS: BP 132/84; PULSE 64; RESP 16; TEMP 36.2; O2SAT 98; BMI 29.5
--- NOTE | 2023-02-01 11:11 | ED.EYEPROB ---
HPI - Eye Problem General Chief complaint: Eye Problems <Qing Mcclain NP - Last Filed: 02/01/23 11:12> Stated complaint: R eye pain <Qing Mcclain NP - Last Filed: 02/01/23 11:12> Time Seen by Provider: 02/01/23 11:29 <Qing Mcclain NP - Last Filed: 02/01/23 11:12> History of Present Illness HPI Narrative: Patient complains of right eye foreign body and discomfort Four days ago he was grinding metal, a piece of metal flew into his eye and he was unable to get it out and now it continues to be uncomfortable he has no vision loss, now the eye is a little red but light does not hurt his eyes he has no discharge from the eye, no increasing pain in the eye no pain with movement of the eye <ELISABET Bahena - Last Filed: 02/01/23 12:23> Related Data Home medications: Previous Rx's Medication Instructions Recorded levofloxacin 750 mg tablet 750 mg PO Q24H #41 tabs 10/17/20 amoxicillin 875 mg-potassium 1 tab PO Q12H 10 days #20 tabs 01/11/21 clavulanate 125 mg tablet (Augmentin) erythromycin 5 mg/gram (0.5 %) eye 0.5 inch ophthalmic (eye) Q4H 7 01/11/21 ointment days #1 g amoxicillin 875 mg-potassium 1 tab PO Q12H 10 days #20 tabs 03/26/21 clavulanate 125 mg tablet (Augmentin) doxycycline monohydrate 100 mg 100 mg PO BID #20 tabs 06/22/21 tablet ciprofloxacin 0.3 %-dexamethasone 4 drp otic (ear) left BID 7 days 11/19/22 0.1 % ear drops,suspension #7.5 mL ciprofloxacin HCl 500 mg tablet 500 mg PO BID #20 tabs 11/19/22 ibuprofen 600 mg tablet 600 mg PO Q8H PRN fever or pain 11/19/22 #20 tabs <Qing Mcclain NP - Last Filed: 02/01/23 11:12> Allergies/adverse reactions: Allergies Allergy/AdvReac Type Severity Reaction Status Date / Time No Known Allergies Allergy Verified 03/31/22 01:14 [No Known Allergies*] <Qing Mcclain NP - Last Filed: 02/01/23 11:12> [facility] Past Medical History Medical History: Medical History Patient denies significant medical history <Qing Mcclain NP - Last Filed: 02/01/23 11:12> Surgical History: Surgical History History of colonoscopy <Qing Mcclain NP - Last Filed: 02/01/23 11:12> Family History Family History: Family History Father History of cancer Mother History of high blood pressure <Qing Mcclain NP - Last Filed: 02/01/23 11:12> Social History Social History: Social History Household Members: Family Housing: House Alcohol intake: never Patient Tobacco Use Status: Current everyday Tobacco user Cigarette Packs Per Day: 0.5 Cigarettes Per Day: 10.0 Smoked in Last 30 Days: Yes Use of substances other than those prescribed or required for medical reasons: No Substance Use Type: Heroin Advance Directives: No Advance Directives Information Provided: No service: No Current occupational status: employed <Qing Mcclain NP - Last Filed: 02/01/23 11:12> Physical Exam Vital Signs: Vital Signs: Last Vital Signs Temp 97.2 F 02/01/23 11:05 Pulse 64 02/01/23 11:05 Resp 16 02/01/23 11:05 BP 132/84 02/01/23 11:05 Pulse Ox 98 02/01/23 11:05 O2 Del Method Room Air 02/01/23 11:05 BMI result Body Mass Index 29.5 <Qing Mcclain NP - Last Filed: 02/01/23 11:12> Vital Signs: Last Vital Signs Temp 97.2 F 02/01/23 11:05 Pulse 64 02/01/23 11:05 Resp 02/01/23 11:05 BP 132/84 02/01/23 11:05 Pulse Ox 98 02/01/23 11:05 O2 Del Method Room Air 02/01/23 11:05 BMI result Body Mass Index 29.5 <ELISABET Bahena - Last Filed: 02/01/23 12:23> General appearance no distress The right eye was somewhat injected and red, there was no discharge, pupils equal round reactive to light extraocular motions are intact, visual acuity in the right eye was 2020 without correction Staining with fluorescein demonstrated a foreign body Neck is supple Respiratory no distress Extremities range of motion times <ELISABET Bahena - Last Filed: 02/01/23 12:23> Course Course Course Narrative: This is a rapid medical exam. Deferred additional HPI, ROS, PE to primary provider. 52 yo male here with right eye pain, drainage, blurry vision after a piece of metal went in his eye 4 days ago. Unsure of tetanus status. VSS <Qing Mcclain NP - Last Filed: 02/01/23 11:12> This is a rapid medical exam. Deferred additional HPI, ROS, PE to primary provider. 52 yo male here with right eye pain, drainage, blurry vision after a piece of metal went in his eye 4 days ago. Unsure of tetanus status. VSS Attempt to move foreign body with a Q-tip and irrigation was not successful, called Dr. De León office and they said come over they would remove the foreign body and patient could wait in the office till they had a slot and he departed the department and went to Dr. De León office for foreign body removal <ELISABET Bahena - Last Filed: 02/01/23 12:23> Medications Administered Discontinued Medications Generic Name Dose Route Start Last Admin Trade Name Freq PRN Reason Stop Dose Admin Fluorescein Sodium 1 strip 02/01/23 11:33 02/01/23 12:07 Fluorescein Sodium Strip EYE-LEFT 02/01/23 11:34 1 strip ONCE ONE Administration Tetracaine HCl 1 drop 02/01/23 11:33 02/01/23 12:06 Tetracaine Hcl/Pf 0.5% Oph Ashley 4 Ml Drops EYE-LEFT 02/01/23 11:34 1 drop ONCE ONE Administration <Qing Mcclain NP - Last Filed: 02/01/23 11:12> Medications Administered Discontinued Medications Generic Name Dose Route Start Last Admin Trade Name Freq PRN Reason Stop Dose Admin Fluorescein Sodium 1 strip 02/01/23 11:33 02/01/23 12:07 Fluorescein Sodium Strip EYE-LEFT 02/01/23 11:34 1 strip ONCE ONE Administration Tetracaine HCl 1 drop 02/01/23 11:33 02/01/23 12:06 Tetracaine Hcl/Pf 0.5% Oph Ashley 4 Ml Drops EYE-LEFT 02/01/23 11:34 1 drop ONCE ONE Administration <ELISABET Bahena - Last Filed: 02/01/23 12:23> Discharge Plan Discharge Clinical Impression: Foreign body of right eye <Qing Mcclain NP - Last Filed: 02/01/23 11:12> Patient Disposition: Home, Self-Care <Qing Mcclain NP - Last Filed: 02/01/23 11:12> Additional Instructions: The piece of metal in her eye is covered with tissue and I could not remove I spoke with Dr. De León office, eye doctor, they said come on over and they would fit you in and they can remove the piece of metal So go to the office right now and they will remove it <Qing Mcclain NP - Last Filed: 02/01/23 11:12> Prescriptions: No Action levofloxacin 750 mg Tablet 750 mg PO Q24H Qty: 41 0RF amoxicillin-pot clavulanate [Augmentin] 875-125 mg tablet 1 tab PO Q12H 10 Days Qty: 20 0RF erythromycin 5 mg/gram (0.5 %) ointment 0.5 inch ophthalmic (eye) Q4H 7 Days Qty: 1 0RF amoxicillin-pot clavulanate [Augmentin] 875-125 mg tablet 1 tab PO Q12H 10 Days Qty: 20 0RF doxycycline monohydrate 100 mg tablet 100 mg PO BID Qty: 20 0RF ciprofloxacin-dexamethasone 0.3-0.1 % drops,suspension 4 drp otic (ear) left BID 7 Days Qty: 7.5 0RF ciprofloxacin HCl 500 mg tablet 500 mg PO BID Qty: 20 0RF ibuprofen 600 mg tablet 600 mg PO Q8H PRN (Reason: fever or pain) Qty: 20 0RF <Qing Mcclain NP - Last Filed: 02/01/23 11:12> Referrals: Vikash De León [Physician] - (Embedded piece of metal in right eye) <Qing Mcclain NP - Last Filed: 02/01/23 11:12>
[2023-02-01] MEDS: Tetracaine HCl/PF 0.5% Oph Sol 4 ML DROPS 1 DROP EYE-LEFT (12:06)
[2023-02-01] MEDS: Fluorescein Sodium STRIP 1 STRIP EYE-LEFT (12:07)
--- NOTE | 2023-02-01 12:07 | PC.NURSE ---
medications administered by PA
== END 2023-02-01 12:24 | disposition home or self-care (01) ==
PROVIDERS: Emergency Provider Emergency Medicine Emergency Medical Services
DX: T15.01XA Foreign body in cornea, right eye, initial encounter (principal); X58.XXXA Exposure to other specified factors, initial encounter; Y93.9 Activity, unspecified; Y92.9 Unspecified place or not applicable; Y99.9 Unspecified external cause status; Z79.899 Other long term (current) drug therapy
CPT/HCPCS: 99283

== ENCOUNTER 2023-08-18 00:57 | Emergency (ER) | payer MEDICAID, SELFPAY ==
--- NOTE | ~2023-08-18 | XR_ITS ---
EXAMINATION: XR ELBOW, RIGHT CLINICAL INFORMATION: Injury. Pain. COMPARISON: None available. TECHNIQUE: AP, lateral, and oblique views of the right elbow. FINDINGS: The bone mineralization is normal. No fracture or joint effusion. Alignment is anatomic. Joint spaces are maintained. There is olecranon soft tissue swelling. XR/XR elbow RT 2V IMPRESSION: No acute osseous abnormality. Olecranon region soft tissue swelling.
[2023-08-18 01:15] VITALS: BP 114/78; PULSE 66; RESP 20; TEMP 36.8; O2SAT 97; BMI 36.9
[2023-08-18 01:30] LABS: Hematocrit 41.9 % (42.0-52.0); Hemoglobin 14.6 g/dl (14.0-18.0); Mean Corpuscular HGB Conc 34.8 g/dl (31.0-36.0); Mean Corpuscular Hemoglobin 29.3 pg (27.0-33.0); Mean Corpuscular Volume 84.1 fL (80.0-98.0); Mean Platelet Volume 9.6 fL (9.4-12.4); Platelet Count 290 X10*3/uL (160-400); Red Blood Count 4.98 X10*6/uL (4.60-5.80); Red Cell Distribution Width 12.4 % (11.0-16.0); White Blood Count 8.9 X10*3/uL (4.8-10.8)
[2023-08-18 01:54] LABS: Alanine Aminotransferase 7 U/L (0-40); Albumin Level 4.1 g/dL (3.5-5.0); Alkaline Phosphatase 64 U/L (39-117); Anion Gap 14 (12-20); Aspartate Amino Transferase 16 U/L (5-37); Bilirubin Total 0.8 mg/dL (0.0-1.0); Blood Urea Nitrogen 17 mg/dL (9-16); Calcium 9.6 mg/dL (8.4-10.2); Carbon Dioxide 29 mmol/L (22-29); Chloride 103 mmol/L (96-108); Creatinine Clr Calc Pharmacy 120.5; Estimated Glomerular Filt Rate > 60; Glucose Random 104 mg/dL (60-115); Potassium 4.1 mmol/L (3.3-5.1); Sodium 142 mmol/L (135-145); Total Protein 7.7 g/dL (6.5-8.0)
[2023-08-18 02:16] VITALS: PULSE 62; RESP 16; TEMP 36.9; O2SAT 97
--- NOTE | 2023-08-18 04:44 | PC.NURSE ---
pt ambulated to and from bathroom with a steady gait with one person standby assist - urine sample sent. pt now laying down comfortably on stretcher in no apparent distress. resp even and unlabored. waiting to be seen by ED provider
[2023-08-18 04:58] LABS: Amphetamine Screen Urine Not Detected (Not Detect); Barbiturates, Urine Not Detected (Not Detect); Benzodiazepines Screen Urine Not Detected (Not Detect); Cannabinoid Screen Urine Not Detected (Not Detect); Cocaine Screen Urine POSITIVE (Not Detect); Fentanyl, urine POSITIVE (Not Detect); Opiate Screen Urine POSITIVE (Not Detect); Phencyclidine Screen Urine Not Detected (Not Detect)
[2023-08-18 05:03] VITALS: BP 108/68; PULSE 58; RESP 16; TEMP 36.6; O2SAT 96
--- NOTE | 2023-08-18 05:16 | ED.EXTPRO ---
HPI - Extremity Problem General Chief complaint: Extremity Injury, Upper Stated complaint: Elbow pain/swelling Time Seen by Provider: 08/18/23 05:16 Source: patient Mode of arrival: ambulatory Limitations: no limitations History of Present Illness HPI Narrative: 53-year-old male who presents emergency department for evaluation of right elbow redness and swelling. Patient states he was helping his friend move stuff out of a storage unit on Monday a 08/13/2023 when he struck his elbow hard on a box. He states that the next day his elbow became swollen. He states that the elbow has become more swollen, red and warm to the touch. He denied fever or chills. He states he is feeling tired and fatigued. He denied nausea, vomiting or diarrhea. The patient does use injection heroin and does sniffed heroin as well. He states however he does not inject into his right arm but injects into his left arm. Related Data Previous Rx's Medication Instructions Recorded levofloxacin 750 mg tablet 750 mg PO Q24H #41 tabs 10/17/20 amoxicillin 875 mg-potassium 1 tab PO Q12H 10 days #20 tabs 01/11/21 clavulanate 125 mg tablet (Augmentin) erythromycin 5 mg/gram (0.5 %) eye 0.5 inch ophthalmic (eye) Q4H 7 01/11/21 ointment days #1 g amoxicillin 875 mg-potassium 1 tab PO Q12H 10 days #20 tabs 03/26/21 clavulanate 125 mg tablet (Augmentin) doxycycline monohydrate 100 mg 100 mg PO BID #20 tabs 06/22/21 tablet ciprofloxacin 0.3 %-dexamethasone 4 drp otic (ear) left BID 7 days 11/19/22 0.1 % ear drops,suspension #7.5 mL ciprofloxacin HCl 500 mg tablet 500 mg PO BID #20 tabs 11/19/22 ibuprofen 600 mg tablet 600 mg PO Q8H PRN fever or pain 11/19/22 #20 tabs acetaminophen 500 mg tablet 1,000 mg (2 x 500 mg) PO Q6H PRN 08/18/23 (Tylenol Extra Strength) fever or pain #20 tabs cephalexin 500 mg capsule 500 mg PO QID 7 days #28 caps 08/18/23 doxycycline hyclate 100 mg tablet 100 mg PO Q12H 7 days #14 tabs 08/18/23 ibuprofen 400 mg tablet 400 mg PO TID PRN fever or pain 08/18/23 #30 tabs Allergies Allergy/AdvReac Type Severity Reaction Status Date / Time No Known Allergies Allergy Verified 03/31/22 01:14 [No Known Allergies*] Review of Systems Review of Systems: Yes all other systems are reviewed and are negative [facility] Past Medical History Attestation statement: The following information was validated with the patient. [facility] Narrative: Social history: He does smoke cigarettes, denies alcohol use. He does use injection heroin several times a day and he last injected into his left hand several days ago. Medical History Patient denies significant medical history Surgical History History of colonoscopy Family History Family History Father History of cancer Mother History of high blood pressure Social History Social History Household Members: Family Housing: House Alcohol intake: never Patient Tobacco Use Status: Current everyday Tobacco user Cigarette Packs Per Day: 0.5 Cigarettes Per Day: 10.0 Substance Use Type: Heroin Advance Directives: No Advance Directives Information Provided: No service: No Current occupational status: employed Physical Exam Vital Signs: Vital Signs: Last Vital Signs Temp 97.9 F 08/18/23 05:03 Pulse 58 08/18/23 05:03 Resp 16 08/18/23 05:03 BP 108/68 08/18/23 05:03 Pulse Ox 96 08/18/23 05:03 O2 Del Method Room Air 08/18/23 05:03 BMI result Body Mass Index 36.9 Vital signs were normal exam: General: Awake, alert in no distress Head: Normocephalic, atraumatic EENT: PERRL, Lids normal, sclera normal, conjunctiva normal, nose normal , ears normal, throat without erythema or exudates Neck: Supple, no adenopathy, no trachea midline or C-spine tenderness Lung: breath sounds symmetric, no wheezing, rales or rhonchi Chest: symmetric movement, nontender Heart: regular rate and rhythm, normal S1, S2 no murmurs or rubs Abdomen: soft, non-tender, nondistended, normal bowel sounds Back: no vertebral tenderness, no CVAT Extremities: Patient's right elbow bursa is swollen flocculent, there is erythema surrounding the bursa which extends proximally and laterally, the erythema is warm to the touch Neuro: Awake, alert, oriented, normal speech, moves all extremities symmetrically Psych: Pleasant, cooperative Medical Decision Making Medical Decision Making [facility] Narrative: 53-year-old male with a 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 He denied injecting into his right arm. Patient had no significant systemic symptoms but he does feel fatigued and weak. Vital signs were normal. Examination did reveal a swollen flocculent right olecranon bursa with surrounding erythema. patient's laboratory evaluation revealed a normal CBC and CMP. Patient's presentation is consistent with an infected right olecranon bursa with cellulitis. Differential Diagnosis Differential Diagnoses: The differential diagnosis associated with the presentation includes Differential diagnosis includes was not limited to olecranon bursitis, infected olecranon bursitis, cellulitis Admission/Observation Consideration of admission/observation: Escalation of care including admission/observation considered Lab Data MDM Lab Attestation statement: I reviewed the patient's lab results. my interpretation patient's laboratory evaluation is as follows: CBC and CMP was normal. Urine drug screen was positive for opiates, fentanyl and cocaine. 08/18/23 01:24 08/18/23 01:24 Labs: Lab Results 08/18/23 08/18/23 Range/Units 01:24 04:42 WBC 8.9 (4.8-10.8) X10*3/uL RBC 4.98 (4.60-5.80) X10*6/uL Hgb 14.6 (14.0-18.0) g/dl Hct 41.9 L (42.0-52.0) % MCV 84.1 (80.0-98.0) fL MCH 29.3 (27.0-33.0) pg MCHC 34.8 (31.0-36.0) g/dl RDW 12.4 (11.0-16.0) % Plt Count 290 D (160-400) X10*3/uL MPV 9.6 (9.4-12.4) fL Absolute Nucleated RBC 0.000 (0.0-0.012) X10*3/uL Nucleated RBC % (auto) 0.0 (0.0-0.2) /100WBC Sodium 142 (135-145) mmol/L Potassium 4.1 (3.3-5.1) mmol/L Chloride 103 (96-108) mmol/L Carbon Dioxide 29 (22-29) mmol/L Anion Gap 14 (12-20) BUN 17 H (9-16) mg/dL Creatinine 0.87 (0.5-1.4) mg/dL Estim Creat Clear Calc 120.5 Estimated GFR > 60 Random Glucose 104 (60-115) mg/dL Calcium 9.6 (8.4-10.2) mg/dL Total Bilirubin 0.8 (0.0-1.0) mg/dL AST 16 (5-37) U/L ALT 7 (0-40) U/L Alkaline Phosphatase 64 (39-117) U/L Total Protein 7.7 (6.5-8.0) g/dL Albumin 4.1 (3.5-5.0) g/dL Urine Opiates Screen POSITIVE H (Not Detect) Urine Fentanyl Screen POSITIVE H (Not Detect) Ur Barbiturates Screen Not Detected (Not Detect) Ur Phencyclidine Scrn Not Detected (Not Detect) Ur Amphetamines Screen Not Detected (Not Detect) U Benzodiazepines Scrn Not Detected (Not Detect) Urine Cocaine Screen POSITIVE H (Not Detect) U Marijuana (THC) Screen Not Detected (Not Detect) Independent Interpretation I performed an independent interpretation of an: Plain X-Ray Radiology Impression Discussion of test interpretation with radiology: I have reviewed the radiologist's reading. Radiologist Impression: XR elbow RT 2V IMPRESSION: No acute osseous abnormality. Olecranon region soft tissue swelling. Dictated By: Waldo Warren Discharge Plan Discharge Clinical Impression: Narcotic drug use Infected olecranon bursa Qualifiers: Laterality: right Qualified Code(s): M71.121 - Other infective bursitis, right elbow Cellulitis Qualifiers: Site of cellulitis: extremity Site of cellulitis of extremity: upper extremity Laterality: right Qualified Code(s): L03.113 - Cellulitis of right upper limb Patient Disposition: Home, Self-Care Instructions: Cellulitis (ED), Elbow Bursitis (ED) Additional Instructions: Your laboratory evaluation was unremarkable pain You initially trauma to your right elbow cause you to have swelling of the bursa over the elbow. You then developed infection of the skin and of the bursa. Keep your arm elevated. Apply heat for 15-20 minutes 4 to 6 times a day for the next 3-4 days, heat will increase the blood flow to the area and help the healing process. Take ibuprofen 400 mg pills, 1 pills every 6 hours as needed for pain or fever. Take Tylenol (acetaminophen) 500 mg pills, 2 pills every 6 hours as needed for pain or fever. Take doxycycline 100 mg, 1 pill every 12 hours for 7 days Take Keflex (cephalexin) 500 mg pills, 1 pill 3 times a day for 7 days. Follow-up with your doctor in 2 days. Please return to the emergency department if your symptoms get worse or if you develop any symptoms that are concerning to you. Prescriptions: New doxycycline hyclate 100 mg tablet 100 mg PO Q12H 7 Days Qty: 14 0RF cephalexin 500 mg capsule 500 mg PO QID 7 Days Qty: 28 0RF acetaminophen [Tylenol Extra Strength] 500 mg tablet 1,000 mg PO Q6H PRN (Reason: fever or pain) Qty: 20 0RF ibuprofen 400 mg tablet 400 mg PO TID PRN (Reason: fever or pain) Qty: 30 0RF No Action levofloxacin 750 mg Tablet 750 mg PO Q24H Qty: 41 0RF amoxicillin-pot clavulanate [Augmentin] 875-125 mg tablet 1 tab PO Q12H 10 Days Qty: 20 0RF erythromycin 5 mg/gram (0.5 %) ointment 0.5 inch ophthalmic (eye) Q4H 7 Days Qty: 1 0RF amoxicillin-pot clavulanate [Augmentin] 875-125 mg tablet 1 tab PO Q12H 10 Days Qty: 20 0RF doxycycline monohydrate 100 mg tablet 100 mg PO BID Qty: 20 0RF ciprofloxacin-dexamethasone 0.3-0.1 % drops,suspension 4 drp otic (ear) left BID 7 Days Qty: 7.5 0RF ciprofloxacin HCl 500 mg tablet 500 mg PO BID Qty: 20 0RF ibuprofen 600 mg tablet 600 mg PO Q8H PRN (Reason: fever or pain) Qty: 20 0RF Print Language: Yi
[2023-08-18] MEDS: cephALEXin 500 MG CAPSULE PO (05:46)
[2023-08-18] MEDS: Doxycycline Monohydrate 100 MG CAPSULE PO (05:46)
== END 2023-08-18 06:11 | disposition home or self-care (01) ==
PROVIDERS: Emergency Provider Emergency Medicine Emergency Medical Services
DX: M71.121 Other infective bursitis, right elbow (principal); L03.113 Cellulitis of right upper limb; F17.210 Nicotine dependence, cigarettes, uncomplicated; Z71.6 Tobacco abuse counseling; Z79.899 Other long term (current) drug therapy
CPT/HCPCS: 36415; 73070; 80053; 80307; 85027; 99284

== ENCOUNTER 2024-04-05 12:46 | Emergency (ER) | payer MEDICAID, SELFPAY ==
--- NOTE | ~2024-04-05 | XR_ITS ---
EXAMINATION: XR SHOULDER, LEFT CLINICAL INFORMATION: Pain, injury COMPARISON: Multiple prior chest radiographs. Abdomen CT from 06/13/2017. TECHNIQUE: Three views of the left shoulder. FINDINGS: There is an acute fracture of the mid third of the clavicle with approximately one shaft width superior displacement of the proximal fragment compared to the distal fragment. The coracoclavicular distance is normal. Bones have normal alignment at the acromioclavicular joint. Large osteophytes and subarticular sclerosis of the glenohumeral joint. 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 XR/XR shoulder LT min 2V IMPRESSION: * Acute, displaced fracture of the mid third of the left clavicle. * Chronic severe osteoarthritis of the glenohumeral joint.
[2024-04-05 13:02] VITALS: BP 147/86; PULSE 73; RESP 18; TEMP 36.2; O2SAT 97; BMI 31.8
--- NOTE | 2024-04-05 13:08 | ED.EXTPRO ---
HPI - Extremity Problem General Chief complaint: Extremity Injury, Upper Stated complaint: left shoulder pain Time Seen by Provider: 04/05/24 13:21 Source: patient and inspector finishing Mode of arrival: ambulatory Limitations: language barrier History of Present Illness ED Provider: dennis JIMENEZ Narrative: Patient is a 53-year-old male with history of drug abuse and dependence presenting to the emergency department with complaint left shoulder pain after a fall down 4-5 stairs at home today. He denies head strike or loss of consciousness. Denies neck or back pain. States his only complaint of pain is to left shoulder. Reports increased pain with range of motion and range of motion limited due to pain. Denies any weakness, numbness, tingling. MD Complaint: joint pain Onset (ago): hour(s) Pain Consistency: constant Location: left and upper extremity Quality: aching Radiation: none Relieving factors: rest Exacerbating factors: range of motion and palpation Associated symptoms: denies other symptoms Context: other Related Data Previous Rx's ?Medication ?Instructions ?Recorded levofloxacin 750 mg tablet 750 mg PO Q24H #41 tabs 10/17/20 amoxicillin 875 mg-potassium 1 tab PO Q12H 10 days #20 tabs 01/11/21 clavulanate 125 mg tablet (Augmentin) erythromycin 5 mg/gram (0.5 %) eye 0.5 inch ophthalmic (eye) Q4H 7 01/11/21 ointment days #1 g amoxicillin 875 mg-potassium 1 tab PO Q12H 10 days #20 tabs 03/26/21 clavulanate 125 mg tablet (Augmentin) doxycycline monohydrate 100 mg 100 mg PO BID #20 tabs 06/22/21 tablet ciprofloxacin 0.3 %-dexamethasone 4 drp otic (ear) left BID 7 days 11/19/22 0.1 % ear drops,suspension #7.5 mL ciprofloxacin HCl 500 mg tablet 500 mg PO BID #20 tabs 11/19/22 ibuprofen 600 mg tablet 600 mg PO Q8H PRN fever or pain 11/19/22 #20 tabs acetaminophen 500 mg tablet 1,000 mg (2 x 500 mg) PO Q6H PRN 08/18/23 (Tylenol Extra Strength) fever or pain #20 tabs cephalexin 500 mg capsule 500 mg PO QID 7 days #28 caps 08/18/23 doxycycline hyclate 100 mg tablet 100 mg PO Q12H 7 days #14 tabs 08/18/23 ibuprofen 400 mg tablet 400 mg PO TID PRN fever or pain 08/18/23 #30 tabs Allergies Allergy/AdvReac Type Severity Reaction Status Date / Time No Known Allergies Allergy Verified 04/05/24 13:06 [No Known Allergies*] Review of Systems Review of Systems: Yes all other systems are reviewed and are negative Constitutional: Constitutional: Reports as per [facility] Past Medical History Medical History Patient denies significant medical history Surgical History History of colonoscopy Family History Family History Father History of cancer Mother History of high blood pressure Social History Social History Household Members: Family Housing: House Unable to assess alcohol history related to: Unknown Alcohol intake: never Patient Tobacco Use Status: Current everyday Tobacco user Cigarette Packs Per Day: 0.5 Cigarettes Per Day: 10.0 Substance Use Type: Heroin Advance Directives: No Advance Directives Information Provided: Yes Do you have a plan to hurt others: No Plan service: No Current occupational status: employed Physical Exam Vital Signs: Vital Signs: Last Vital Signs Temp 97.2 F 04/05/24 13:02 Pulse 73 04/05/24 13:02 Resp 18 04/05/24 13:02 BP 147/86 H 04/05/24 13:02 Pulse Ox 97 04/05/24 13:02 O2 Del Method Room Air 04/05/24 13:02 BMI result Body Mass Index 31.8 Vital signs have been reviewed and appear to be correct. Blood pressure normal. Heart rate normal. Respiratory rate normal. Temperature normal. Oxygen saturation normal. Const: General: cooperative, healthy appearing and no acute distress Orientation/consciousness: oriented to person, oriented to place, oriented to time and patient oriented x3 Limitations: no limitations HEENT: Head: Yes normocephalic and Yes atraumatic Ears: external ears normal General nose exam: Normal external nose present Face and sinus: Yes face symmetric Mouth: oropharynx normal and moist mucous membranes Throat: Yes uvula midline Eyes: Pupils: Equal, round and reactive pupils present Neck: Neck: Yes normal visual inspection and Yes supple Resp: Effort & Inspection: normal respiratory effort and able to speak in complete sentences Auscultation: clear to auscultation bilaterally Cardio: Rate: regular rate Rhythm: regular rhythm Heart sounds: S1 normal heart sound present and S2 normal heart sound present GI: Palpation (GI): Soft to palpation and nontender Auscultation: normoactive bowel sounds : General: Yes no CVA tenderness Back/Spine/Pelvis: Back: no CVA tenderness Skin: General skin exam: elasticity normal and turgor normal Neuro: General: oriented to person, oriented to place, oriented to time, patient oriented x3, moves all extremities, no focal motor deficits and CN's II-XI intact bilaterally Cranial nerves: Yes Equal, round and reactive pupils present Cognition (Neuro): normal cognition Extrem: General: Yes full ROM, Yes no pedal edema and Yes no calf tenderness Left upper extremity: shoulder/upper arm Details: tenderness Location: of the clavicle Laterality: mid-shaft, swelling Location: of the clavicle, axillary nerve sensory function normal and abnormal ROM Details: held in an abnormal fashion Details: in ADduction; no lacerations, no ecchymosis and no unsual warmth and hand Details: vascular exam Details: radial pulse present Psych: Mental Status: mental status grossly normal Affect: normal affect Thought process: Normal thought process present Course Course Course Narrative: RME performed by Jenni Yan PA-C. Patient is a 53 year old assigned male at presenting to the emergency department with a left shoulder pain. Patient states that he fell down some stairs and now his left shoulder hurts. Patient denies any loss of consciousness or head strike with the incident. Detailed physical exam and review of systems are deferred to the analysis internship. Imaging ordered. Patient placed back in the waiting room pending room availability and results. Medications Administered Discontinued Medications Generic Name Dose Route Start Last Admin Trade Name Freq PRN Reason Stop Dose Admin Ketorolac Tromethamine 30 mg 04/05/24 14:43 04/05/24 14:53 Ketorolac Tromethamine 30 Mg/Ml Vial IM 04/05/24 14:44 30 mg ONCE ONE Administration Medical Decision Making Medical Decision Making [facility] Narrative: Patient is a 53-year-old male with history of drug abuse and dependence presenting to the emergency department with complaint left shoulder pain after a fall down 4-5 stairs at home today. On exam patient is awake, A+Ox3, VS WNL, afebrile, normal neurological exam without focal deficits, physical exam findings as above. Given reported symptoms and physical exam findings, initial differential includes left shoulder contusion versus sprain versus fracture/dislocation. X-ray left shoulder notable for acute displaced fracture of mid 3rd of left clavicle. My interpretation is in agreement with the radiologist's interpretation. No tenting of skin, +CMS distal left arm. Case discussed with janina Warner who is in agreement with placing patient's left arm in a sling and having him follow-up with orthopedics outpatient. Advised patient to alternate Tylenol and ibuprofen and keep arm in sling until advised otherwise by orthopedics. Return precautions discussed. Patient verbalized understanding of and agreement with plan. Assessment, results, return precautions and plan discussed at bedside with in-person zipper setter. Differential Diagnosis Differential Diagnoses: The differential diagnosis associated with the presentation includes As per [facility] Consult Healthcare Provider Management of the patient was discussed with: Soldering Machine Operator (janina Warner) Independent Interpretation I performed an independent interpretation of an: Plain X-Ray Interpretation: acute displaced fracture of mid third of left clavicle Radiology Impression Discussion of test interpretation with radiology: I have reviewed the radiologist's reading. Radiologist Impression: XR/XR shoulder LT min 2V IMPRESSION: * Acute, displaced fracture of the mid third of the left clavicle. * Chronic severe osteoarthritis of the glenohumeral joint. External Record Review External record reviewed: Inpatient record, Office record and Outpatient record Discharge Plan Discharge Clinical Impression: Closed fracture of left clavicle Patient Disposition: Home, Self-Care Instructions: Clavicle Fracture (ED), How to Use a Sling (ED) Additional Instructions: You have been evaluated in the emergency department today for left shoulder pain. Your x-ray showed a fracture of your left clavicle (collarbone). We have provided a sling for you to use while your clavicle heals. You should keep the sling on until you follow up with orthopedics. CALL THEIR OFFICE TOMORROW TO SCHEDULE A FOLLOW UP APPOINTMENT. Please rest and ice your collarbone, and avoid use of left arm until directed otherwise by orthopedics. We recommend you take 600mg ibuprofen every 6 hours or 650mg Tylenol every 6 hours as needed for pain. If Needed you can alternate these medications as they take 1 medication every 3 hours. For instance at noon take ibuprofen, then at 3:00 p.m. take Tylenol, then at 6:00 p.m. take ibuprofen. Please schedule an appointment for follow-up with your primary care provider this week. Return to the emergency department if you experience worsening pain, numbness, tingling, change of color in your arm, or any other concerning symptoms. Prescriptions: No Action levofloxacin 750 mg Tablet 750 mg PO Q24H Qty: 41 0RF amoxicillin-pot clavulanate [Augmentin] 875-125 mg tablet 1 tab PO Q12H 10 Days Qty: 20 0RF erythromycin 5 mg/gram (0.5 %) ointment 0.5 inch ophthalmic (eye) Q4H 7 Days Qty: 1 0RF amoxicillin-pot clavulanate [Augmentin] 875-125 mg tablet 1 tab PO Q12H 10 Days Qty: 20 0RF doxycycline monohydrate 100 mg tablet 100 mg PO BID Qty: 20 0RF ciprofloxacin-dexamethasone 0.3-0.1 % drops,suspension 4 drp otic (ear) left BID 7 Days Qty: 7.5 0RF ciprofloxacin HCl 500 mg tablet 500 mg PO BID Qty: 20 0RF ibuprofen 600 mg tablet 600 mg PO Q8H PRN (Reason: fever or pain) Qty: 20 0RF doxycycline hyclate 100 mg tablet 100 mg PO Q12H 7 Days Qty: 14 0RF cephalexin 500 mg capsule 500 mg PO QID 7 Days Qty: 28 0RF acetaminophen [Tylenol Extra Strength] 500 mg tablet 1,000 mg PO Q6H PRN (Reason: fever or pain) Qty: 20 0RF ibuprofen 400 mg tablet 400 mg PO TID PRN (Reason: fever or pain) Qty: 30 0RF Referrals: [facility] [place] Orthopedic Surgeons [Provider Group] Print Language: Bots[place]an
[2024-04-05] MEDS: Ketorolac Tromethamine 30 MG/ML VIAL IM (14:53)
[2024-04-05 15:32] VITALS: BP 126/68; PULSE 68; RESP 18; TEMP 37; O2SAT 97
== END 2024-04-05 15:36 | disposition home or self-care (01) ==
PROVIDERS: Emergency Provider Emergency Medicine
DX: S42.002A Fracture of unspecified part of left clavicle, initial encounter for closed fracture (principal); M25.512 Pain in left shoulder; W10.9XXA Fall (on) (from) unspecified stairs and steps, initial encounter; Y93.9 Activity, unspecified; Y92.008 Other place in unspecified non-institutional (private) residence as the place of occurrence of the external cause; Y99.8 Other external cause status
CPT/HCPCS: 73030; 96372; 99283; 99284; J1885

== ENCOUNTER 2024-04-19 15:15 | Outpatient (REF) | payer MEDICAID, SELFPAY | END 2024-04-19 15:16 | disposition home or self-care (01) | LOC: HO.HOSX 15:15 | DX: Z13.89 Encounter for screening for other disorder (principal) ==

== ENCOUNTER 2024-04-22 09:57 | Outpatient (REF) | payer MEDICAID, SELFPAY ==
--- NOTE | ~2024-04-22 | XR_ITS ---
EXAMINATION: XR CLAVICLE, LEFT CLINICAL INFORMATION: Clavicle fracture COMPARISON: Radiographs 04/05/2024 TECHNIQUE: Two views of the left clavicle. FINDINGS: No change in the appearance or alignment of the overriding mid clavicle fracture. No osseous bridging. Advanced left shoulder arthrosis. XR/XR clavicle LT IMPRESSION: No change in the appearance or alignment of the overriding mid clavicle fracture. No osseous bridging.
== END 2024-04-22 09:58 | disposition home or self-care (01) ==
LOC: HO.HOSX 09:57
DX: S42.022A Displaced fracture of shaft of left clavicle, initial encounter for closed fracture (principal); M89.8X1 Other specified disorders of bone, shoulder; W10.9XXA Fall (on) (from) unspecified stairs and steps, initial encounter; Y93.9 Activity, unspecified; Y92.9 Unspecified place or not applicable; Y99.9 Unspecified external cause status
CPT/HCPCS: 73000; 99202

== ENCOUNTER 2024-04-22 09:57 | Outpatient (AMB) | payer MEDICAID, SELFPAY ==
--- NOTE | 2024-04-22 08:42 | A.OFFVIS_ITS ---
Vital Signs 04/22/24 10:14 Height 5 ft 9 in Weight 215 lb BMI 31.7 Handedness Right Intake Visit Reasons: DEVELOPMENT ARCHITECT-left clavicle fx Intake Note: Camilo is a 53 year old right hand dominant male who presents today as a new patient for a left clavicle fracture. Patient reports he fell down 4-5 flights of stairs. He was seen in [facility] on 04/05/25 for this injury where they provided him with a sling to utilize until his follow up with orthopedics. Currently he is feeling a bit better but he is unable to move his arm up. Denies numbness and tingling in his arm/hand. He finds mild relief when taking Tylenol. 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 At the time, the patient reported that he fell down 4-5 stairs at home, and began experiencing left shoulder pain at that time. X-rays revealed a minimally displaced left clavicle fracture. Patient was placed in a sling in the ED. today, patient reports that he is feeling well, and is only experiencing minor pain at the fracture site at this time. Patient reports difficulty with overhead motion. Patient also expresses concern that this fracture may affect the stability of his glenohumeral joint, as he has a history of glenohumeral di slocation. [facility] Medical History Patient denies significant medical history Surgical History History of colonoscopy Family History Father History of cancer Mother History of high blood pressure Social History (Updated 04/22/24 @ 10:14 by Kofi Feliz) Household Members: Family Housing: House Unable to assess alcohol history related to: Unknown Alcohol intake: never Patient Tobacco Use Status: Current everyday Tobacco user Cigarette Packs Per Day: 0.5 Cigarettes Per Day: 10.0 Substance Use Type: Heroin service: No Current occupational status: employed Current occupation: [employer], right hand dominant Review of Systems Const All systems reviewed & are unremarkable except as noted in HPI and below Physical Exam Vital Signs: BMI result Body Mass Index 31.7 Const Other: Patient is alert, oriented, cooperative, and in no acute distress HEENT Head: Yes normocephalic and Yes atraumatic Resp Effort & Inspection: normal respiratory effort and able to speak in complete sentences Cardio Jugular venous distension: no JVD Neuro General: gait normal Cognition (Neuro): normal cognition Extrem Other: Visible and palpable bump at the fracture site over the left clavicle. No laceration or abrasion at or around the fracture site, no skin tenting Mild edema at the site of the fracture, no erythema or ecchymosis Patient reports mild tenderness to palpation at the fracture site Flexion and extension at the elbow full and intact Patient is able to pronate and supinate the left hand without any difficulty Full and intact range of motion at the left wrist and left fingers Normal sensation Capillary refill brisk Psych Appearance: grossly normal Mental Status: mental status grossly normal Office Procedures Fracture Care Details: Closed,displaced left clavicle fracture, Fracture Billing Code: Fracture Billing Code Results Reviewed Results Reviewed: X-rays obtained in the office today and independently reviewed by me, Alon Hein PA-C, demonstrate displaced left clavicle shaft fracture, with minimal change from previous x-rays on 04/05/2024. Assessment & Plan Assessment & Plan (1) Closed fracture of left clavicle: Code(s): S42.002A - Fracture of unspecified part of left clavicle, initial encounter for closed fracture Category: Medical Qualifiers: Encounter type: initial encounter Clavicle location: shaft Fracture alignment: displaced Qualified Code(s): S42.022A - Displaced fracture of shaft of left clavicle, initial encounter for closed fracture Plan 1. Left clavicle fracture, displaced Date of injury 04/05/2024 At this time, surgical intervention is not indicated in this patient, so fracture will be treated conservatively Patient is advised to avoid any overhead motion with his left shoulder, and is told to restrict any weight in his left hand to 2 lb or less Patient is told he can continue to wear sling for comfort, but it is not necessary to be in it at all times Patient encouraged to continue range of motion in the fingers, wrist, and elbow to avoid stiffness Patient is also assured that this fracture should not lead to increased risk of repeat left glenohumeral joint dislocation Patient will follow-up in 2 weeks for repeat x-rays to assess healing, sooner with any acute concerns Orders: Orders XR clavicle LT Today M89.8X1 - Other specified disorders of bone, shoulder Coding Level of Care Code New Pt Level 3 (56846) Diagnoses Closed displaced fracture of shaft of left clavicle, initial encounter S42.022A Encounter type: initial encounter Clavicle location: shaft Fracture alignment: displaced CPT Codes Fracture Care - Fracture Billing Code: Fracture Billing Code ([id number])
[2024-04-22 10:14] VITALS: BMI 31.7
== END 2024-04-22 11:01 | disposition home or self-care (01) ==
DX: S42.022A Displaced fracture of shaft of left clavicle, initial encounter for closed fracture (principal)
CPT/HCPCS: 99203

== ENCOUNTER 2024-05-06 09:10 | Outpatient (REF) | payer MEDICAID, SELFPAY | END 2024-05-06 09:11 | disposition home or self-care (01) | LOC: HO.HOSX 09:10 | DX: Z13.89 Encounter for screening for other disorder (principal) ==

== ENCOUNTER 2024-05-31 15:24 | Outpatient (REF) | payer MEDICAID, SELFPAY ==
[2024-05-31 16:05] LABS: MANUAL DIFF FLAG NO
[2024-05-31 16:13] LABS: Basophils Percent Auto 0.2 % (0-2); Eosinophils Absolute Auto 0.1 X10*3/uL (0.0-0.4); Eosinophils Percent Auto 0.7 % (0-4); Hematocrit 39.1 % (42.0-52.0); Hemoglobin 13.8 g/dl (14.0-18.0); Imm Gran Abs Auto 0.05 X10*3/uL (0.00-0.03); Imm Gran Pct Auto 0.4 % (0.0-0.4); Lymphocytes Absolute Auto 1.3 X10*3/uL (1.2-4.9); Lymphocytes Percent Auto 11.3 % (20-40); Mean Corpuscular HGB Conc 35.3 g/dl (31.0-36.0); Mean Corpuscular Hemoglobin 29.7 pg (27.0-33.0); Mean Corpuscular Volume 84.1 fL (80.0-98.0); Mean Platelet Volume 10.3 fL (9.4-12.4); Monocytes Absolute Auto 0.9 X10*3/uL (0.1-1.2); Monocytes Percent Auto 7.6 % (2-11); Neutrophils Absolute Auto 9.1 x10*3/uL (2.0-8.3); Neutrophils Percent Auto 79.8 % (45-73); Platelet Count 239 X10*3/uL (160-400); Red Blood Count 4.65 X10*6/uL (4.60-5.80); Red Cell Distribution Width 12.8 % (11.0-16.0); White Blood Count 11.4 X10*3/uL (4.8-10.8)
[2024-05-31 16:38] LABS: Estimated Average Glucose 97 mg/dL
[2024-05-31 16:45] LABS: Alanine Aminotransferase 11 U/L (0-40); Albumin Level 4.6 g/dL (3.5-5.0); Alkaline Phosphatase 84 U/L (39-117); Anion Gap 13 (12-20); Aspartate Amino Transferase 25 U/L (5-37); Bilirubin Total 2.7 mg/dL (0.0-1.0); Blood Urea Nitrogen 24 mg/dL (9-16); Calcium 9.3 mg/dL (8.4-10.2); Carbon Dioxide 26 mmol/L (22-29); Chloride 102 mmol/L (96-108); Cholesterol 134 mg/dL (<200); Estimated Glomerular Filt Rate > 60; Glucose Random 76 mg/dL (60-115); HDL Cholesterol 57 mg/dL (>40); LDL Cholesterol Calculated 64 mg/dL (<100); Potassium 3.8 mmol/L (3.3-5.1); Sodium 137 mmol/L (135-145); Total Protein 7.9 g/dL (6.5-8.0); Triglycerides 67 mg/dL (<150)
[2024-05-31 18:45] LABS: Reflex LDLD? No
[2024-06-01 04:36] LABS: HIV AB/AG Nonreactive (Nonreactive); HIV Num 1 0.05 S/CO (0.00-0.99)
[2024-06-03 13:23] LABS: RPR Rapid Plasma Reagin NON-REACTIVE (NON-REACTIVE)
[2024-06-03 14:49] LABS: HCV Log PCR <1.18 NOT DETECTED Log IU/mL (NOT DETECTED); HepC Viral Load <15 NOT DETECTED IU/mL (NOT DETECTED)
== END 2024-05-31 15:25 | disposition home or self-care (01) ==
LOC: HO.HHCL 15:24
PROVIDERS: Visit Provider Internal Medicine
DX: F19.10 Other psychoactive substance abuse, uncomplicated (principal)
CPT/HCPCS: 36415; 80053; 80061; 83036; 85025; 86592; 87389; 87522

== ENCOUNTER 2024-07-02 15:54 | Emergency (ER) | payer MEDICAID, SELFPAY ==
--- NOTE | ~2024-07-02 | XR_ITS ---
EXAMINATION: XR HAND, RIGHT CLINICAL INFORMATION: Needle enhancement. COMPARISON: None available. TECHNIQUE: PA, lateral, and oblique views of the right hand. FINDINGS: Examination demonstrates an approximately 2.0 cm in length, a needle-shaped metallic foreign body in the soft tissues between the first and second metatarsal bones. There may be associated soft tissue swelling. No other radiopaque foreign body is identified. Suspect deformity of the first proximal phalanx, possibly related to prior trauma. Question small osteochondral defect at the base of the first proximal phalanx. Mild degenerative change of the first MCP joint. The joint spaces otherwise appear maintained. Benign-appearing, well-circumscribed juxta articular erosion at the lateral aspect of the base of the second proximal phalanx. Lytic defects involving the ed of the second and third distal phalanges. No acute fracture or dislocation identified. Bony mineralization appears preserved. XR/XR hand RT min 3V IMPRESSION: Findings as above. Electronically signed by: Franki Will MD 07/02/2024 05:36 PM EDT
--- NOTE | ~2024-07-02 | XR_ITS ---
EXAMINATION: XR CHEST CLINICAL INFORMATION: Right lung pain. COMPARISON: October 16, 2021. TECHNIQUE: 2 views of the chest were obtained. FINDINGS: No acute radiographic finding. Suspect approximately 3.7 cm left lung nodule is similar compared with October 16, 2021. CT scan with intravenous contrast performed on a nonemergent basis may be of use for further evaluation if clinically indicated. No acute infiltrate, effusion, or pneumothorax is seen. Multiple old, healed, posterior lateral right rib fractures. Severe degenerative changes of the left shoulder. Mild degenerative changes of the spine. The heart appears normal in size. No adenopathy is seen. The mediastinum, diaphragm, and soft tissues appear unremarkable. XR/XR chest 2V IMPRESSION: Findings as above. Electronically signed by: Franki Will MD 07/02/2024 05:39 PM EDT
[2024-07-02 15:58] VITALS: BP 159/100; PULSE 79; RESP 16; TEMP 36.4; O2SAT 99; BMI 33.8
--- NOTE | 2024-07-02 15:58 | ED_ITS ---
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 ? Patient states that he was injecting into his right hand between his 1st and 2nd fingers yesterday. He states that the needle broke off and is lodged in his hand He reports that he tried to remove it himself but ?I just pushed it deeper. ? He denies any fevers, chills. Patient has no other complaints or concerns at this time. At the time my evaluation, the patient appears well, he is not diaphoretic as described by triage documentation Related Data Previous Rx's ?Medication ?Instructions ?Recorded levofloxacin 750 mg tablet 750 mg PO Q24H #41 tabs 10/17/20 amoxicillin 875 mg-potassium 1 tab PO Q12H 10 days #20 tabs 01/11/21 clavulanate 125 mg tablet (Augmentin) erythromycin 5 mg/gram (0.5 %) eye 0.5 inch ophthalmic (eye) Q4H 7 01/11/21 ointment days #1 g amoxicillin 875 mg-potassium 1 tab PO Q12H 10 days #20 tabs 03/26/21 clavulanate 125 mg tablet (Augmentin) doxycycline monohydrate 100 mg 100 mg PO BID #20 tabs 06/22/21 tablet ciprofloxacin 0.3 %-dexamethasone 4 drp otic (ear) left BID 7 days 11/19/22 0.1 % ear drops,suspension #7.5 mL ciprofloxacin HCl 500 mg tablet 500 mg PO BID #20 tabs 11/19/22 ibuprofen 600 mg tablet 600 mg PO Q8H PRN fever or pain 11/19/22 #20 tabs acetaminophen 500 mg tablet 1,000 mg (2 x 500 mg) PO Q6H PRN 08/18/23 (Tylenol Extra Strength) fever or pain #20 tabs cephalexin 500 mg capsule 500 mg PO QID 7 days #28 caps 08/18/23 doxycycline hyclate 100 mg tablet 100 mg PO Q12H 7 days #14 tabs 08/18/23 ibuprofen 400 mg tablet 400 mg PO TID PRN fever or pain 08/18/23 #30 tabs cephalexin 500 mg capsule 500 mg PO QID #28 caps 07/02/24 Allergies Allergy/AdvReac Type Severity Reaction Status Date / Time No Known Allergies Allergy Verified 07/02/24 16:01 [No Known Allergies*] Review of Systems 2 Constitutional: Constitutional: Denies body ache(s), Denies chills and Denies fever(s) ENT: Denies vertigo and Denies dizziness Cardiovascular: Cardiovascular: Denies chest pain and Denies dyspnea Respiratory: Respiratory: Denies cough and Denies dyspnea Gastrointestinal: Gastrointestinal: Denies abdominal pain, Denies nausea and Denies vomiting Musculoskeletal: Musculoskeletal: Denies back pain and Denies arthralgias Integumentary/Breasts: Skin/Breast: Reports erythema and Reports wounds Neurologic: Denies vertigo and Denies dizziness [facility] Past Medical History Medical History Patient denies significant medical history Surgical History History of colonoscopy Family History Family History Father History of cancer Mother History of high blood pressure Social History Social History (Updated 04/22/24 @ 10:14 by Kofi Feliz) Household Members: Family Housing: House Unable to assess alcohol history related to: Unknown Alcohol intake: never Patient Tobacco Use Status: Current everyday Tobacco user Cigarette Packs Per Day: 0.5 Cigarettes Per Day: 10.0 Smoked in Last 30 Days: Yes Use of substances other than those prescribed or required for medical reasons: Yes Substance Use Type: IV Drugs and Opiates Substance Use Frequency: Chronic Longstanding Last Used Substance: Days (ago) Any prior treatment program specific to substance use: Yes Advance Directives: No Advance Directives Information Provided: No service: No Current occupational status: employed Current occupation: [employer], right hand dominant Physical Exam 2 Vital Signs: Vital Signs: Last Vital Signs Temp 98.6 F 07/02/24 19:57 Pulse 61 07/02/24 19:57 Resp 16 07/02/24 19:57 BP 147/91 H 07/02/24 19:57 Pulse Ox 98 07/02/24 19:57 O2 Del Method Room Air 07/02/24 19:57 BMI result Body Mass Index 33.8 Const: General: healthy appearing, comfortable, no acute distress, alert and awake Nutritional Appearance: well nourished Orientation/consciousness: p atient oriented x3 HEENT: Head: Yes normocephalic and Yes atraumatic Eyes: Eyelids: Yes eyelids normal Conjunctivae: conjunctivae normal S clerae: sclerae normal Corneas: corneas normal Pupils: Equal, round and reactive pupils present EOM: EOMs intact bilaterally Neck: Neck: Yes full ROM Resp: Effort & Inspection: normal respiratory effort, able to speak in complete sentences and not labored Skin: Other: Patient has a puncture wound to the web spacing in between the 1st and 2nd metatarsals. There is no obvious foreign body visible from the puncture wound. There does appear to be a linear foreign body palpable under the skin. General skin exam: elasticity normal Neuro: General: patient oriented x3 Cranial nerves: Yes Equal, round and reactive pupils present and Yes Bilaterally intact EOM present Cognition (Neuro): normal cognition Extrem: Other: Full range of motion with flexion-extension of all fingers of the right hand as well as opposition of the thumb. Course Course Course Narrative: This is a Rapid Medical Examination (RME) performed by Marta Fraire PA-C in triage. Full HPI, ROS, assessment and treatment plan per primary provider in the Main ED. 54 yo male with history of IVDA who presents to the ER for evaluation of a needle stuck in his right hand that occurred yesterday when he was using IV drugs. Arrives to the ER drenched in sweat [place] the park. no SOB or chest pain. denies ETOH use and denies drug use today. also endorses right flank pain every times he uses drugs for the last 2 years, feels like lung pain. Plan: EKG, XR hand, labs Medical Decision Making Medical Decision Making MDM Narrative: 54-year-old male presents for evaluation of foreign body in his right hand. X- ray confirmed foreign body. It appears somewhat deep on exam. I am unable to visualize the foreign body. 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 We will treat with cephalexin for prophylaxis and he will be referred to hand surgery for potential removal of the needle. The x-ray shows possible lytic lesions to the distal 2nd and 3rd phalanx. 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 There is no evidence of active osteomyelitis, no erythema or edema to the right hand. Differential Diagnosis Differential Diagnoses: The differential diagnosis associated with the presentation includes Foreign body Cellulitis Substance abuse Abscess Admission/Observation Consideration of admission/observation: Escalation of care including admission/observation considered Lab Data MDM Lab Attestation statement: I reviewed the patient's lab results. No leukocytosis or anemia. Normal platelet count. No electrolyte abnormalities 07/02/24 16:57 07/02/24 16:57 Labs: Lab Results 07/02/24 07/02/24 Range/Units 16:57 17:02 WBC 6.4 (4.8-10.8) X10*3/uL RBC 5.23 (4.60-5.80) X10*6/uL Hgb 15.5 (14.0-18.0) g/dl Hct 44.2 (42.0-52.0) % MCV 84.5 (80.0-98.0) fL MCH 29.6 (27.0-33.0) pg MCHC 35.1 (31.0-36.0) g/dl RDW 12.4 (11.0-16.0) % Plt Count 229 (160-400) X10*3/uL MPV 10.1 (9.4-12.4) fL Immature Gran % (Auto) 0.3 (0.0-0.4) % Neut % (Auto) 64.5 (45-73) % Lymph % (Auto) 22.2 (20-40) % Taylor % (Auto) 8.3 (2-11) % Eos % (Auto) 4.2 H (0-4) % Baso % (Auto) 0.5 (0-2) % Lymph # (Auto) 1.4 (1.2-4.9) X10*3/uL Taylor # (Auto) 0.5 (0.1-1.2) X10*3/uL Eos # (Auto) 0.3 (0.0-0.4) X10*3/uL Baso # (Auto) 0.0 (0.0-0.2) X10*3/uL Abs Immat Gran (auto) 0.02 (0.00-0.03) X10*3/uL Absolute Neuts (auto) 4.1 (2.0-8.3) x10*3/uL Absolute Nucleated RBC 0.000 (0.0-0.012) X10*3/uL Nucleated RBC % (auto) 0.0 (0.0-0.2) /100WBC ESR 13 (0-15) MM/HR Sodium 144 (135-145) mmol/L Potassium 4.4 (3.3-5.1) mmol/L Chloride 107 (96-108) mmol/L Carbon Dioxide 28 (22-29) mmol/L Anion Gap 13 (12-20) BUN 24 H (9-16) mg/dL Creatinine 0.98 (0.5-1.4) mg/dL Estim Creat Clear Calc 101.1 Estimated GFR > 60 Random Glucose 140 H (60-115) mg/dL Calcium 9.7 (8.4-10.2) mg/dL Magnesium 2.1 (1.6-2.6) mg/dL Total Bilirubin 1.2 H (0.0-1.0) mg/dL Direct Bilirubin 0.4 (0.0-0.5) mg/dL AST 25 (5-37) U/L ALT 10 (0-40) U/L Alkaline Phosphatase 82 (39-117) U/L C-Reactive Protein 1.33 H (< or = 0.50) mg/dL Total Protein 7.7 (6.5-8.0) g/dL Albumin 4.4 (3.5-5.0) g/dL Urine Color Dark Yellow Urine Appearance Clear Urine pH 5.5 (5.0-9.0) Ur Specific [place] >= 1.030 H (1.005-1.025) Urine Protein Negative (Neg-Trace) mg/dL Urine Glucose (UA) Negative (Negative) mg/dL Urine Ketones Trace (Negative) mg/dL Urine Blood Negative (Negative) Urine Nitrite Negative (Negative) Ur Leukocyte Esterase Negative (Negative) Urine Opiates Screen POSITIVE H (Not Detect) Ur Buprenorphine Scrn Not Detected (Not Detect) ng/mL Ur Oxycodone Screen Not Detected (Not Detect) ng/mL Urine Methadone Screen Not Detected (Not Detect) ng/mL Urine Fentanyl Screen POSITIVE H (Not Detect) Ur Barbiturates Screen Not Detected (Not Detect) Ur Phencyclidine Scrn Not Detected (Not Detect) Ur Amphetamines Screen Not Detected (Not Detect) U Benzodiazepines Scrn Not Detected (Not Detect) Urine Cocaine Screen POSITIVE H (Not Detect) U Marijuana (THC) Screen Not Detected (Not Detect) Ethyl Alcohol < 10 mg/dL Independent Interpretation I performed an independent interpretation of an: Plain X-Ray (Foreign body visible in between the right 1st and 2nd metatarsals) Radiology Impression Discussion of test interpretation with radiology: I have reviewed the radiologist's reading. Radiologist Impression: [place] [id number] XRay Report Signed Patient: Camilo Alejandre MR#: [id number] : 1970 Acct:[id number] Age/Sex: 54 / M ADM Date: 07/02/24 Loc: .ED Attending Dr: Ordering Physician: Doreen Fraire Date of Service: 07/02/24 Procedure(s): XR chest 2V Accession Number(s): [id number] cc: Physician,Unknown ; Doreen Fraire~ EXAMINATION: XR CHEST CLINICAL INFORMATION: Right lung pain. COMPARISON: October 16, 2021. TECHNIQUE: 2 views of the chest were obtained. FINDINGS: No acute radiographic finding. Suspect approximately 3.7 cm left lung nodule is similar compared with October 16, 2021. CT scan with intravenous contrast performed on a nonemergent basis may be of use for further evaluation if clinically indicated. No acute infiltrate, effusion, or pneumothorax is seen. Multiple old, healed, posterior lateral right rib fractures. Severe degenerative changes of the left shoulder. Mild degenerative changes of the spine. The heart appears normal in size. No adenopathy is seen. The mediastinum, diaphragm, and soft tissues appear unremarkable. XR/XR chest 2V IMPRESSION: Findings as above. Electronically signed by: Franki Will MD 07/02/2024 05:39 PM EDT Discharge Plan Discharge Clinical Impression: Foreign body (FB) in soft tissue Patient Disposition: Home, Self-Care Instructions: Soft Tissue Foreign Body (ED) Additional Instructions: Your x-ray does confirm that you have a foreign body in your right hand in between the 1st and 2nd fingers. It appears to be a bent needle Take cephalexin 4 times daily for the next week to prevent infection. Call orthopedic surgery, Dr. Colon office tomorrow. She is a hand specialist that we will be able to provide further evaluation management Return for new or worsening symptoms Prescriptions: New cephalexin 500 mg capsule 500 mg PO QID Qty: 28 0RF No Action levofloxacin 750 mg Tablet 750 mg PO Q24H Qty: 41 0RF amoxicillin-pot clavulanate [Augmentin] 875-125 mg tablet 1 tab PO Q12H 10 Days Qty: 20 0RF erythromycin 5 mg/gram (0.5 %) ointment 0.5 inch ophthalmic (eye) Q4H 7 Days Qty: 1 0RF amoxicillin-pot clavulanate [Augmentin] 875-125 mg tablet 1 tab PO Q12H 10 Days Qty: 20 0RF doxycycline monohydrate 100 mg tablet 100 mg PO BID Qty: 20 0RF ciprofloxacin-dexamethasone 0.3-0.1 % drops,suspension 4 drp otic (ear) left BID 7 Days Qty: 7.5 0RF ciprofloxacin HCl 500 mg tablet 500 mg PO BID Qty: 20 0RF ibuprofen 600 mg tablet 600 mg PO Q8H PRN (Reason: fever or pain) Qty: 20 0RF doxycycline hyclate 100 mg tablet 100 mg PO Q12H 7 Days Qty: 14 0RF cephalexin 500 mg capsule 500 mg PO QID 7 Days Qty: 28 0RF acetaminophen [Tylenol Extra Strength] 500 mg tablet 1,000 mg PO Q6H PRN (Reason: fever or pain) Qty: 20 0RF ibuprofen 400 mg tablet 400 mg PO TID PRN (Reason: fever or pain) Qty: 30 0RF Referrals: Kayce Colon MD [Physician] - (Foreign body (needle) in right hand.) Interventions: ED Discharge Assessment Last Done: 07/02/24 20:00 Print Language: [place]
--- NOTE | 2024-07-02 15:59 | ECG_ITS ---
Test Reason : DIAPHORESIS Blood Pressure : / mmHG Vent. Rate : 070 BPM Atrial Rate : 070 BPM P-R Int : 158 ms QRS Dur : 094 ms QT Int : 426 ms P-R-T Axes : 053 011 049 degrees QTc Int : 460 ms Normal sinus rhythm Normal ECG When compared with ECG of 16-OCT-2021 00:49, Nonspecific T wave abnormality no longer evident in Anterior leads Referred By: Doreen Fraire Electronically Signed By:CAROLINA RUSSO
[2024-07-02 17:08] LABS: MANUAL DIFF FLAG NO
[2024-07-02 17:15] LABS: Appearance Urine Clear; Color Urine Dark Yellow; Glucose Urine UA Negative (Negative); Leukocyte Esterase Urine Negative (Negative); Nitrite Urine Negative (Negative); PH 5.5 (5.0-9.0); Specific Gravity - Urine >= 1.030 (1.005-1.025); Urine Blood Negative (Negative); Urine Ketones Trace mg/dL (Negative); Urine Protein Negative (Neg-Trace)
[2024-07-02 17:18] LABS: Basophils Percent Auto 0.5 % (0-2); Eosinophils Absolute Auto 0.3 X10*3/uL (0.0-0.4); Eosinophils Percent Auto 4.2 % (0-4); Hematocrit 44.2 % (42.0-52.0); Hemoglobin 15.5 g/dl (14.0-18.0); Imm Gran Abs Auto 0.02 X10*3/uL (0.00-0.03); Imm Gran Pct Auto 0.3 % (0.0-0.4); Lymphocytes Absolute Auto 1.4 X10*3/uL (1.2-4.9); Lymphocytes Percent Auto 22.2 % (20-40); Mean Corpuscular HGB Conc 35.1 g/dl (31.0-36.0); Mean Corpuscular Hemoglobin 29.6 pg (27.0-33.0); Mean Corpuscular Volume 84.5 fL (80.0-98.0); Mean Platelet Volume 10.1 fL (9.4-12.4); Monocytes Absolute Auto 0.5 X10*3/uL (0.1-1.2); Monocytes Percent Auto 8.3 % (2-11); Neutrophils Absolute Auto 4.1 x10*3/uL (2.0-8.3); Neutrophils Percent Auto 64.5 % (45-73); Platelet Count 229 X10*3/uL (160-400); Red Blood Count 5.23 X10*6/uL (4.60-5.80); Red Cell Distribution Width 12.4 % (11.0-16.0); White Blood Count 6.4 X10*3/uL (4.8-10.8)
[2024-07-02 17:21] LABS: Amphetamine Screen Urine Not Detected (Not Detect); Barbiturates, Urine Not Detected (Not Detect); Benzodiazepines Screen Urine Not Detected (Not Detect); Buprenorphine Scr Not Detected (Not Detect); Cannabinoid Screen Urine Not Detected (Not Detect); Cocaine Screen Urine POSITIVE (Not Detect); Fentanyl, urine POSITIVE (Not Detect); Methadone Screen, Urine Not Detected (Not Detect); Opiate Screen Urine POSITIVE (Not Detect); Oxycodone Screen Urine Not Detected (Not Detect); Phencyclidine Screen Urine Not Detected (Not Detect)
[2024-07-02 17:43] LABS: Alanine Aminotransferase 10 U/L (0-40); Albumin Level 4.4 g/dL (3.5-5.0); Alkaline Phosphatase 82 U/L (39-117); Anion Gap 13 (12-20); Aspartate Amino Transferase 25 U/L (5-37); Bilirubin Direct 0.4 mg/dL (0.0-0.5); Bilirubin Total 1.2 mg/dL (0.0-1.0); Blood Urea Nitrogen 24 mg/dL (9-16); C Reactive Protein 1.33 mg/dL (< or = 0.50); Calcium 9.7 mg/dL (8.4-10.2); Carbon Dioxide 28 mmol/L (22-29); Chloride 107 mmol/L (96-108); Creatinine Clr Calc Pharmacy 101.1; Estimated Glomerular Filt Rate > 60; Ethanol < 10 mg/dL; Glucose Random 140 mg/dL (60-115); Magnesium 2.1 mg/dL (1.6-2.6); Potassium 4.4 mmol/L (3.3-5.1); Sodium 144 mmol/L (135-145); Total Protein 7.7 g/dL (6.5-8.0)
[2024-07-02 18:14] LABS: Erythrocyte Sedimentation Rate 13 MM/HR (0-15)
[2024-07-02 19:57] VITALS: BP 147/91; PULSE 61; RESP 16; TEMP 37; O2SAT 98
[2024-07-02 20:00] VITALS: BP 147/91; PULSE 61; RESP 16; TEMP 37; O2SAT 98
== END 2024-07-02 20:02 | disposition home or self-care (01) ==
PROVIDERS: Physician Assistant; Emergency Provider Emergency Medicine
DX: M60.241 Foreign body granuloma of soft tissue, not elsewhere classified, right hand (principal); F17.210 Nicotine dependence, cigarettes, uncomplicated; F11.10 Opioid abuse, uncomplicated; M79.641 Pain in right hand; R10.9 Unspecified abdominal pain; R61 Generalized hyperhidrosis; R07.1 Chest pain on breathing; Z79.899 Other long term (current) drug therapy; Z51.81 Encounter for therapeutic drug level monitoring
CPT/HCPCS: 36415; 71046; 73130; 80048; 80076; 80307; 81003; 83735; 85025; 85652; 86140; 93005; 99283; 99284

== ENCOUNTER 2024-07-18 16:16 | Emergency (ER) | payer MEDICAID, SELFPAY ==
--- NOTE | ~2024-07-18 | XR_ITS ---
EXAMINATION: XR HAND, RIGHT CLINICAL INFORMATION: Pain, fall, intravenous drug use with abscess. COMPARISON: Radiograph right hand 07/02/2024. TECHNIQUE: PA, lateral, and oblique views of the right hand. FINDINGS: Stable needle shaped metallic foreign body in the soft tissues between the first and second metacarpal bones. Diffuse soft tissue swelling with increased more focal swelling along the dorsal aspect of the hand on the lateral view. No acute fractures or dislocation. Unchanged chronic deformity of the proximal phalanx of the first digit. Stable juxtaarticular erosions at the base of the proximal phalanx of the first and second digits. Stable cortical irregularity with lucent changes at the tuft of the distal phalanges of the second and third digits. XR/XR hand RT min 3V IMPRESSION: Increased soft tissue swelling along the dorsal surface of the hand, otherwise no significant change compared to 07/02/2024. Electronically signed by: Roseline Zimmer MD 07/18/2024 07:23 PM EDT
[2024-07-18 17:15] VITALS: BP 130/95; PULSE 78; RESP 16; TEMP 37.1; O2SAT 98; BMI 28.3
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
--- NOTE | 2024-07-18 17:56 | MHC.EDTECH ---
iff draw, one set of cultures obtained and green gel.
[2024-07-18 18:24] LABS: Alanine Aminotransferase 8 U/L (0-40); Albumin Level 4.1 g/dL (3.5-5.0); Alkaline Phosphatase 73 U/L (39-117); Anion Gap 13 (12-20); Aspartate Amino Transferase 20 U/L (5-37); Bilirubin Direct 0.3 mg/dL (0.0-0.5); Bilirubin Total 0.8 mg/dL (0.0-1.0); Blood Urea Nitrogen 18 mg/dL (9-16); C Reactive Protein 3.02 mg/dL (< or = 0.50); Calcium 9.5 mg/dL (8.4-10.2); Carbon Dioxide 22 mmol/L (22-29); Chloride 108 mmol/L (96-108); Creatinine Clr Calc Pharmacy 94.2; Estimated Glomerular Filt Rate > 60; Glucose Random 120 mg/dL (60-115); Magnesium 2.2 mg/dL (1.6-2.6); Potassium 4.2 mmol/L (3.3-5.1); Sodium 139 mmol/L (135-145); Total Protein 7.7 g/dL (6.5-8.0)
[2024-07-18 21:38] VITALS: BP 141/92; PULSE 76; RESP 16; TEMP 36.8; O2SAT 96
[2024-07-18 21:50] VITALS: BP 122/90; PULSE 71; RESP 18; TEMP 36.8; O2SAT 100
[2024-07-18 22:06] LABS: MANUAL DIFF FLAG NO
[2024-07-18 22:13] LABS: Basophils Percent Auto 0.3 % (0-2); Eosinophils Absolute Auto 0.2 X10*3/uL (0.0-0.4); Eosinophils Percent Auto 2.7 % (0-4); Hematocrit 39.8 % (42.0-52.0); Hemoglobin 13.9 g/dl (14.0-18.0); Imm Gran Abs Auto 0.05 X10*3/uL (0.00-0.03); Imm Gran Pct Auto 0.6 % (0.0-0.4); Lymphocytes Percent Auto 22.2 % (20-40); Mean Corpuscular HGB Conc 34.9 g/dl (31.0-36.0); Mean Corpuscular Hemoglobin 29.4 pg (27.0-33.0); Mean Corpuscular Volume 84.3 fL (80.0-98.0); Mean Platelet Volume 10.4 fL (9.4-12.4); Monocytes Absolute Auto 0.8 X10*3/uL (0.1-1.2); Monocytes Percent Auto 8.5 % (2-11); Neutrophils Absolute Auto 5.8 x10*3/uL (2.0-8.3); Neutrophils Percent Auto 65.7 % (45-73); Platelet Count 271 X10*3/uL (160-400); Red Blood Count 4.72 X10*6/uL (4.60-5.80); Red Cell Distribution Width 12.5 % (11.0-16.0); White Blood Count 8.8 X10*3/uL (4.8-10.8)
[2024-07-18 23:00] LABS: Erythrocyte Sedimentation Rate 31 MM/HR (0-15)
[2024-07-18] MEDS: Doxycycline Monohydrate 100 MG CAPSULE PO (23:23)
[2024-07-18] MEDS: cephALEXin 500 MG CAPSULE PO (23:23)
[2024-07-18 23:30] VITALS: BP 122/90; PULSE 71; RESP 18; TEMP 36.8; O2SAT 100
== END 2024-07-18 23:30 | disposition home or self-care (01) ==
PROVIDERS: Physician Assistant; Emergency Provider Emergency Medicine
DX: L03.113 Cellulitis of right upper limb (principal); L02.413 Cutaneous abscess of right upper limb; F11.20 Opioid dependence, uncomplicated; F17.210 Nicotine dependence, cigarettes, uncomplicated; M79.641 Pain in right hand; Z79.899 Other long term (current) drug therapy
CPT/HCPCS: 36415; 73130; 80048; 80076; 83735; 85025; 85652; 86140; 87040; 99283

== ENCOUNTER 2024-08-15 17:50 | Emergency (ER) | payer MEDICAID, SELFPAY ==
[2024-08-15 17:57] VITALS: BP 192/168; PULSE 106; RESP 18; TEMP 36.9; O2SAT 99; BMI 36.6
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
== END 2024-08-15 21:11 | disposition left against medical advice (07) ==
PROVIDERS: Emergency Provider Emergency Medicine
DX: R07.81 Pleurodynia (principal); Z53.21 Procedure and treatment not carried out due to patient leaving prior to being seen by health care provider
CPT/HCPCS: 99281

== ENCOUNTER 2024-09-11 00:55 | Emergency (ER) | payer MEDICAID, SELFPAY ==
--- NOTE | ~2024-09-11 | CT_ITS ---
EXAMINATION: CT HEAD WITHOUT CONTRAST CT CERVICAL SPINE WITHOUT CONTRAST CLINICAL INFORMATION: Trauma. Pain. COMPARISON: None available. TECHNIQUE: Contiguous axial imaging was performed through the head and cervical spine without intravenous administration of contrast. Sagittal and coronal reformatted images also obtained. This CT examination was performed using dose optimization techniques as appropriate, variously including the following: *Automated exposure control *Adjustment of mA and/or kV according to patient size (this includes techniques or standardized protocols for targeted exams where dose is matched to indication/reason for exam; i.e. extremities or head) *Use of iterative reconstruction technique DLP: 1289 mGy-cm FINDINGS: CT head: The lateral, third and fourth ventricles are normally outlined. The cortical sulci and basal cisterns are normally outlined as well. There are bilateral basal ganglia hypodensities suggesting lacunar infarcts versus prominent prior vascular cyst on the left. There is no acute territorial defects, hemorrhage or midline shift. The extra-axial spaces are unremarkable. Calvarium/scalp: Intact. Maxillofacial sinuses and mastoids: Clear as visualized. Cervical spine: The alignment is normal. There is mild diffuse cervical disc degenerative change with loss of disc space, endplate change and mild posterior osteophytes associated with mild diffuse facet osteoarthritic hypertrophic change with multilevel minimal spinal canal and mild to moderate right C4-5 neuroforaminal narrowing and mild neuroforaminal narrowing at the remaining levels. No fracture is seen. The soft tissues are unremarkable. The visualized upper lung gallegos are clear. CT/CT head/brain wo IV con IMPRESSION: CT HEAD: No acute intracranial abnormality. CT CERVICAL SPINE: Mild diffuse cervical spondylosis and facet osteoarthritic change without evidence of acute injury. Electronically signed by: Antonio Warren MD 09/11/2024 06:16 AM [facility]
--- NOTE | ~2024-09-11 | CT_ITS ---
EXAMINATION: CT HEAD WITHOUT CONTRAST CT CERVICAL SPINE WITHOUT CONTRAST CLINICAL INFORMATION: Trauma. Pain. COMPARISON: None available. TECHNIQUE: Contiguous axial imaging was performed through the head and cervical spine without intravenous administration of contrast. Sagittal and coronal reformatted images also obtained. This CT examination was performed using dose optimization techniques as appropriate, variously including the following: *Automated exposure control *Adjustment of mA and/or kV according to patient size (this includes techniques or standardized protocols for targeted exams where dose is matched to indication/reason for exam; i.e. extremities or head) *Use of iterative reconstruction technique DLP: 1289 mGy-cm FINDINGS: CT head: The lateral, third and fourth ventricles are normally outlined. The cortical sulci and basal cisterns are normally outlined as well. There are bilateral basal ganglia hypodensities suggesting lacunar infarcts versus prominent prior vascular cyst on the left. There is no acute territorial defects, hemorrhage or midline shift. The extra-axial spaces are unremarkable. Calvarium/scalp: Intact. Maxillofacial sinuses and mastoids: Clear as visualized. Cervical spine: The alignment is normal. There is mild diffuse cervical disc degenerative change with loss of disc space, endplate change and mild posterior osteophytes associated with mild diffuse facet osteoarthritic hypertrophic change with multilevel minimal spinal canal and mild to moderate right C4-5 neuroforaminal narrowing and mild neuroforaminal narrowing at the remaining levels. No fracture is seen. The soft tissues are unremarkable. The visualized upper lung gallegos are clear. CT/CT cervical spine wo IV con IMPRESSION: CT HEAD: No acute intracranial abnormality. CT CERVICAL SPINE: Mild diffuse cervical spondylosis and facet osteoarthritic change without evidence of acute injury. Electronically signed by: Antonio Warren MD 09/11/2024 06:16 AM [facility]
[2024-09-11 01:04] VITALS: BP 133/84; PULSE 82; RESP 14; TEMP 37.3; O2SAT 96; BMI 32.4
--- NOTE | 2024-09-11 01:11 | ED.FALL ---
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 He is GCS 15. He states he has fallen sometimes in the past - could be related to his drug use. No other injuries reported. MD complaint: fall Onset (ago): minute(s) ([employer]) Fall from: down stairs (#) (3) Fall witnessed: no Place fall occurred: home Loss of consciousness: none Prolonged down time: no Symptoms prior to fall: none Context: tripped/slipped Location of injury: head Severity: mild Quality: dull Associated symptoms (after fall): denies Related Data Previous Rx's ?Medication ?Instructions ?Recorded levofloxacin 750 mg tablet 750 mg PO Q24H #41 tabs 10/17/20 amoxicillin 875 mg-potassium 1 tab PO Q12H 10 days #20 tabs 01/11/21 clavulanate 125 mg tablet (Augmentin) erythromycin 5 mg/gram (0.5 %) eye 0.5 inch ophthalmic (eye) Q4H 7 01/11/21 ointment days #1 g amoxicillin 875 mg-potassium 1 tab PO Q12H 10 days #20 tabs 03/26/21 clavulanate 125 mg tablet (Augmentin) doxycycline monohydrate 100 mg 100 mg PO BID #20 tabs 06/22/21 tablet ciprofloxacin 0.3 %-dexamethasone 4 drp otic (ear) left BID 7 days 11/19/22 0.1 % ear drops,suspension #7.5 mL ciprofloxacin HCl 500 mg tablet 500 mg PO BID #20 tabs 11/19/22 ibuprofen 600 mg tablet 600 mg PO Q8H PRN fever or pain 11/19/22 #20 tabs acetaminophen 500 mg tablet 1,000 mg (2 x 500 mg) PO Q6H PRN 08/18/23 (Tylenol Extra Strength) fever or pain #20 tabs cephalexin 500 mg capsule 500 mg PO QID 7 days #28 caps 08/18/23 doxycycline hyclate 100 mg tablet 100 mg PO Q12H 7 days #14 tabs 08/18/23 ibuprofen 400 mg tablet 400 mg PO TID PRN fever or pain 08/18/23 #30 tabs cephalexin 500 mg capsule 500 mg PO QID #28 caps 07/02/24 cephalexin 500 mg capsule 500 mg PO QID 7 days #28 caps 07/18/24 doxycycline hyclate 100 mg capsule 100 mg PO BID 7 days #14 caps 07/18/24 Allergies Allergy/AdvReac Type Severity Reaction Status Date / Time No Known Allergies Allergy Verified 09/11/24 01:06 [No Known Allergies*] Review of Systems Review of Systems: Constitutional : No Fever, No Chills, No Fatigue ENT/Mouth : No sore throat, No Rhinorrhea Eyes: No Eye Pain, No Swelling, No Redness Cardiovascular : No Chest Pain, No SOB, No Dyspnea on Exertion Respiratory : No Cough, No Sputum Gastrointestinal : No Nausea, No Vomiting, No Diarrhea, No abdominal Pain Genitourinary : No Dysuria, No Urinary Frequency, No Hematuria, Musculoskeletal : No joint pain, No Myalgias, No Joint Swelling Skin : No Skin Lesions, No rash, pos laceration Neuro : No Weakness, No Numbness, No Dizziness, positive Headache Psych : No Anxiety/Panic, No Depression All other systems reviewed and are negative [facility] Past Medical History Attestation statement: The following information was validated with the patient. Source: old records reviewed Medical History Drug abuse and dependence Foreign body (FB) in soft tissue Patient denies significant medical history Surgical History History of colonoscopy Family History Family History Father History of cancer Mother History of high blood pressure Social History Social History Household Members: Family Housing: House Unable to assess alcohol history related to: Unknown Alcohol intake: never Patient Tobacco Use Status: Current everyday Tobacco user Cigarette Packs Per Day: 0.5 Cigarettes Per Day: 10.0 Smoked in Last 30 Days: Yes Use of substances other than those prescribed or required for medical reasons: Yes Substance Use Type: Crack/Cocaine and Heroin Advance Directives: No Advance Directives Information Provided: Yes Do you have a plan to hurt others: No Plan service: No Current occupational status: employed Current occupation: [employer], right hand dominant Physical Exam Vital Signs: Vital Signs: Last Vital Signs Temp 99.1 F 09/11/24 01:04 Pulse 82 09/11/24 01:04 Resp 14 09/11/24 01:04 BP 133/84 09/11/24 01:04 Pulse Ox 96 09/11/24 01:04 O2 Del Method Room Air 09/11/24 01:04 BMI result Body Mass Index 32.4 Appearance: Alert. Oriented X3. No acute distress. Eyes: Pupils equal, round and reactive to light. 2mm ENT: Pharynx normal. R frontoparietal scalp linear abrasion 2cm with small area that is slightly deeper in the middle, no racoon eyes or phillips sign Neck: Normal inspection. Neck supple. CVS: Normal heart rate and rhythm. Pulses normal. Respiratory: No respiratory distress. Breath sounds normal. Abdomen: Soft and nontender. Skin: Skin warm and dry. Normal skin color. Normal skin turgor. Extremities: No lower extremity edema. No calf ttp Neuro: Oriented X 3. No motor deficit. No sensory deficit. GCS 15 Course Course Course Narrative: I rechecked his scalp wound that very small area that was open I was considering one staple but it is scabbed over and approximated no need for 1 staple Medical Decision Making Medical Decision Making MDM Narrative: 54 yo m alex with PMH of drug abuse, cellullitis not on blood thinners here with c/o mechanical fall no LOC got right up did use drugs earlier but he is GCS 15 at this time will need CT head/cspine. Given his story denies syncope/CP/SOB, denies any other injuries, denies LOC or prolonged downtime. Differential Diagnosis Differential Diagnoses: The differential diagnosis associated with the presentation includes drug use, head injury, laceration Admission/Observation Consideration of admission/observation: Escalation of care including admission/observation considered neg scans GCS 15 stable for DC Independent Interpretation I performed an independent interpretation of an: CT Scan (no trauma) Radiology Impression Discussion of test interpretation with radiology: I have reviewed the radiologist's reading. Independent Historian Clinical information obtained from an independent historian. History obtained from or confirmed by: EMS External Record Review External record reviewed: Inpatient record Discharge Plan Discharge Clinical Impression: Head injury Qualifiers: Encounter type: initial encounter Qualified Code(s): S09.90XA - Unspecified injury of head, initial encounter Laceration of scalp Qualifiers: Encounter type: initial encounter Qualified Code(s): S01.01XA - Laceration without foreign body of scalp, initial encounter Patient Disposition: Home, Self-Care Instructions: Laceration (ED), Head Injury (ED) Additional Instructions: return for any worsening symptoms - severe headache, confusion, vomiting okay to shower with laceration - monitor for redness, swelling, yellow drainage CT/CT cervical spine wo IV con IMPRESSION: CT HEAD: No acute intracranial abnormality. CT CERVICAL SPINE: Mild diffuse cervical spondylosis and facet osteoarthritic change without evidence of acute injury. Prescriptions: No Action levofloxacin 750 mg Tablet 750 mg PO Q24H Qty: 41 0RF amoxicillin-pot clavulanate [Augmentin] 875-125 mg tablet 1 tab PO Q12H 10 Days Qty: 20 0RF erythromycin 5 mg/gram (0.5 %) ointment 0.5 inch ophthalmic (eye) Q4H 7 Days Qty: 1 0RF amoxicillin-pot clavulanate [Augmentin] 875-125 mg tablet 1 tab PO Q12H 10 Days Qty: 20 0RF doxycycline monohydrate 100 mg tablet 100 mg PO BID Qty: 20 0RF ciprofloxacin-dexamethasone 0.3-0.1 % drops,suspension 4 drp otic (ear) left BID 7 Days Qty: 7.5 0RF ciprofloxacin HCl 500 mg tablet 500 mg PO BID Qty: 20 0RF ibuprofen 600 mg tablet 600 mg PO Q8H PRN (Reason: fever or pain) Qty: 20 0RF doxycycline hyclate 100 mg tablet 100 mg PO Q12H 7 Days Qty: 14 0RF cephalexin 500 mg capsule 500 mg PO QID 7 Days Qty: 28 0RF acetaminophen [Tylenol Extra Strength] 500 mg tablet 1,000 mg PO Q6H PRN (Reason: fever or pain) Qty: 20 0RF ibuprofen 400 mg tablet 400 mg PO TID PRN (Reason: fever or pain) Qty: 30 0RF cephalexin 500 mg capsule 500 mg PO QID Qty: 28 0RF cephalexin 500 mg capsule 500 mg PO QID 7 Days Qty: 28 0RF doxycycline hyclate 100 mg capsule 100 mg PO BID 7 Days Qty: 14 0RF Print Language: Vietnamese
[2024-09-11 06:00] VITALS: BP 106/63; PULSE 82; RESP 18; TEMP 36.6; O2SAT 98
[2024-09-11 06:54] VITALS: BP 106/63; PULSE 82; RESP 18; TEMP 36.6; O2SAT 98
== END 2024-09-11 06:55 | disposition home or self-care (01) ==
PROVIDERS: Emergency Provider Emergency Medicine; PCP Internal Medicine Geriatric Medicine
DX: S09.90XA Unspecified injury of head, initial encounter (principal); S01.01XA Laceration without foreign body of scalp, initial encounter; W10.8XXA Fall (on) (from) other stairs and steps, initial encounter; F19.10 Other psychoactive substance abuse, uncomplicated; F17.210 Nicotine dependence, cigarettes, uncomplicated; Y93.89 Activity, other specified; Y92.9 Unspecified place or not applicable; Y99.9 Unspecified external cause status
CPT/HCPCS: 70450; 72125; 99284

== ENCOUNTER 2024-09-19 09:30 | Emergency (ER) | payer MEDICAID, SELFPAY ==
[2024-09-19 09:55] VITALS: BP 110/58; PULSE 52; RESP 18; TEMP 36.5; O2SAT 96; BMI 31.0
--- NOTE | 2024-09-19 10:05 | ED_ITS ---
HPI - General Adult General Chief complaint: General Medical Stated complaint: FOUND PASSED OUT IN CAR,HEROIN/COCAINE USE,NO NARC Time Seen by Provider: 09/19/24 10:05 Source: patient, EMS and outbound sales representative (all interactions with this patient were facilitated with an [facility] yarn preparation supervisor) Mode of arrival: EMS Limitations: language barrier (all interactions with this patient were facilitated with an [facility] yarn preparation supervisor) History of Present Illness ED Provider: Jenni Yan PA-C HPI narrative: Patient is a 54 year old assigned male at with a history of polysubstance abuse / use presenting to the emergency department today after being found asleep in his car post the use of cocaine and heroin. Patient states that he was recently kicked out of his house by his and he used drugs including cocaine and heroin. Patient denies any dizziness, lightheadedness, abdominal pain, nausea, vomiting, fever, chills, blurry vision, double vision, loss of vision, chest pain, difficulty breathing, shortness of breath, back pain, night sweats, pain with urination, increased urinary frequency, increased urinary urgency, blood in his urine or stool, syncope or a near syncopal episode, recent trauma or falls, bowel incontinence, bladder incontinence, or any other complaints at this time. Relieving factors: none Exacerbating factors: none Associated symptoms: denies other symptoms Treatments prior to arrival: none Related Data Previous Rx's ?Medication ?Instructions ?Recorded levofloxacin 750 mg tablet 750 mg PO Q24H #41 tabs 10/17/20 amoxicillin 875 mg-potassium 1 tab PO Q12H 10 days #20 tabs 01/11/21 clavulanate 125 mg tablet (Augmentin) erythromycin 5 mg/gram (0.5 %) eye 0.5 inch ophthalmic (eye) Q4H 7 01/11/21 ointment days #1 g amoxicillin 875 mg-potassium 1 tab PO Q12H 10 days #20 tabs 03/26/21 clavulanate 125 mg tablet (Augmentin) doxycycline monohydrate 100 mg 100 mg PO BID #20 tabs 06/22/21 tablet ciprofloxacin 0.3 %-dexamethasone 4 drp otic (ear) left BID 7 days 11/19/22 0.1 % ear drops,suspension #7.5 mL ciprofloxacin HCl 500 mg tablet 500 mg PO BID #20 tabs 11/19/22 ibuprofen 600 mg tablet 600 mg PO Q8H PRN fever or pain 11/19/22 #20 tabs acetaminophen 500 mg tablet 1,000 mg (2 x 500 mg) PO Q6H PRN 08/18/23 (Tylenol Extra Strength) fever or pain #20 tabs cephalexin 500 mg capsule 500 mg PO QID 7 days #28 caps 08/18/23 doxycycline hyclate 100 mg tablet 100 mg PO Q12H 7 days #14 tabs 08/18/23 ibuprofen 400 mg tablet 400 mg PO TID PRN fever or pain 08/18/23 #30 tabs cephalexin 500 mg capsule 500 mg PO QID #28 caps 07/02/24 cephalexin 500 mg capsule 500 mg PO QID 7 days #28 caps 07/18/24 doxycycline hyclate 100 mg capsule 100 mg PO BID 7 days #14 caps 07/18/24 Allergies Allergy/AdvReac Type Severity Reaction Status Date / Time No Known Allergies Allergy Verified 09/19/24 09:57 [No Known Allergies*] Review of Systems Constitutional: Constitutional: Reports no additional constitutional complaints, Denies chills, Denies fever(s) and Denies night sweats Eyes: Eyes: Reports no additional eye complaints, Denies blurry vision, Denies change in vision, Denies diplopia, Denies eye discharge, Denies loss of vision and Denies eye pain ENT: Denies dizziness Cardiovascular: Cardiovascular: Reports no additional cardiovascular complaints, Denies chest pain, Denies lightheadedness, Denies Loss of Consciousness and Denies dyspnea Respiratory: Respiratory: Reports no additional respiratory complaints and Denies dyspnea Gastrointestinal: Gastrointestinal: Reports no additional gastrointestinal complaints, Denies abdominal pain, Denies melena, Denies hematochezia, Denies change in bowel habits and Denies change in stool character Genitourinary: Genitourinary: Reports no additional male genitourinary complaints, Denies hematuria, Denies oliguria, Denies difficulty urinating, Denies dysuria, Denies urinary frequency, Denies urinary hesitancy, Denies urinary incontinence and Denies urinary urgency Musculoskeletal: Musculoskeletal: Reports no additional musculoskeletal complaints, Denies numbness and Denies tingling Neurologic: Denies dizziness, Denies loss of vision, Denies numbness and Denies tingling Psychiatric: Psychiatric: Reports no additional psychiatric complaints Endocrine: Endocrine: Reports no additional endocrine complaints Hematologic/Lymphatic: Hematologic/Lymphatic: Reports no additional hematologic/lymphatic complaints Allergic/Immunologic: Allergic/Immunologic: Reports no additional allergic/immunologic complaints PMFSH Past Medical History Attestation statement: The following information was validated with the patient. Source: old records reviewed and nursing notes reviewed Medical History Foreign body (FB) in soft tissue Cellulitis Drug abuse and dependence Patient denies significant medical history Surgical History History of colonoscopy Family History Family History Father History of cancer Mother History of high blood pressure Social History Social History Household Members: Family Housing: House Unable to assess alcohol history related to: Unknown Alcohol intake: never Patient Tobacco Use Status: Current everyday Tobacco user Cigarette Packs Per Day: 0.5 Cigarettes Per Day: 10.0 Substance Use Type: Crack/Cocaine and Heroin Advance Directives: No Do you have a plan to hurt others: No Plan service: No Current occupational status: employed Current occupation: [employer], right hand dominant Physical Exam ED Vital Signs: Vital Signs - 24 hr 09/19/24 09:55 09/19/24 13:51 09/19/24 14:01 Temperature 97.7 F 97.7 F 97.7 F Pulse Rate 52 48 L 48 L Respiratory Rate 18 16 16 Blood Pressure 110/58 L 110/66 110/66 Pulse Oximetry 96 98 98 Oxygen Delivery Method Room Air Room Air Room Air BMI result Body Mass Index 31.0 Const General: cooperative, no acute distress, alert and awake Nutritional Appearance: well nourished Orientation/consciousness: patient oriented x3 Limitations: no limitations HENMT Head: Yes normal to inspection and Yes atraumatic Ears: hearing grossly normal bilaterally and external ears normal General nose exam: Normal external nose present, no nasal discharge noted and no epistaxis Face and sinus: Yes normal facial exam, No abrasion and No laceration Mouth: Normal oral and palatal mucosa present, no drooling and no muffled voice Eyes General: appearance normal, both eyes and all related structures Periorbital: periorbital findings normal Eyelids: Yes eyelids normal Conjunctivae: conjunctivae normal Pupils: Equal, round and reactive pupils present EOM: EOMs intact bilaterally Neck Neck: Yes normal visual inspection, Yes full ROM and Yes no lymphadenopathy Chest Chest palpation & inspection: normal inspection of the chest Resp Effort & Inspection: normal respiratory effort and able to speak in complete sentences GI Inspection: Yes normal to inspection Neuro General: patient oriented x3 and moves all extremities Cranial nerves: Yes Equal, round and reactive pupils present Cognition (Neuro): normal cognition Extrem General: Yes normal to inspection, Yes full ROM and Yes capillary refill normal Psych Appearance: grossly normal Mental Status: mental status grossly normal Affect: normal affect Attitude: cooperative Thought process: Normal thought process present Thought content: Normal thought content present Insight: Good insight present (Psych) Medications Administered Discontinued Medications Generic Name Dose Route Start Last Admin Trade Name Freq PRN Reason Stop Dose Admin Naloxone HCl 8 mg 09/19/24 13:29 09/19/24 14:00 Naloxone Hcl Nasal Take Home 4 Mg [place]ie NOSTRILALT 09/19/24 13:30 8 mg ONCE ONE Administration Medical Decision Making Medical Decision Making [facility] Narrative: Patient is a 54 year old assigned male at with a history of polysubstance abuse / use presenting to the emergency department today after being found asleep in his car post the use of cocaine and heroin. Patient's physical exam was unremarkable. Patient met with the addiction team and together they agreed the patient would self present to [facility] tomorrow (09/20/2024) morning. I explained my physical exam findings to the patient. I answered all questions asked by the patient. I stressed the importance of the patient taking his medication as directed (either prescribed or as the over the counter packaging recommends). I stressed the importance of the patient following up with his primary care provider. I stressed the importance of the patient returning to the emergency department immediately if he were to develop any dizziness, shortness of breath, difficulty breathing, chest pain, blurry vision, loss of vision, nausea, vomiting, abdominal pain, fever, chills, back pain, or any other complaints. Patient verbalized agreement and understanding with this treatment plan and discharge. Differential Diagnosis Differential Diagnoses: The differential diagnosis associated with the presentation includes Opiate abuse Opiate use Polysubstance abuse Admission/Observation Consideration of admission/observation: Escalation of care including admission/observation considered Patient would have been admitted to the hospital had his clinical presentation warranted hospital admission. Consult Healthcare Provider Management of the patient was discussed with: Truck Assembler (spoke to the addiction team as noted in the MDM Rationale portion of this note.) Independent Historian Clinical information obtained from an independent historian. History obtained from or confirmed by: EMS (EMS provided additional history and confirmed the history provided by the patient.) Discharge Plan Discharge Clinical Impression: Opioid use disorder Patient Disposition: Home, Self-Care Instructions: Opioid Use Disorder (ED) Additional Instructions: Please do not continue the use of illicit drugs. If you do continue to use illicit drugs, please do not use alone. Follow up with your primary care provider. Return to the emergency department immediately if your symptoms worsen or if you develop any dizziness, shortness of breath, difficulty breathing, chest pain, blurry vision, loss of vision, t[place]wn sea, vomiting, abdominal pain, fever, chills, back pain, or any other complaints. Please present to [facility] the morning of 09/20/2024. [facility]'s location: [address] [place] [address] Por favor, no sigas consumiendo drogas il?citas. Si sigues consumiendo drogas ilegales, no lo hagas solo. Consulte a [place] m?dico de cabecera. Vuelva al servicio de urgencias inmediatamente si mukul s?ntomas empeoran o si presenta mareos, falta de aliento, dificultad para respirar, dolor en el pecho, visi?n borrosa, p?rdida de visi?n, n?useas, v?mitos, dolor abdominal, fiebre, escalofr?os, dolor de espalda o cualquier otra molestia. Por favor, pres?ntese en [facility] la ma?nyasia del 09/20/2024. Ubicaci?n Mueller: [address] [place] [address] Prescriptions: No Action levofloxacin 750 mg Tablet 750 mg PO Q24H Qty: 41 0RF amoxicillin-pot clavulanate [Augmentin] 875-125 mg tablet 1 tab PO Q12H 10 Days Qty: 20 0RF erythromycin 5 mg/gram (0.5 %) ointment 0.5 inch ophthalmic (eye) Q4H 7 Days Qty: 1 0RF amoxicillin-pot clavulanate [Augmentin] 875-125 mg tablet 1 tab PO Q12H 10 Days Qty: 20 0RF doxycycline monohydrate 100 mg tablet 100 mg PO BID Qty: 20 0RF ciprofloxacin-dexamethasone 0.3-0.1 % drops,suspension 4 drp otic (ear) left BID 7 Days Qty: 7.5 0RF ciprofloxacin HCl 500 mg tablet 500 mg PO BID Qty: 20 0RF ibuprofen 600 mg tablet 600 mg PO Q8H PRN (Reason: fever or pain) Qty: 20 0RF doxycycline hyclate 100 mg tablet 100 mg PO Q12H 7 Days Qty: 14 0RF cephalexin 500 mg capsule 500 mg PO QID 7 Days Qty: 28 0RF acetaminophen [Tylenol Extra Strength] 500 mg tablet 1,000 mg PO Q6H PRN (Reason: fever or pain) Qty: 20 0RF ibuprofen 400 mg tablet 400 mg PO TID PRN (Reason: fever or pain) Qty: 30 0RF cephalexin 500 mg capsule 500 mg PO QID Qty: 28 0RF cephalexin 500 mg capsule 500 mg PO QID 7 Days Qty: 28 0RF doxycycline hyclate 100 mg capsule 100 mg PO BID 7 Days Qty: 14 0RF Referrals: [facility] Family Medicine [Provider Group] (Call to establish and follow up with a primary care provider. If you already have a primary care provider, please follow up with them.) [facility] [Provider Group] (Call to establish and follow up with a primary care provider. If you already have a primary care provider, please follow up with them.) [facility] [Provider Group] (Call to establish and follow up with a primary care provider. If you already have a primary care provider, please follow up with them.) Interventions: ED Discharge Assessment Last Done: 09/19/24 14:01 Discharge Date/Time: 09/19/24 14:02 Print Language: Ukrainian
[2024-09-19 13:51] VITALS: BP 110/66; PULSE 48; RESP 16; TEMP 36.5; O2SAT 98
[2024-09-19] MEDS: Naloxone HCl Nasal TAKE HOME 4 MG SPRAY 8 MG NOSTRILALT (14:00)
[2024-09-19 14:01] VITALS: BP 110/66; PULSE 48; RESP 16; TEMP 36.5; O2SAT 98
== END 2024-09-19 14:02 | disposition home or self-care (01) ==
PROVIDERS: Emergency Provider Student in an Organized Health Care Education/Training Program; PCP Internal Medicine Geriatric Medicine
DX: R40.4 Transient alteration of awareness (principal); T40.1X1A Poisoning by heroin, accidental (unintentional), initial encounter; F11.10 Opioid abuse, uncomplicated; Y92.9 Unspecified place or not applicable; F14.10 Cocaine abuse, uncomplicated; T40.5X1A Poisoning by cocaine, accidental (unintentional), initial encounter; F17.210 Nicotine dependence, cigarettes, uncomplicated; Z79.899 Other long term (current) drug therapy; Z71.51 Drug abuse counseling and surveillance of drug abuser
CPT/HCPCS: 99283; 99284; S9485

== ENCOUNTER 2024-09-19 20:04 | Emergency (ER) | payer MEDICAID, SELFPAY ==
[2024-09-19 20:11] VITALS: PULSE 59; O2SAT 97
[2024-09-19 20:16] VITALS: BP 114/73; PULSE 50; RESP 16; TEMP 36.7; O2SAT 94; BMI 34.5
--- NOTE | 2024-09-19 20:28 | ED_ITS ---
HPI - General Adult General Chief complaint: ETOH/Substance Use Stated complaint: heroine & cocaine use, no narcan given Time Seen by Provider: 09/19/24 20:25 Source: patient and EMS Mode of arrival: EMS Limitations: no limitations History of Present Illness HPI narrative: Patient is a 54-year-old male presents emergency department via EMS. He was found asleep and unresponsive in his car by PD. They were unable to wake him so they ultimately smashed the window and this will come up. He was not given any Narcan. Was evaluated in the emergency department earlier today for similar, admitting to having used heroin and cocaine, did not require Narcan at that time either. He offers no physical complaints at this time. Related Data Previous Rx's ?Medication ?Instructions ?Recorded levofloxacin 750 mg tablet 750 mg PO Q24H #41 tabs 10/17/20 amoxicillin 875 mg-potassium 1 tab PO Q12H 10 days #20 tabs 01/11/21 clavulanate 125 mg tablet (Augmentin) erythromycin 5 mg/gram (0.5 %) eye 0.5 inch ophthalmic (eye) Q4H 7 01/11/21 ointment days #1 g amoxicillin 875 mg-potassium 1 tab PO Q12H 10 days #20 tabs 03/26/21 clavulanate 125 mg tablet (Augmentin) doxycycline monohydrate 100 mg 100 mg PO BID #20 tabs 06/22/21 tablet ciprofloxacin 0.3 %-dexamethasone 4 drp otic (ear) left BID 7 days 11/19/22 0.1 % ear drops,suspension #7.5 mL ciprofloxacin HCl 500 mg tablet 500 mg PO BID #20 tabs 11/19/22 ibuprofen 600 mg tablet 600 mg PO Q8H PRN fever or pain 11/19/22 #20 tabs acetaminophen 500 mg tablet 1,000 mg (2 x 500 mg) PO Q6H PRN 08/18/23 (Tylenol Extra Strength) fever or pain #20 tabs cephalexin 500 mg capsule 500 mg PO QID 7 days #28 caps 08/18/23 doxycycline hyclate 100 mg tablet 100 mg PO Q12H 7 days #14 tabs 08/18/23 ibuprofen 400 mg tablet 400 mg PO TID PRN fever or pain 08/18/23 #30 tabs cephalexin 500 mg capsule 500 mg PO QID #28 caps 07/02/24 cephalexin 500 mg capsule 500 mg PO QID 7 days #28 caps 07/18/24 doxycycline hyclate 100 mg capsule 100 mg PO BID 7 days #14 caps 07/18/24 Allergies Allergy/AdvReac Type Severity Reaction Status Date / Time No Known Allergies Allergy Verified 09/19/24 20:18 [No Known Allergies*] Review of Systems 2 Review of Systems: Yes all other systems are reviewed and are negative [facility] Past Medical History Attestation statement: The following information was validated with the patient. Source: old records reviewed Medical History Foreign body (FB) in soft tissue Cellulitis Drug abuse and dependence Patient denies significant medical history Surgical History History of colonoscopy Family History Family History Father History of cancer Mother History of high blood pressure Social History Social History Household Members: Family Housing: House Unable to assess alcohol history related to: Unknown Alcohol intake: never Patient Tobacco Use Status: Current everyday Tobacco user Cigarette Packs Per Day: 0.5 Cigarettes Per Day: 10.0 Substance Use Type: Crack/Cocaine and Heroin Advance Directives: No Advance Directives Information Provided: No Do you have a plan to hurt others: No Plan service: No Current occupational status: employed Current occupation: [employer], right hand dominant Physical Exam ED Vital Signs: Vital Signs - 24 hr 09/19/24 20:16 09/19/24 23:31 Temperature 98.0 F 97.4 F Pulse Rate 50 52 Respiratory Rate 16 16 Blood Pressure 114/73 125/70 Pulse Oximetry 94 99 Oxygen Delivery Method Room Air Room Air BMI result Body Mass Index 34.5 Appearance: Alert.?Oriented to person, place and time. No acute distress.?Normal affect. Eyes: Pupils equal, round and reactive to light.? ENT: Pharynx normal.?? Neck: Normal inspection.? Neck supple.?? CVS: Heart sounds normal. Normal heart rate and rhythm.? Pulses normal.?? Respiratory: No respiratory distress.? Lung sounds clear to auscultation bilaterally?? Abdomen: Soft and non-tender. Normoactive bowel sounds. Skin: Skin warm and dry.? Normal skin color.? Extremities: No lower extremity edema.? Neuro: Moves all extremities spontaneously. Sensation intact bilaterally. CN II- XII intact. No focal neuro deficits. Ambulates with normal steady gait. Medical Decision Making Medical Decision Making [facility] Narrative: Patient is a 54-year-old male past medical history polysubstance use disorder presenting to emergency department for evaluation after being found asleep in his car. Awoke from PD breaking the window. Did not require any Narcan. Offers no physical complaints and his physical examination is benign. He arouses to verbal stimuli. He was seen in the emergency department earlier today, he met with the addiction team and plan was in place that he would self present to [facility] tomorrow morning 09/20/2024. He is requesting to remain in the emergency department overnight, as he feels if he leaves tonight he will continue to use. He is placed in physician observation at 21:00 on 09/19/2024 vital signs stable, no respiratory distress, with plan for care team/addiction medicine follow-up in the morning for assistance [place] [address] Differential Diagnosis Differential Diagnoses: The differential diagnosis associated with the presentation includes (Opioid use disorder, polysubstance use disorder) Admission/Observation Consideration of admission/observation: Escalation of care including admission/observation considered See narrative above Consult Healthcare Provider Management of the patient was discussed with: Behavioral Health Provider Lab Data [facility] Lab Attestation statement: I reviewed the patient's lab results. CBC is without leukocytosis, has a mild normocytic anemia that does not meet transfusion criteria. Electrolyte derangement. No WONG. LFTs unremarkable. Alcohol level undetectable. 09/19/24 21:15 09/19/24 21:15 Labs: Lab Results 09/19/24 Range/Units 21:15 WBC 7.2 (4.8-10.8) X10*3/uL RBC 4.50 L (4.60-5.80) X10*6/uL Hgb 13.0 L (14.0-18.0) g/dl Hct 36.9 L (42.0-52.0) % MCV 82.0 (80.0-98.0) fL MCH 28.9 (27.0-33.0) pg MCHC 35.2 (31.0-36.0) g/dl RDW 12.9 (11.0-16.0) % Plt Count 237 (160-400) X10*3/uL MPV 9.6 (9.4-12.4) fL Immature Gran % (Auto) 0.4 (0.0-0.4) % Neut % (Auto) 73.8 H (45-73) % Lymph % (Auto) 18.0 L (20-40) % Will % (Auto) 6.6 (2-11) % Eos % (Auto) 0.8 (0-4) % Baso % (Auto) 0.4 (0-2) % Lymph # (Auto) 1.3 (1.2-4.9) X10*3/uL Will # (Auto) 0.5 (0.1-1.2) X10*3/uL Eos # (Auto) 0.1 (0.0-0.4) X10*3/uL Baso # (Auto) 0.0 (0.0-0.2) X10*3/uL Abs Immat Gran (auto) 0.03 (0.00-0.03) X10*3/uL Absolute Neuts (auto) 5.3 (2.0-8.3) x10*3/uL Absolute Nucleated RBC 0.000 (0.0-0.012) X10*3/uL Nucleated RBC % (auto) 0.0 (0.0-0.2) /100WBC Sodium 140 (135-145) mmol/L Potassium 4.1 (3.3-5.1) mmol/L Chloride 107 (96-108) mmol/L Carbon Dioxide 25 (22-29) mmol/L Anion Gap 12 (12-20) BUN 14 (9-16) mg/dL Creatinine 0.77 (0.5-1.4) mg/dL Estim Creat Clear Calc 130.0 Estimated GFR > 60 Random Glucose 122 H (60-115) mg/dL Calcium 9.2 (8.4-10.2) mg/dL Total Bilirubin 1.0 (0.0-1.0) mg/dL AST 27 (5-37) U/L ALT 9 (0-40) U/L Alkaline Phosphatase 73 (39-117) U/L Total Protein 7.4 (6.5-8.0) g/dL Albumin 4.0 (3.5-5.0) g/dL Ethyl Alcohol < 10 mg/dL Independent Historian Clinical information obtained from an independent historian. History obtained from or confirmed by: EMS External Record Review External record reviewed: Outpatient record Discharge Plan Discharge Clinical Impression: Opioid use disorder Patient Disposition: Still a Patient Instructions: Opioid Use Disorder (ED) Additional Instructions: Please present to [facility] the morning of 09/20/2024. Julia's location: [address] [place] [address] Prescriptions: No Action levofloxacin 750 mg Tablet 750 mg PO Q24H Qty: 41 0RF amoxicillin-pot clavulanate [Augmentin] 875-125 mg tablet 1 tab PO Q12H 10 Days Qty: 20 0RF erythromycin 5 mg/gram (0.5 %) ointment 0.5 inch ophthalmic (eye) Q4H 7 Days Qty: 1 0RF amoxicillin-pot clavulanate [Augmentin] 875-125 mg tablet 1 tab PO Q12H 10 Days Qty: 20 0RF doxycycline monohydrate 100 mg tablet 100 mg PO BID Qty: 20 0RF ciprofloxacin-dexamethasone 0.3-0.1 % drops,suspension 4 drp otic (ear) left BID 7 Days Qty: 7.5 0RF ciprofloxacin HCl 500 mg tablet 500 mg PO BID Qty: 20 0RF ibuprofen 600 mg tablet 600 mg PO Q8H PRN (Reason: fever or pain) Qty: 20 0RF doxycycline hyclate 100 mg tablet 100 mg PO Q12H 7 Days Qty: 14 0RF cephalexin 500 mg capsule 500 mg PO QID 7 Days Qty: 28 0RF acetaminophen [Tylenol Extra Strength] 500 mg tablet 1,000 mg PO Q6H PRN (Reason: fever or pain) Qty: 20 0RF ibuprofen 400 mg tablet 400 mg PO TID PRN (Reason: fever or pain) Qty: 30 0RF cephalexin 500 mg capsule 500 mg PO QID Qty: 28 0RF cephalexin 500 mg capsule 500 mg PO QID 7 Days Qty: 28 0RF doxycycline hyclate 100 mg capsule 100 mg PO BID 7 Days Qty: 14 0RF Print Language: Mauritian
[2024-09-19 21:19] LABS: MANUAL DIFF FLAG NO
[2024-09-19 21:21] LABS: Basophils Percent Auto 0.4 % (0-2); Eosinophils Absolute Auto 0.1 X10*3/uL (0.0-0.4); Eosinophils Percent Auto 0.8 % (0-4); Hematocrit 36.9 % (42.0-52.0); Imm Gran Abs Auto 0.03 X10*3/uL (0.00-0.03); Imm Gran Pct Auto 0.4 % (0.0-0.4); Lymphocytes Absolute Auto 1.3 X10*3/uL (1.2-4.9); Mean Corpuscular HGB Conc 35.2 g/dl (31.0-36.0); Mean Corpuscular Hemoglobin 28.9 pg (27.0-33.0); Mean Platelet Volume 9.6 fL (9.4-12.4); Monocytes Absolute Auto 0.5 X10*3/uL (0.1-1.2); Monocytes Percent Auto 6.6 % (2-11); Neutrophils Absolute Auto 5.3 x10*3/uL (2.0-8.3); Neutrophils Percent Auto 73.8 % (45-73); Platelet Count 237 X10*3/uL (160-400); Red Cell Distribution Width 12.9 % (11.0-16.0); White Blood Count 7.2 X10*3/uL (4.8-10.8)
[2024-09-19 21:36] LABS: Alanine Aminotransferase 9 U/L (0-40); Alkaline Phosphatase 73 U/L (39-117); Anion Gap 12 (12-20); Aspartate Amino Transferase 27 U/L (5-37); Blood Urea Nitrogen 14 mg/dL (9-16); Calcium 9.2 mg/dL (8.4-10.2); Carbon Dioxide 25 mmol/L (22-29); Chloride 107 mmol/L (96-108); Estimated Glomerular Filt Rate > 60; Ethanol < 10 mg/dL; Glucose Random 122 mg/dL (60-115); Potassium 4.1 mmol/L (3.3-5.1); Sodium 140 mmol/L (135-145); Total Protein 7.4 g/dL (6.5-8.0)
[2024-09-19 23:31] VITALS: BP 125/70; PULSE 52; RESP 16; TEMP 36.3; O2SAT 99
[2024-09-20 01:49] VITALS: BP 111/70; PULSE 55; RESP 16; TEMP 36.3; O2SAT 96
--- NOTE | 2024-09-20 07:40 | PC.NURSE ---
Resumed care of patient at 0700, DC in, [facility] booked, pt walked to [facility] to get his belongings.
[2024-09-20 07:41] VITALS: BP 0/0; PULSE 0; RESP 0; TEMP -17.7; TEMP 0; O2SAT 0
== END 2024-09-20 07:42 | disposition home or self-care (01) ==
PROVIDERS: Emergency Provider Emergency Medicine; PCP Internal Medicine Geriatric Medicine
DX: F11.10 Opioid abuse, uncomplicated (principal); F14.10 Cocaine abuse, uncomplicated; F17.210 Nicotine dependence, cigarettes, uncomplicated; Z79.899 Other long term (current) drug therapy; Z51.81 Encounter for therapeutic drug level monitoring
CPT/HCPCS: 36415; 80053; 80307; 85025; 99284